=== PATIENT | female | born 1940 | race Caucasian/White ===

== ENCOUNTER 2018-04-05 11:00 | Outpatient (RCR) | payer MEDICARE, OTHER, SELFPAY ==
--- NOTE | 2018-03-17 11:04 | PTTR_ITS ---
DATE: 03/17/18 SUBJECTIVE: Pt reports that she has been experiencing difficulty with her breathing because of the weather. She states that her left knee still cont to give out at times. OBJECTIVE: Therapeutic procedures ([id number]). * X Provided skilled instruction in proper exercise performance: Pt completed static and dynamic balance activities with CGA. Pt did have slight LOB with heel toe walking. Pt completed scapular stabilization ther ex and LE strengthening. Pt completed functional sit to stands without the use of her hands. Pt completed the Nu Step for cardio. Pt's vitals were taken please see flow sheet for specifics. Direct treatment time: 30 Total treatment time: 40
--- NOTE | 2018-03-22 11:28 | PTTR_ITS ---
DATE: 03/22/18 SUBJECTIVE: Pt reports that her breathing has been difficult with this weather. She reports that when she uses the blue pads it causes knee discomfort. OBJECTIVE: Therapeutic procedures ([id number]). * X Provided skilled instruction in proper exercise performance: Pt completed static and dynamic balance activities with CGAx1, LE strengthening, functional sit to stands, scapular stabilization, and the Nu Step. Pt's vitals were taken please see flow sheet for specifics. Direct treatment time: 30 Total treatment time: 45
--- NOTE | 2018-03-29 11:10 | PTTR_ITS ---
DATE: 03/29/18 SUBJECTIVE: Heavenly states that she is feeling pretty good today, although her L knee is bothering her some today. OBJECTIVE: Therapeutic procedures ([id number]). * [X] See flow sheet: Patient completed a general strengthening and balance retraining program, as per flow sheet. Patient tolerated the addition of diagonal ball reach, well without LOB. Vitals were taken and recorded on the flow sheet. * [X] Provided skilled instruction in proper exercise performance * [X] Provided skilled manual cues to facilitate proper muscle recruitment and/or movement pattern * [X] Other: Patient ended with NuStep biking via [facility]. Direct treatment time: 30 minutes Total treatment time: 40 minutes
--- NOTE | 2018-03-31 12:15 | PTTR_ITS ---
DATE: 03/31/18 SUBJECTIVE: Heavenly states that her exercises have been going very well. She's feeling overall more stable, although continues to struggle with right knee pain. OBJECTIVE: * x Neuro Re-education - (15248 x2): Heavenly was instructed in a progressed and modified balance retraining program. Introduced javier disc activities for core stability, where patient requires CG throughout. She also requires CG with standing reach activities. Full program can be found on flow sheet with modifications as noted. Direct treatment time: 30 minutes Total treatment time: 45 minutes ,with remaining time spent in cardiovascular activity
--- NOTE | 2018-04-05 11:50 | PTTR_ITS ---
DATE: 04/05/18 SUBJECTIVE: Heavenly states that she's feeling well today. She did notice some soreness in both shoulders after her last session, which lasted a couple of days. She also notes that her allergies are bothering her and her breathing has been challenged for the past couple of days. OBJECTIVE: * x Neuro Re-education - (12319 x2): Patient was instructed in a progressed and modified NRE program. She required rest period x 2 due to CUELLAR, both during closed chain strengthening. She was able to progress standing hip AB to use of Airex pad, completing bilaterally, which she had been previously unable to tolerate due to right knee pain. Also progressed seated balance activities to included trunk rotation while seated on javier disc, where she requires cues for technique and continuous CG. * Added supervised UBE biking for cardiovascular retraining. * See flowsheet for remainder of program. Direct treatment time: 30 minutes Total treatment time: 45 minutes, with remainder of time spent in supervised cardiovascular activity
--- NOTE | 2018-04-12 09:33 | NT_ITS ---
04/12/18 Cancelled appointment for today. Ruthie Marino, APARTMENT LEASING AGENT
--- NOTE | 2018-04-14 08:31 | NT_ITS ---
Heavenly cancelled today's appointment. She and her are going on vacay for a few days, and she will touch base when they return home. Nayely Victoria Litharge Supervisor
== END 2018-04-15 23:59 | disposition home or self-care (01) ==
LOC: PT 11:00
PROVIDERS: PCP Family Medicine; Referring Provider Physician Assistant; Visit Provider Physician Assistant
DX: M76.01 Gluteal tendinitis, right hip (principal); Z91.81 History of falling; R26.89 Other abnormalities of gait and mobility
CPT/HCPCS: 97110; 97112

== ENCOUNTER 2018-10-06 20:18 | Outpatient (REF) | payer MEDICARE, OTHER, SELFPAY ==
[2018-10-06 20:56] LABS: Bilirubin Negative (Negative); Blood Moderate (Negative); Clarity Clear; Glucose Negative (Negative); Ketones Negative (Negative); Leukocyte Esterase Small (Negative); Nitrite Negative (Negative); Specific Gravity >= 1.030 (1.005-1.025); Urobilinogen 0.2 EU/dL (Up TO 0.2); pH 5.5 (5-8)
[2018-10-06 21:10] LABS: Epithelial Cells Many HPF (Negative); WBC >50 HPF (0-5)
[2018-10-06 21:11] LABS: Bacteria Negative HPF (Negative); C & S Indicated? No/Sq. Contamination; Casts Negative LPF (Negative); Crystals Rare Calcium Oxalate HPF (Negative); Mucus Negative (Negative)
== END 2018-10-06 20:38 ==
LOC: LBN 20:18
PROVIDERS: PCP Family Medicine; Visit Provider Nurse Practitioner Family
DX: R39.89 Other symptoms and signs involving the genitourinary system (principal)
CPT/HCPCS: 81003; 81015

== ENCOUNTER 2018-12-21 10:34 | Outpatient (CLI) | payer MEDICARE, OTHER, SELFPAY ==
[2018-12-21 14:40] LABS: TSH (W/Ref FT4) 2.43 uIU/mL (0.358-3.74)
== END 2018-12-21 10:54 ==
PROVIDERS: PCP Family Medicine; Visit Provider Family Medicine
DX: R79.89 Other specified abnormal findings of blood chemistry (principal); I10 Essential (primary) hypertension
CPT/HCPCS: 36415; 84443

== ENCOUNTER 2019-03-03 12:12 | Emergency (ER) | payer MEDICARE, OTHER, SELFPAY ==
[2019-03-03 12:19] VITALS: BP 128/44; PULSE 90; RESP 18; TEMP 36.6; O2SAT 93
--- NOTE | 2019-03-03 13:05 | DI.RAD_ITS ---
SYMPTOM/DIAGNOSIS: FELL, PAIN RIGHT SHOULDER: Three views. There is a comminuted fracture involving the proximal humerus. The fracture involves the surgical neck with extension into the greater tuberosity. There is mild displacement of the greater tuberosity fracture component. There are moderate degenerative changes of the acromioclavicular joint. The bones appear osteopenic. The soft tissues are unremarkable. IMPRESSION: Mildly displaced comminuted fracture involving the proximal right humerus. If further imaging is warranted, a CT scan may be considered.
[2019-03-03] MEDS: Ibuprofen 600 MG TAB (13:06)
--- NOTE | 2019-03-03 13:40 | ED.GENADUL_ITS ---
Discharge Plan Disposition Patient Disposition: HOME Condition: Stable Discharge Details Chief Complaint: Orthopedic Clinical Impression: Right humeral fracture Primary Care Provider: Linus Saha ED Provider: Ofe Bianchi Home Meds and New Rx's Prescriptions: New oxycodone 5 mg tablet 5 mg PO Q6H PRN (Reason: pain) Qty: 10 RF: 0 Continued aspirin [Adult Low Dose Aspirin] 81 mg tablet,delayed release (DR/EC) 81 mg PO DAILY RF: 0 metoprolol tartrate 25 mg tablet 25 mg PO BID Qty: 180 RF: 3 (DME) Aerochamber MV spacer See Dose Instructions .ROUTE .MEDSUPPLY Qty: 1 RF: 0 albuterol sulfate [Ventolin HFA] 90 mcg/actuation HFA aerosol inhaler 2 puff IH Q4H PRN (Reason: shortness of breath or wheezing) Qty: 8.5 RF: 11 acetaminophen 500 MG tablet 1,000 mg PO daily prn RF: 0 ranitidine HCl [Zantac Maximum Strength] 150 mg tablet 150 mg PO DAILY PRNQty: 60 RF: 5 Discharge Instructions Instructions: Proximal Humerus Fracture (ED) Additional Instructions: Rest and ice right shoulder and upper arm as much as possible. Keep your right arm in the sling until follow-up with orthopedics. Alternate Tylenol and Motrin as needed and directed for pain. Take the oxycodone if you have no relief with Tylenol or Motrin. Call Dr. Eric's office today to schedule a follow-up appointment for reeval uation. Return to the emergency department if you develop any worsening or new concerning symptoms. Referrals: Clark Eric MD [ [facility] STAFF PHYSICIAN] - Discharge Data Discharge Date/Time-TO BE ENTERED AT DEPARTURE: 03/03/19 14:24 Discharge Physician: Ofe Bianchi Medical Decision Making 78-year-old female presents with right shoulder pain status post mechanical fall directly onto her right shoulder today. No other injuries. Denies any complaint of head injury. Pain in right shoulder and upper arm with range of motion. No obvious deformity or open wounds. Neurovascularly intact. Will give a dose of ibuprofen and send for right shoulder x-ray. Right shoulder x-ray notes a proximal humerus fracture. Patient is comfortable in sling. Case discussed with Dr. Eric and agrees with plan for sling if patient comfortable and will follow up with patient next week. Patient instructed to alternate Tylenol and Motrin. She was given a prescription for oxycodone if needed for breakthrough pain. Allergy list notes an allergy to codeine but states this causes GI upset and denies any history of anaphylaxis. She is instructed to call Dr. Eric's office today to schedule a follow-up appointment for reevaluation next week and to return at anytime if worse. Medical Records Medical records reviewed: Yes I reviewed the patient's medical records. Imaging Data Radiologic Study: Radiologist's impression: RIGHT SHOULDER: Three views. There is a comminuted fracture involving the proximal humerus. The fracture involves the surgical neck with extension into the greater tuberosity. There is mild displacement of the greater tuberosity fracture component. There are moderate degenerative changes of the acromioclavicular joint. The bones appear osteopenic. The soft tissues are unremarkable. IMPRESSION: Mildly displaced comminuted fracture involving the proximal right humerus. If further imaging is warranted, a CT scan may be considered. HPI General Mode of arrival: ambulatory . Date/Time Provider Initiated Documentation: 03/03/19 12:18 . Limitations to Documentation: no limitations . Information obtained by: patient . HPI Narrative: Patient is a 78-year-old female presents with right shoulder pain after mechanical fall today. Patient states she was walking when she slipped on grass and lost her footing and fell onto her right shoulder onto the ground. She denies any head injury, vomiting, neck pain, other extremity injury, chest pain or shortness of breath. She has not taken anything for pain. She is complaining of pain mainly in her right shoulder and upper arm. Related Data Home Medications Medication Instructions Recorded Confirmed acetaminophen 1,000 mg PO daily prn tab-cap 05/01/16 03/03/19 aspirin 81 mg tablet,delayed 81 mg PO DAILY 06/22/18 03/03/19 release metoprolol tartrate 25 mg tablet 25 mg PO BID #180 tab-cap 12/21/18 03/03/19 albuterol sulfate 90 mcg/actuation 2 puff IH Q4H PRN #8.5 gm 01/24/19 03/03/19 aerosol inhaler inhalational spacing device #1 each 01/24/19 03/03/19 ranitidine HCl 150 mg tablet 150 mg PO DAILY PRN #60 tab-cap 01/24/19 03/03/19 oxycodone 5 mg PO Q6H PRN #10 tab 03/03/19 Previous Rx's Medication Instructions Recorded metoprolol tartrate 25 mg tablet 25 mg PO BID #180 tab-cap 12/21/18 albuterol sulfate 90 mcg/actuation 2 puff IH Q4H PRN #8.5 gm 01/24/19 aerosol inhaler inhalational spacing device #1 each 01/24/19 oxycodone 5 mg PO Q6H PRN #10 tab 03/03/19 Allergies Allergy/AdvReac Type Severity Reaction Status Date / Time codeine AdvReac Severe GI UPSET Unverified 03/03/19 12:26 omeprazole AdvReac Unverified 03/03/19 12:26 Edward AdvReac Severe Nausea Uncoded 03/03/19 12:26 General Stated Complaint: Orthopedic INOCENCIA: 4 Review of Systems Review of Systems All systems reviewed & are unremarkable except as noted in HPI and below Constitutional Reports as per HPI, Denies chills and Denies fever(s) Eyes Denies blurry vision ENT Denies dizziness, Denies sore throat and Denies throat swelling Cardiovascular Denies chest pain and Denies dyspnea Respiratory Denies cough and Denies dyspnea Gastrointestinal Denies abdominal pain, Denies diarrhea and Denies vomiting Genitourinary Denies hematuria and Denies dysuria Musculoskeletal Denies back pain, Denies numbness and Reports other (R shoulder pain ) Integumentary/Breasts Denies lesions and Denies rash Neurologic Denies dizziness, Denies focal weakness and Denies numbness Allergic/Immunologic Denies throat swelling [facility] Medical History COPD (chronic obstructive pulmonary disease) (Chronic) Diverticulitis (Inactive) Essential hypertension (Inactive 04/04/12) Malignant neoplasm of breast (female), unspecified site (Inactive) TIA (transient ischemic attack) (Inactive) Surgical History Cholecystectomy (09/03/16) Social History Smoking/Tobacco Use Status: Former Tobacco Use Alcohol Intake: never Drug use: Never Substance use type: does not use Do you feel safe at home: Yes Do you feel safe in your relationship?: Yes Exam Const General: cooperative, healthy appearing and no acute distress HENMT Head: normal to inspection Mouth: oral mucosae normal Eyes General: appearance normal, both eyes and all related structures Neck Neck: normal visual inspection Resp Effort & Inspection: normal respiratory effort and able to speak in complete sentences Cardio Rate: regular rate Back/Spine/Pelvis Cervical Spine: No cervical muscular tenderness, No cervical spinal tenderness and No step off deformity Skin General skin exam: no rashes or lesions noted Neuro General: alert, awake and oriented x3 Motor: muscle tone normal throughout Other: Good right hand manufacturing mechanic. Motor/sensory grossly intact right upper extremity. Extrem Other: Pain in right shoulder and upper arm with range of motion. Tenderness to palpation of right posterior shoulder. No obvious deformities noted. No tenderness palpation of right elbow, forearm, wrist or hand. Cap refill less than 2 seconds. No edema, ecchymosis or erythema noted. No open wounds noted Psych Appearance: grossly normal Affect: normal affect Course Vital Signs Temperature 97.9 F 03/03/19 12:19 Pulse 90 03/03/19 12:19 Respiratory Rate 18 03/03/19 12:19 Blood Pressure 128/44 L 03/03/19 12:19 Pulse Oximetry 93 L 03/03/19 12:19 Temperature 97.9 F 03/03/19 12:19 Temperature Source Skin 03/03/19 12:19 Pulse 90 03/03/19 12:19 Respiratory Rate 18 03/03/19 12:19 Respiratory Effort Non-Labored 03/03/19 12:25 Blood Pressure 128/44 L 03/03/19 12:19 Blood Pressure Position Sitting 03/03/19 12:19 Pulse Oximetry 93 L 03/03/19 12:19 Oxygen Delivery Method Room Air 03/03/19 12:19 Oxygen Flow Rate 0 03/03/19 12:19 Pain Level 6 03/03/19 12:19
== END 2019-03-03 14:24 | disposition home or self-care (01) ==
PROVIDERS: Emergency Provider Physician Assistant; PCP Family Medicine
DX: S42.351A Displaced comminuted fracture of shaft of humerus, right arm, initial encounter for closed fracture (principal); W01.0XXA Fall on same level from slipping, tripping and stumbling without subsequent striking against object, initial encounter; J44.9 Chronic obstructive pulmonary disease, unspecified; Z87.891 Personal history of nicotine dependence
CPT/HCPCS: 99283; 73030; L3650

== ENCOUNTER 2019-03-08 14:45 | Outpatient (CLI) | payer MEDICARE, OTHER, SELFPAY ==
--- NOTE | 2019-03-08 14:21 | DI.RAD_ITS ---
SYMPTOM/DIAGNOSIS: RT PROX HUMERUS FX RIGHT SHOULDER: Three views. Comparison 03/03/19 There has been no change in alignment of the fracture involving the proximal right humerus. There are degenerative changes seen at the acromioclavicular joint. The soft tissues are unremarkable. IMPRESSION: Stable proximal right humeral fracture.
== END 2019-03-08 15:05 ==
PROVIDERS: PCP Family Medicine; Referring Provider Family Medicine; Visit Provider Student in an Organized Health Care Education/Training Program
DX: S42.291A Other displaced fracture of upper end of right humerus, initial encounter for closed fracture (principal); W01.0XXA Fall on same level from slipping, tripping and stumbling without subsequent striking against object, initial encounter
CPT/HCPCS: 99203; 99213; 73030

== ENCOUNTER 2019-04-03 13:54 | Outpatient (CLI) | payer MEDICARE, OTHER, SELFPAY ==
--- NOTE | 2019-04-03 10:57 | DI.RAD_ITS ---
SYMPTOM/DIAGNOSIS: F/U FRACTURE RIGHT SHOULDER: 04/03 Three views were obtained and show previously described proximal humeral fracture with no gross interval change in alignment of the fracture fragments allowing for differences in projection in comparison with examination of March 08. There is mild callus formation at the fracture site.
== END 2019-04-03 14:14 ==
PROVIDERS: PCP Family Medicine; Referring Provider Family Medicine; Visit Provider Student in an Organized Health Care Education/Training Program
DX: X58.XXXA Exposure to other specified factors, initial encounter (principal); S42.291A Other displaced fracture of upper end of right humerus, initial encounter for closed fracture
CPT/HCPCS: 99213; 73030

== ENCOUNTER 2019-05-01 11:34 | Outpatient (CLI) | payer MEDICARE, OTHER, SELFPAY ==
--- NOTE | 2019-05-01 11:12 | DI.RAD_ITS ---
SYMPTOMS/DIAGNOSIS: F/U FRACTURE RIGHT SHOULDER: The study is compared with the previous exam of 04/03/19. There has been further filling in of the fracture line in the proximal humerus. There has been no interval change in the alignment of the fracture fragments. There is nothing to suggest that healing is not progressing satisfactorily at the present time.
== END 2019-05-01 11:54 ==
PROVIDERS: PCP Family Medicine; Visit Provider Student in an Organized Health Care Education/Training Program
DX: S42.291A Other displaced fracture of upper end of right humerus, initial encounter for closed fracture (principal); X58.XXXA Exposure to other specified factors, initial encounter; I10 Essential (primary) hypertension; J44.9 Chronic obstructive pulmonary disease, unspecified; Z87.891 Personal history of nicotine dependence
CPT/HCPCS: 99213; 73030

== ENCOUNTER 2019-06-12 13:12 | Outpatient (CLI) | payer MEDICARE, OTHER, SELFPAY ==
--- NOTE | 2019-06-12 13:03 | DI.RAD_ITS ---
EXAM: XR SHOULDER RT COMPLETE 2+V INDICATION: f/u of right humerus fracture. COMPARISON: XR shoulder RT complete 2+V from 05/01/2019 TECHNIQUE: 2D digital imaging was performed. FINDINGS: There has been no change in alignment of the healing proximal right humeral fracture. No new fractur e or dislocation is identified. There are degenerative changes seen at both the acromioclavicular madonna int and the glenohumeral joint. There is a spur off the inferior aspect of the acromion. The soft t issues are unremarkable. IMPRESSION: Stable proximal right humeral fracture.
== END 2019-06-12 13:32 ==
PROVIDERS: PCP Family Medicine; Referring Provider Family Medicine; Visit Provider Student in an Organized Health Care Education/Training Program
DX: S42.291D Other displaced fracture of upper end of right humerus, subsequent encounter for fracture with routine healing (principal); M75.81 Other shoulder lesions, right shoulder; M19.011 Primary osteoarthritis, right shoulder
CPT/HCPCS: 99213; 73030

== ENCOUNTER 2019-07-17 14:32 | Outpatient (CLI) | payer MEDICARE, OTHER, SELFPAY ==
--- NOTE | 2019-07-17 14:49 | DI.RAD_ITS ---
EXAM: XR SHOULDER RT COMPLETE 2+V INDICATION: F/U FRACTURE. COMPARISON: XR shoulder RT complete 2+V from 05/01/2019 XR SHOULDER RT COMPLETE 2+V from 06/12/2019 TECHNIQUE: 2D digital imaging was performed. FINDINGS: There has been continued healing of the proximal right humeral fracture. No change in alignment of t he fracture is noted. No new fractures or dislocations are present. Degenerative changes are seen i n the glenohumeral joint and the acromioclavicular joint. The soft tissues are unremarkable.
== END 2019-07-17 14:52 ==
PROVIDERS: PCP Family Medicine; Referring Provider Family Medicine; Visit Provider Student in an Organized Health Care Education/Training Program
DX: S42.351D Displaced comminuted fracture of shaft of humerus, right arm, subsequent encounter for fracture with routine healing (principal); M19.011 Primary osteoarthritis, right shoulder; X58.XXXD Exposure to other specified factors, subsequent encounter; J44.9 Chronic obstructive pulmonary disease, unspecified; Z87.891 Personal history of nicotine dependence; I10 Essential (primary) hypertension
CPT/HCPCS: 99213; 73030

== ENCOUNTER 2019-12-19 10:45 | Outpatient (CLI) | payer MEDICARE, OTHER, SELFPAY ==
[2019-12-19] MEDS: Omnipaque 350 MG/ML 50 ML BTL IJ (14:54)
[2019-12-19] MEDS: Breeza Beverage 473 ML BTL PO ×2 (14:55→14:56)
[2019-12-19 14:58] LABS: Abs Immature Grans 0.05 k/cumm (0.0-0.09); Absolute Basophil Count 0.02 k/cumm (0.0-0.2); Absolute Eosinophil Count 0.18 k/cumm (0.0-0.7); Absolute Lymphocyte Count 1.79 k/cumm (1.2-3.4); Absolute Monocyte Count 1.15 k/cumm (0.11-0.7); Absolute Neutrophil Count 13.42 k/cumm (1.2-6.7); Basophils % 0.1; Eosinophils % 1.1; HCT 42.2 % (36.0-46.0); HGB 12.7 g/dL (12.0-15.5); Immature Grans % 0.3 %; Lymphocytes % 10.8; Mean Corp. HGB Concentration 30.1 g/dL (32.0-36.0); Mean Corpuscular Volume 86.5 fL (80-95); Mean Platelet Volume 9.4 fL (8.0-11.0); Monocytes % 6.9; Neutrophils % 80.8; Platelet Count 600 x1000/uL (130-400); RBC 4.88 m/cumm (4.00-5.20); RBC Distribution Width 15.9 % (11.7-14.6); White Blood Cell Count 16.61 k/cumm (4.4-10.8)
[2019-12-19 15:06] LABS: ALT 15 U/L (14-59); AST 13 U/L (15-37); Albumin 2.6 g/dL (3.4-5.0); Alkaline Phosphatase 73 U/L (46-116); Anion Gap 6.4 mmol/L (3-11); BUN 8 mg/dL (7-18); Bilirubin, Total 0.6 mg/dL (0.2-1.0); CO2 30.6 mmol/L (21.0-32.0); CREATININE 0.76 mg/dL (0.55-1.02); Calcium 9.1 mg/dL (8.5-10.1); Chloride 99 mmol/L (98-107); Glucose 122 mg/dL (74-106); Potassium 3.9 mmol/L (3.5-5.1); Sodium 136 mmol/L (136-145); Total Protein 7.4 g/dL (6.4-8.2)
--- NOTE | 2019-12-19 15:45 | DI.CT_ITS ---
EXAM: CT ABDOMEN PELVIS WO CLINICAL HISTORY: lower abd pain, nausea, abd wall bulge, R11.0, R19.00. TECHNIQUE: Imaging Protocol: Axial computed tomography images with coronal and sagittal reformatted images were created and reviewed. Oral: Yes COMPARISON: ABD PELVIS WITH CONTRAST from 09/03/2016 FINDINGS: The exam is limited by patient's refusal of IV contrast as well as motion. A limited amount oral contrast is seen within loops of small bowel. ABDOMEN: Lung Bases: Mild respiratory motion. No effusion or infiltrate. Normal heart size. Mild coronary a rtery calcifications. Liver: Mild fatty infiltration. No measurable mass. Gallbladder and biliary tract: Status post cholecystectomy. No biliary dilation. Pancreas: Normal density, no abnormal calcifications or inflammatory process. Spleen: Normal. Kidneys: Normal size, contour and axis. No radiodense stones or obstructive uropathy. No masses seen. Adrenal glands: A circumscribed mass is seen on the left adrenal gland containing fat. Findings coul d represent an adenoma versus angiomyolipoma.. Lymph nodes: Within normal limits. Abdominal Aorta: Abdominal portion non-dilated. Sszs-fc-[id number] calcifications. PELVIS: Bladder: Symmetric distention, no gross wall thickening. Bowel: Small hiatal hernia. Diverticulosis greatest of the sigmoid. No diverticulitis. Normal appe ndix no obstruction or bowel wall thickening. Soft tissues: There is a low-density collection seen within or adjacent to the right lateral rectus muscle. It measures 16 by 13.5 x 8.4 cm. It has a so mewhat lobulated contour or. It measures water density. Findings could represent a seroma or hemato ma. Peritoneal cavity: No ascites, collection or mesenteric inflammatory response. Reproductive organs: Within normal limits. Bones: Mild degenerative disc changes. IMPRESSION: Lobulated low-density collection adjacent to the right lateral rectus muscle could represent a post traumatic hematoma or seroma. Evaluation for solid mass is limited without IV contrast. RADIATION DOSE DELIVERED: Total DLP DATA REPOSITORY: All CT scans at this facility are submitted to the National Radiology Data Registry (NRDR) Dose Index Registry (DIR) with the [employer] (ACR). RADIATION OPTIMIZATION: All CT scans at this facility use at least one of these dose optimization te chniques: automated exposure control; mA and/or kV adjustment per patient size (includes targeted exa ms where dose is matched to clinical indication); or iterative reconstruction.
== END 2019-12-19 11:05 ==
PROVIDERS: PCP Family Medicine; Visit Provider Family Medicine
DX: R10.32 Left lower quadrant pain (principal); R11.0 Nausea; R19.00 Intra-abdominal and pelvic swelling, mass and lump, unspecified site; D64.9 Anemia, unspecified; K76.0 Fatty (change of) liver, not elsewhere classified; D44.12 Neoplasm of uncertain behavior of left adrenal gland; K44.9 Diaphragmatic hernia without obstruction or gangrene
CPT/HCPCS: 36415; 80053; 74176; 85025; Q9967

== ENCOUNTER → 2019-12-20 09:55 | Outpatient (BNVA) | payer MEDICARE, OTHER, SELFPAY | PROVIDERS: PCP Family Medicine; Referring Provider Family Medicine; Visit Provider Surgery | DX: S30.1XXA Contusion of abdominal wall, initial encounter; X58.XXXA Exposure to other specified factors, initial encounter; R11.0 Nausea; R19.00 Intra-abdominal and pelvic swelling, mass and lump, unspecified site; D72.828 Other elevated white blood cell count; L08.9 Local infection of the skin and subcutaneous tissue, unspecified; I10 Essential (primary) hypertension; J44.9 Chronic obstructive pulmonary disease, unspecified ==

== ENCOUNTER 2019-12-20 11:36 | Outpatient (REF) | payer MEDICARE, OTHER, SELFPAY ==
[2019-12-20 11:45] LABS: Abs Immature Grans 0.07 k/cumm (0.0-0.09); Absolute Basophil Count 0.04 k/cumm (0.0-0.2); Absolute Eosinophil Count 0.16 k/cumm (0.0-0.7); Absolute Lymphocyte Count 1.68 k/cumm (1.2-3.4); Absolute Neutrophil Count 14.64 k/cumm (1.2-6.7); Basophils % 0.2; Eosinophils % 0.9; HCT 42.9 % (36.0-46.0); HGB 13.1 g/dL (12.0-15.5); Immature Grans % 0.4 %; Lymphocytes % 9.3; Mean Corp. HGB Concentration 30.5 g/dL (32.0-36.0); Mean Corpuscular Volume 85.3 fL (80-95); Mean Platelet Volume 9.8 fL (8.0-11.0); Monocytes % 8.3; Neutrophils % 80.9; Platelet Count 592 x1000/uL (130-400); RBC 5.03 m/cumm (4.00-5.20); RBC Distribution Width 16.1 % (11.7-14.6)
[2019-12-20 12:02] LABS: ALT 17 U/L (14-59); AST 14 U/L (15-37); Albumin 2.7 g/dL (3.4-5.0); Alkaline Phosphatase 79 U/L (46-116); Anion Gap 7.5 mmol/L (3-11); BUN 9 mg/dL (7-18); Bilirubin, Total 0.6 mg/dL (0.2-1.0); C-Reactive Protein 22.52 mg/dL (0.0-0.3); CO2 32.5 mmol/L (21.0-32.0); CREATININE 0.74 mg/dL (0.55-1.02); Calcium 8.9 mg/dL (8.5-10.1); Chloride 98 mmol/L (98-107); Glucose 105 mg/dL (74-106); Potassium 4.6 mmol/L (3.5-5.1); Sodium 138 mmol/L (136-145); Total Protein 6.7 g/dL (6.4-8.2)
== END 2019-12-20 11:56 ==
LOC: LBN 11:36
PROVIDERS: PCP Family Medicine; Visit Provider Surgery
DX: D72.828 Other elevated white blood cell count; R11.0 Nausea; R19.09 Other intra-abdominal and pelvic swelling, mass and lump; R10.9 Unspecified abdominal pain
CPT/HCPCS: 80053; 87040; 85025; 85610; 86140

== ENCOUNTER 2019-12-20 12:42 | Inpatient (IN) | payer MEDICARE, OTHER, SELFPAY ==
[2019-12-20] VITALS (9 sets, daily range): BP systolic 104–159; BP diastolic 39–72; PULSE 88–100; RESP 17–28; TEMP 36.2–36.8; O2SAT 91–100
--- NOTE | 2019-12-20 12:52 | W.PM.HP.N ---
Date of service: 12/20/19 Time of Service: 12:53 Assessment and Plan Assessment and plan (1) Nausea: Status: Acute (2) Abdominal wall hematoma: Status: Acute (3) Other elevated white blood cell count: Status: Acute (4) Abdominal wall bulge: Status: Acute (5) Uncomplicated asthma: Status: Acute (6) Elevated TSH: Status: Chronic (7) Transient cerebral ischemia: Status: Acute (8) Palpitations: Status: Acute (9) Increased body mass index: Status: Chronic (10) History of tobacco use: Status: Acute (11) Chronic obstructive pulmonary disease: Status: Acute (12) Hiatal hernia: Status: Acute (13) Traumatic hematoma of abdominal wall with infection: Status: Acute Assessment and plan: will go for I&D today start on zosyn cultures-pd ct and labs reviewed risks:bleeding/infection/scarring/need for mult surgeries/complications of anethesia/others History of Present Illness Consults Consult date: 12/20/19 Narrative: pt was seen in office today regarding ant abdomal wall mass- which appears to be lg fluid collection. it appears to be a heatoma. Pt was moving a safe about a month ago and started having pain. She notes it has b/c more painful. She has nause, dizziness, can't eat. increasing pain. no redness/drianage. denies fever/chills. she is on asa- she is not sure why she is on it. does not take any other blood thinners. She does not take NSAID's. no hx of bleeding d/o. hgb was nl WBC yest was 16. repeat wbc in office today is 18. she will be taken to or for I&D. Review of Systems All systems reviewed & are unremarkable except as noted in HPI and below PFSH Medical History (Updated 12/20/19 @ 21:53 by Radha Cartwright DO) Abdominal wall hematoma (Acute) Allergy (Acute) COPD (chronic obstructive pulmonary disease) (Chronic) Diverticulitis (Acute) Essential hypertension (Acute 04/04/12) Malignant neoplasm of breast (female), unspecified site (Acute) LEFT BREAST Nausea (Acute) Nausea (Acute) Other elevated white blood cell count (Acute) Phlegm in throat (Acute) TIA (transient ischemic attack) (Inactive) Traumatic hematoma of abdominal wall with infection (Acute) Surgical History Cholecystectomy (09/03/16) Social History Smoking/Tobacco Use Status: Former Tobacco Use Quit Date: 12/14/88 Alcohol Intake: never Drug use: Never Substance use type: does not use Current gender identity: female Do you feel safe at home: Yes Do you feel safe in your relationship?: Yes Meds Home Medications and Allergies Home Medications Medication Instructions Recorded Confirmed Type acetaminophen 1,000 mg PO daily prn tab-cap 05/01/16 12/20/19 History aspirin 81 mg tablet,delayed 81 mg PO DAILY 06/22/18 12/20/19 History release metoprolol tartrate 25 mg tablet 25 mg PO BID #180 tab-cap 12/21/18 12/20/19 Rx albuterol sulfate 90 mcg/actuation 2 puff IH Q4H PRN #8.5 gm 01/24/19 12/20/19 Rx aerosol inhaler inhalational spacing device #1 each 01/24/19 12/19/19 Rx dimenhydrinate 25 mg chewable 50 mg PO Q8H PRN 12/19/19 12/20/19 History tablet famotidine 20 mg tablet 20 mg PO DAILY PRN 12/19/19 12/20/19 History prochlorperazine maleate 10 mg 10 mg PO Q8H PRN #20 tab 12/19/19 12/20/19 Rx tablet Allergies Allergy/AdvReac Type Severity Reaction Status Date / Time codeine AdvReac Severe GI UPSET Unverified 12/20/19 10:03 omeprazole AdvReac Unverified 12/20/19 10:03 Edward AdvReac Severe Nausea Uncoded 12/20/19 10:03 Exam HENMT Head: normal to inspection Teeth and gingiva: edentulous Other: tongue- nl no jaundice Neck Other: sclera clear no JVD Chest Chest: normal inspection of the chest Resp Effort & Inspection: normal respiratory effort and able to speak in complete sentences Auscultation: clear to auscultation bilaterally GI Inspection: other Other: 8x8 soft tissue fluid collection right side lateral to the umbilicus. no echo=ymosis/redness/drainage. ballotable. noted on US- appears mostly liquid. very tender Skin General skin exam: no rashes or lesions noted Extrem Other: change sin joints consistent w/ OA. mild LE edema COVID-19 Screening Traveled to [place] from one of the affected countries or regions?: NO Recent travel in the [place] within the last 14 days?: No Recent out of the country travel within the last 14 days?: No Had IN PERSON contact w/suspected or confirmed C-19 person: No Have you had the following symptoms in the past few days?: No Symptoms noted since travel?: No Symptoms
--- NOTE | 2019-12-20 14:30 | DI.RAD_ITS ---
EXAM: XR CHEST 2V PA LATERAL CLINICAL HISTORY: hx of breast cancer TECHNIQUE: 2D digital imaging was performed. COMPARISON: ABD FLAT UPRIGHT PA CHEST from 09/03/2016 LEFT SHOULDER COMPLETE from 11/18/2017 FINDINGS: The heart size is normal. The aorta is mildly tortuous. The lung bases are partially obscured by ab dominal soft tissues. The lungs appear clear. Degenerative changes are seen in the thoracic spine. There is also degenerative changes of both shoulders, right greater than left. IMPRESSION: No acute pulmonary findings. DATA REPOSITORY: RADIATION DOSE DELIVERED:
[2019-12-20 14:56] LABS: Iron 27 ug/dL (50-170); Total Iron Binding Capacity 172 ug/dL (250-450); Transferrin Sat 16 % (15-50)
[2019-12-20] MEDS: Lactated Ringers 1,000 ML 30 ML IV (15:05)
[2019-12-20] MEDS: PIPERACILLIN/TAZO 3.375 GM in Normal Saline 50 ML IVPB ×2 (15:05→19:14)
[2019-12-20 15:06] LABS: INR 1.1 (0.9-1.1); Prothrombin Time 10.7 sec (9.3-11.0)
[2019-12-20 15:10] LABS: Ferritin 410 ng/mL (8-252)
[2019-12-20] MEDS: Bupivacaine 0.25% Pres-Free 30 ML VIAL (16:31)
--- NOTE | 2019-12-20 16:35 | W.PM.OP ---
Date of service: 12/20/19 Time of Service: 16:35 Operative Note Operative Note DATE OF PROCEDURE: 12/20/19 POST-OP DIAGNOSIS: same PROCEDURE: I & D of right lateral anterior abdominal wall. [id number]- irregular shaped cavity. SURGEON: Radha Cartwright ANESTHESIA: MEHRDADA ESTIMATED BLOOD LOSS: 50 PATHOLOGY: other COMPLICATIONS: None Patient was transported to: PACU Findings: 800cc of purulent discharge evacuated- minimal old hematoma and necrotic debris. Procedure Description: Patient is here today for evacuation of infected hematoma is seen by CAT scan and bedside ultrasound. She has a white count of 18,000. She did receive blood cultures and preop antibiotics. Informed consent is obtained explaining risks and benefits of procedure including but not limited to: Bleeding, infection, pneumonia, blood clots, complications of anesthesia, scarring, need for repeat procedures, healing complication is and other unforetold complications. Patient is brought to the operating room suite and placed in supine position. Anesthesia was administrated per the department of an anesthesia. Patient is prepped and draped in the usual sterile fashion using a Betadine scrub solution. Timeout is performed. 20 cc of quarter percent Marcaine is used to anesthetize the area. A #15 blade is used to make a 1 inch incision over the apex of the abscess- which is the right lateral anterior abdominal wall. This probably started in the right rectus muscle. 800 cc of purulent drainage and infected hematoma and necrotic is removed. The wound is then irrigated with 3 L of sterile saline. It measures 22 cm x 24 cm x 7 cm. 2 JPs are placed in the wound 1 superiorly and laterally and one interiorly and medially. These are sewn in with 2-0 nylon. Sterile compression dressing is applied. Patient tolerated the procedure well is transferred to recovery room in stable condition. Patient will be admitted for IV antibiotics.
[2019-12-20] MEDS: Normal Saline 1,000 ML 75 ML IV (17:23)
[2019-12-20] MEDS: Sennosides/Docusate Sodium TAB 1 TAB PO (19:14)
[2019-12-20] MEDS: Metoprolol 25 MG TAB PO (19:14)
[2019-12-20] MEDS: Acetaminophen 325 MG TAB 650 MG PO (21:50)
[2019-12-20] MEDS: traMADol 50 MG TAB PO (21:51)
--- NOTE | 2019-12-20 21:52 | W.PM.PROGNOT ---
Date of Service Date of service: 12/20/19 Time of Service: 22:10 Assessment and Plan Assessment and plan (1) Abdominal wall hematoma: Status: Acute (2) Traumatic hematoma of abdominal wall with infection: Status: Acute Assessment and plan: The patient is doing well post-op. There pain is well controlled. They are having no nausea or vomiting. The pt is not having any chest pain or SOB, productive cough; no calf pain or swelling. The pt pain is adequately controlled. The case was discussed with nursing and pateints progress reviewed. All of the pt's home medications were addressed and adjusted accordingly for their oral intact status. HEENT: no jaundice. no eye pain/drainage/redness/swelling. mild sore throat cardio- NSR no chest pain, BP stable. pulm: no sob or productive cough. no hemoptysis incision- clean/dry. dressing intact no excessive bleeding or drainage I discussed with the patient and/or there family about the findings in surgery and the pt's progress. We reviewed expectations for progress in the hospital; what the pt could expect for recovery time and length of stay. We discussed the importance of walking and pulmonary toilet to avoid blood clots and pneumonia. Continue current plans for pulmonary toilet, GI and DVT prophylaxis. We shall continue the current plan for pain management as it is at an appropriate level and working well for the pt. Appropriate measures will be taken for constipation prevention as well, and this was also reviewed with the pt. wound care plan was reviewed with nursing as well. see orders cultures-pd abx- zosyn hold asa/lovenox consult care management for home health Objective Objective Clinical Data: Abnormal lab results 12/20/19 12/20/19 Range/Units 13:55 13:55 Iron 27 L (50-170) ug/dL TIBC 172 L (250-450) ug/dL Ferritin 410 H (8-252) ng/mL Vital Signs Temperature 36.2 C L 12/20/19 19:20 Temperature Source Tympanic 12/20/19 19:20 Pulse 100 H 12/20/19 19:20 Pulse Rhythm Regular 12/20/19 19:29 Respiratory Rate 18 12/20/19 19:20 Respiratory Effort Non-Labored 12/20/19 19:29 Respiratory Depth Normal 12/20/19 19:29 Respiratory Pattern Normal 12/20/19 13:07 Blood Pressure 130/60 05/06/20 19:20 Pulse Oximetry 93 L 12/20/19 19:44 Respiratory End-tidal CO2 36 12/20/19 16:43 Oxygen Delivery Method Room Air 12/20/19 19:44 Oxygen Flow Rate 0 12/20/19 19:44 Pain Level 4 12/20/19 21:51 Intake & Output 12/19/19 12/20/19 12/20/19 23:59 11:59 23:59 Intake Total 550 / 550 Balance 550 / 550 Weight 90.8 kg Intake: IV 550 / 550 Laboratory Results PT 10.7 sec (9.3-11.0) 12/20/19 13:55 INR 1.1 (0.9-1.1) 12/20/19 13:55 Iron 27 ug/dL (50-170) L 12/20/19 13:55 TIBC 172 ug/dL (250-450) L 12/20/19 13:55 Transferrin % Sat 16 % (15-50) 12/20/19 13:55 Ferritin 410 ng/mL (8-252) H 12/20/19 13:55 COVID-19 PCR Cancelled 12/20/19 17:13 Nasopharyn COVID-19 PCR Cancelled 12/20/19 17:13 Ref Test Perform Site Cancelled 12/20/19 17:13
[2019-12-21] VITALS (8 sets, daily range): BP systolic 108–125; BP diastolic 44–75; PULSE 62–86; RESP 17–20; TEMP 36.2–36.5; O2SAT 87–99
[2019-12-21] LABS: COVID-19 RT-PCR UVMMC Result Negative (Negative)
[2019-12-21] MEDS: Normal Saline 1,000 ML 30 ML IV (00:56)
[2019-12-21] MEDS: PIPERACILLIN/TAZO 3.375 GM in Normal Saline 50 ML IVPB ×4 (02:22→20:57)
[2019-12-21 07:08] LABS: Abs Immature Grans 0.05 k/cumm (0.0-0.09); Absolute Lymphocyte Count 1.18 k/cumm (1.2-3.4); Absolute Monocyte Count 0.61 k/cumm (0.11-0.7); HCT 37.6 % (36.0-46.0); HGB 11.5 g/dL (12.0-15.5); Immature Grans % 0.3 %; Mean Corp. HGB Concentration 30.6 g/dL (32.0-36.0); Mean Corpuscular Hemoglobin 26.3 pg (27.0-33.0); Mean Platelet Volume 9.4 fL (8.0-11.0); Monocytes % 4.1; Neutrophils % 87.6; Platelet Count 578 x1000/uL (130-400); RBC 4.37 m/cumm (4.00-5.20); RBC Distribution Width 15.8 % (11.7-14.6); White Blood Cell Count 14.76 k/cumm (4.4-10.8)
[2019-12-21 07:09] LABS: Absolute Neutrophil Count 12.93 k/cumm (1.2-6.7)
[2019-12-21 07:16] LABS: C-Reactive Protein 15.92 mg/dL (0.0-0.3)
[2019-12-21 07:39] LABS: Hemoglobin A1C 6.9 % (3.8-5.6)
[2019-12-21] MEDS: Metoprolol 25 MG TAB PO ×2 (07:59→20:31)
--- NOTE | 2019-12-21 08:45 | PT.INIE ---
Date of service: 12/21/19 Time of Service: 08:44 PT Notes Visit Reasons: INFECTED ABDOMINAL WALL HEMATOMA Physical Therapy Inpatient Initial Evaluation Date: 12/21/2019 Referring Doctor: Radha Cartwright MD PT Orders: PT CONSULT: Eval/treat Precautions: Fall. Standard. Activity as tolerated. Patient Profile/Admitting Diagnosis: Patient is an 79-year-old female who who is status post incision and drainage of an infected abdominal wall hematoma on 12/20/2019. PMHX: Medical History (Updated 12/20/19 @ 21:53 by Radha Cartwright DO) Abdominal wall hematoma (Acute) Allergy (Acute) COPD (chronic obstructive pulmonary disease) (Chronic) Diverticulitis (Acute) Essential hypertension (Acute 04/04/12) Malignant neoplasm of breast (female), unspecified site (Acute) LEFT BREAST Nausea (Acute) Other elevated white blood cell count (Acute) Phlegm in throat (Acute) TIA (transient ischemic attack) (Inactive) Traumatic hematoma of abdominal wall with infection (Acute) Surgical History Cholecystectomy (09/03/16) Social History/Home Situation: Heavenly lives with in a private home with 13 steps to enter with rails on both sides. At baseline she is modified independent with all ambulation activities using the front wheeled walker. She states that although she is able to manage her bathing, is there supervising to make sure that she is safe and she has everything she needs. She also indicated that does the cooking and meal preparation at home. Their daughter does grocery shopping for them. provides transportation for patient as needed as patient states she will not drive even though she still can. She elaborates that she does not sleep in bed but uses her manual reclining chair as it is more comfortable. Equipment Owned/DME: Wheelchair, shower seat, walk-in shower, manual recliner Subjective: Patient complained about being dizzy towards the end of ambulation activity and while resting on the wheelchair. She states that the dizziness comes and goes. She reports a burning sensation over and around surgical incision when she transitions from supine to sit and sit to supine. She refused manual muscle testing for the right hip in sitting as she does not want to aggravate the abdominal incision. Patient states that she has fallen over more than two times in the past 12 months, she is unable to recall exact number. Objective: General Observation: Telemetry monitoring in place. Bilateral TEDS on. Wound dressing seen over surgical incision. Mental Status: Alert and oriented x4 Pain: Reports some soreness and discomfort over surgical incision with bed mobility and ambulation activity Vital Signs: Patient was checked for orthostatic hypotension with nurse Myrna present in room ROM: Right Upper Extremity: Shoulder Flexion only allows up to 90 degrees. Shoulder abduction only allows up to 90 degrees. Elbow flexion WFL. Wrist flexion WFL. Opening and closing of hand WFL. Left Upper Extremity: Shoulder Flexion WFL. Shoulder abduction WFL. Elbow flexion WFL. Wrist flexion WFL. Opening and closing of hand WFL. Right Lower Extremity: Hip flexion NT. Hip abduction WFL. Knee flexion WFL. Ankle dorsiflexion WFL. Ankle plantarflexion WFL. Left Lower Extremity: Hip flexion WFL. Hip abduction WFL. Knee flexion WFL. Ankle dorsiflexion WFL. Ankle plantarflexion WFL. Strength: Right Upper Extremity: Shoulder flexors 3-/5. Shoulder abductors 3-/5. Elbow flexors 4-/5. Elbow extensors 4-/5. [employer] strong. Left Upper Extremity: Shoulder flexors 4-/5. Shoulder abductors 4-/5. Elbow flexors 4-/5. Elbow extensors 4-/5. F[employer] strong. Right Lower Extremity: Hip flexors NT. Hip abductors 4-/5. Knee flexors 4-/5. Knee extensors 4-/5. Ankle dorsiflexors 4-/5. Ankle plantarflexors 4/5. Left Lower Extremity:Hip flexors 4-/5. Hip abductors 4-/5. Knee flexors 4-/5. Knee extensors 4-/5. Ankle dorsiflexors 4-/5. Ankle plantarflexors 4/5. Sensation: Intact as to pain and pressure on bilateral lower extremities. Bed Mobility/Transfers: Rolling minimal assist Supine to sit minimal assist with HOB at 30 degrees, patient complains of burning sensation over surgical incision Sit to supine minimal assist with HOB at 30 degrees, patient complains of burning sensation over surgical incision Sit to stand contact-guard assist using BUE for support with front wheeled walker Stand to sit contact-guard assist using BUE for support with front wheeled walker Bed to chair contact-guard assist using BUE for support with front wheeled walker Chair to bed contact-guard assist using BUE for support with front wheeled walker Gait: Patient was able to tolerate short distance ambulation of 20 feet +10 feet using front wheeled walker with full weight bearing requiring only contact-guard assist by PT. Reciprocal step through gait pattern. Decreased step height and length. Decreased asuncion. Complaint of dizziness towards the end of the walk. Balance: Static Sitting: Normal Dynamic Sitting: Normal Static Standing: Fair Dynamic Standing: Fair Special Tests: Mobility Limitations Standardized Measure [facility] AM-PAC 6 clicks Basic Mobility Inpatient Short Form: Raw Score: 18 CMS Score: 47% deficit Informed Consent/Education: Patient instructed in purpose of PT consult and plan of care. Assessment: Need for assistive device during mobility ADL performance. Balance impairment. Decreased activity tolerance. Difficulty with walking. High fall risk. Patient is an 79-year-old female who who is status post incision and drainage of an infected abdominal wall hematoma on 12/20/2019. Patient presents with clinical signs and symptoms consistent with current/admitting diagnoses that have resulted to mobility limitations, gait instability, generalized weakness, and impairment of motor control as demonstrated by the following impairment level findings: 1. Decreased strength to B LE major muscle groups 2. Impaired standing balance 3. Impaired activity tolerance 4. Limitation of joint range of motion in right shoulder (chronic) Impairments are contributing to the following functional limitations: 1. Dependent bed mobility skills 2. Increased dependence with transfers 3. Inability to safely ambulate without assistive device and physical assistance 4. Increase completion time for mobility ADL performance 5. Increased fall risk 6. Inability to negotiate steps alone safely Patient is assessed as a 09914 moderate complexity based on the following: History: Patient is an 79-year-old female with impairment level findings, functional limitations, and past medical history as listed above Examination: Demonstrable impairment in strength, balance, and range of motion with underlying impairments and functional limitations as documented above Presentation:Evolving Decision Makin moderate Goals: Goals X1 week 1. Supine-Sit independent 2. Sit-Supine independent 3. Sit-Stand independent 4. Stand-Sit independent 5. Bed-Chair independent 6. Chair-Bed independent 7. Independent gait on level surface with use of front wheeled walker for at least 300 feet without report of pain nor dyspnea 8. Independent stair negotiation while holding onto bilateral rails for at least 10 steps without report of pain nor dyspnea 9. Independent with home exercise program 10. Good static and dynamic standing balance/tolerance Plan of Care/Treatment Plan: 1-2x/day, 7 days/week x 1 week. Initiate Physical Therapy intervention for strengthening, bed mobility, transfers, gait, stairs, balance training, use of assistive device. PT Intervention: Session for today consisted of initial physical therapy evaluation evaluation as well as education training with safe mobility ADL performance using front wheeled walker. DISCHARGE RECOMMENDATIONS: Patient will benefit from home health PT services in order to progress mobility level using least restrictive assistive ambulatory device, assess home safety, identify additional equipment needs, and establish a functional maintenance program that will increase ability of patient to remain at home. TREATMENT CODE/TIME: 79737 x 25 minutes, 9753 0 x 23 minutes beginning at 8:44 AM. Thank you very much for this referral. Arielle Fay PT, DPT, CLT [facility] [place], [place]
--- NOTE | 2019-12-21 09:13 | PDOC.CMIN ---
- If Service Date Differs Date of service: 12/21/19 Time of Service: 09:13 Care Management Initial Assess REASON FOR HOSPITALIZATION:: Abdominal wall hematoma PAST MEDICAL HISTORY/PAST SURGICAL HISTORY:: Medical History (Updated 12/20/19 @ 21:53 by Radha Cartwright DO). Abdominal wall hematoma (Acute). Allergy (Acute). COPD (chronic obstructive pulmonary disease) (Chronic). Diverticulitis (Acute). Essential hypertension (Acute 04/04/12). Malignant neoplasm of breast (female), unspecified site (Acute). LEFT BREAST. Nausea (Acute). Nausea (Acute). Other elevated white blood cell count (Acute). Phlegm in throat (Acute). TIA (transient ischemic attack) (Inactive). Traumatic hematoma of abdominal wall with infection (Acute). Surgical History . Cholecystectomy (09/03/16) PREVIOUS FUNCTIONAL STATUS/SOCIAL/FAMILY SUPPORTS:: Heavenly lives in [place] with her of 62 years, Arthur. They have 2 daughters who live in the area as well as several grandchildren and great grandchildren. Heavenly has been retired for many years but worked at [employer] in [place]. She uses a cane, walker and wheelchair to assist with ambulation. Heavenly continues to drive but states she has not done so in quite some time. ADVANCE DIRECTIVES:: None on file Has patient been provided with information about the portal?: Yes Did the patient sign up for the portal?: Yes CODE STATUS:: Full Code INSURANCE COVERAGE / FINANCIAL ISSUES:: Medicare. [employer] CURRENT HOME/COMMUNITY SERVICES/EQUIPMENT:: Heavenly has a cane, a wheelchair and a walker. She does not receive any community services at this time but has had Meals on Wheels in the past. PRIMARY CARE PHYSICIAN:: Linus Saha POTENTIAL DISCHARGE NEEDS:: Follow up with surgeon and discharge plan of care PATIENT/FAMILY EDUCATION NEEDS:: Discharge plan, limitations, follow up plan, Ask Me Three TRANSPORTATION:: via private vehicle with family PLAN:: Heavenly will likely be discharged home with no new services. She will follow up with her surgeon, PCP and discharge plan of care. She will transport via private vehicle with family.CM will continue to support patient, family and discharge planning needs.
--- NOTE | 2019-12-21 12:26 | W.PM.PROGNOT ---
Date of Service Date of service: 12/21/19 Time of Service: 09:45 Assessment and Plan Assessment and plan (1) Traumatic hematoma of abdominal wall with infection: Status: Acute Assessment and plan: She has been afebrile and WBC is improving Continue IV antibiotics. She feels the dizziness is worse when she is gassy. It is difficult to explain the connection. I advised her this will hopefully improve as her condition improves. She did have a BM yesterday. Subjective Subjective Interval history since last seen: Patient resorts adequate pain control. She is tolerating PO. Her symptoms of nausea and poor appetite prior to surgery have improved. She still feels dizzy while in bed, a symptom that was present preop. Exam Narrative Exam Narrative: Alert Pupils equal, no focal deficits Abdomen soft. Drain site looks good, no cellulitis. Drain output serosanguinous. Objective Objective Clinical Data: Abnormal lab results 12/20/19 12/20/19 12/21/19 Range/Units 13:55 13:55 06:35 WBC (4.4-10.8) k/cumm Hgb (12.0-15.5) g/dL MCH (27.0-33.0) pg MCHC (32.0-36.0) g/dL RDW (11.7-14.6) % Plt Count (130-400) x1000/uL Absolute Neutrophils (1.2-6.7) k/cumm Absolute Lymphocytes (1.2-3.4) k/cumm Hemoglobin A1c (3.8-5.6) % Iron 27 L (50-170) ug/dL TIBC 172 L (250-450) ug/dL Ferritin 410 H (8-252) ng/mL C-Reactive Protein 15.92 H (0.0-0.3) mg/dL 12/21/19 12/21/19 Range/Units 06:35 06:35 WBC 14.76 H (4.4-10.8) k/cumm Hgb 11.5 L (12.0-15.5) g/dL MCH 26.3 L (27.0-33.0) pg MCHC 30.6 L (32.0-36.0) g/dL RDW 15.8 H (11.7-14.6) % Plt Count 578 H (130-400) x1000/uL Absolute Neutrophils 12.93 H (1.2-6.7) k/cumm Absolute Lymphocytes 1.18 L (1.2-3.4) k/cumm Hemoglobin A1c 6.9 H (3.8-5.6) % Iron (50-170) ug/dL TIBC (250-450) ug/dL Ferritin (8-252) ng/mL C-Reactive Protein (0.0-0.3) mg/dL Vital Signs Temperature 97.5 F L 12/21/19 07:15 Temperature Source Temporal Artery Scan 12/21/19 07:15 Pulse 62 12/21/19 08:50 Pulse Rhythm Regular 12/21/19 08:00 Respiratory Rate 17 12/21/19 07:15 Respiratory Effort 12/21/19 08:00 Respiratory Depth Normal 12/21/19 08:00 Respiratory Pattern Normal 12/21/19 08:00 Blood Pressure 125/75 12/21/19 08:50 Pulse Oximetry 92 L 12/21/19 08:40 Respiratory End-tidal CO2 36 12/20/19 16:43 Oxygen Delivery Method Nasal Cannula 12/21/19 08:40 Oxygen Flow Rate 1 12/21/19 08:40 Pain Level 0 12/21/19 07:15 Comment 12/21/19 08:50 Intake & Output 12/20/19 12/21/19 12/21/19 23:59 11:59 23:59 Intake Total 840 / 840 1230.75 / 1230.75 Output Total 560 / 560 405 / 405 Balance 280 / 280 825.75 / 825.75 Weight 200 lb 2.876 oz Intake: IV 600 / 600 670.75 / 670.75 Oral 240 / 240 560 / 560 Injectate 0 / 0 Right Abdomen 0 / 0 Output: Drainage 60 / 60 55 / 55 Right Abdomen 60 / 60 55 / 55 Urine 500 / 500 350 / 350 Other: Urine Color Pale Yellow Urine Appearance Clear Urine Odor Normal Comment VOID X 1 DURING NOC PER PT Voiding Methods Bedside Commode Bedside Commode Laboratory Results WBC 14.76 k/cumm (4.4-10.8) H 12/21/19 06:35 RBC 4.37 m/cumm (4.00-5.20) 12/21/19 06:35 Hgb 11.5 g/dL (12.0-15.5) L 12/21/19 06:35 Hct 37.6 % (36.0-46.0) 12/21/19 06:35 MCV 86.0 fL (80-95) 12/21/19 06:35 MCH 26.3 pg (27.0-33.0) L 12/21/19 06:35 MCHC 30.6 g/dL (32.0-36.0) L 12/21/19 06:35 RDW 15.8 % (11.7-14.6) H 12/21/19 06:35 Plt Count 578 x1000/uL (130-400) H 12/21/19 06:35 MPV 9.4 fL (8.0-11.0) 12/21/19 06:35 Immature Gran % 0.3 % 12/21/19 06:35 Neutrophils % 87.6 12/21/19 06:35 Lymphocytes % 8.0 12/21/19 06:35 Monocytes % 4.1 12/21/19 06:35 Eosinophils % 0.0 12/21/19 06:35 Basophils % 0.0 12/21/19 06:35 Absolute Neutrophils 12.93 k/cumm (1.2-6.7) H 12/21/19 06:35 Absolute Lymphocytes 1.18 k/cumm (1.2-3.4) L 12/21/19 06:35 Absolute Monocytes 0.61 k/cumm (0.11-0.7) 12/21/19 06:35 Absolute Eosinophils 0.00 k/cumm (0.0-0.7) 12/21/19 06:35 Absolute Basophils 0.00 k/cumm (0.0-0.2) 12/21/19 06:35 PT 10.7 sec (9.3-11.0) 12/20/19 13:55 INR 1.1 (0.9-1.1) 12/20/19 13:55 Hemoglobin A1c 6.9 % (3.8-5.6) H 12/21/19 06:35 Iron 27 ug/dL (50-170) L 12/20/19 13:55 TIBC 172 ug/dL (250-450) L 12/20/19 13:55 Transferrin % Sat 16 % (15-50) 12/20/19 13:55 Ferritin 410 ng/mL (8-252) H 12/20/19 13:55 C-Reactive Protein 15.92 mg/dL (0.0-0.3) H 12/21/19 06:35 COVID-19 PCR Cancelled 12/20/19 17:13 Nasopharyn COVID-19 PCR Cancelled 12/20/19 17:13 Ref Test Perform Site Cancelled 12/20/19 17:13
--- NOTE | 2019-12-21 14:23 | CHAPLAIN ---
Heavenly was resting in bed when I visited. She said she's been feeling dizzy and that worries her. She said she was home for two weeks not feeling well before coming in. She hopes to rest today. Heavenly regularly attended [facility] but hasn't been in 20 years or so since her son and she did not feel supported by the rastafari at that time. We talked about her son and his medical issues, his struggles and success. Heavenly said he from drugs but had been clean for five years prior to getting involved with drugs again.
--- NOTE | 2019-12-21 14:50 | PTTR_ITS ---
Date of service: 12/21/19 Time of Service: 14:50 PT Notes Visit Reasons: INFECTED ABDOMINAL WALL HEMATOMA Inpatient Physical Therapy Treatment Note [facility] Date: 12/21/2019 PRECAUTIONS: Fall. Standard. Activity as tolerated. SUBJECTIVE: Heavenly reports worsening dizziness that comes and goes which prevents her from safely moving in and out of bed. She reports that she had had dizzy spells prior to the surgery and had been taking a pill that Dr. Saha prescribed to her that worked. Heavenly states that somebody from surgery came in earlier today who she made aware about said medication. She refuses to do any exercises nor walk and would like to wait until after the dizziness is resolved. When asked by this PT if she had a diagnosis of vertigo before, she said she did not. Bed Mobility/Transfers: Sit to supine minimal assist with HOB at 30 degrees, patient complains of burning sensation over surgical incision Sit to stand contact-guard assist using BUE for support with front wheeled wa lker Stand to sit contact-guard assist using BUE for support with front wheeled walker Bed to chair contact-guard assist using BUE for support with front wheeled walker Chair to bed contact-guard assist using BUE for support with front wheeled walker Gait: Patient was able to tolerate short distance ambulation to transfer from bedside commode to edge of bed about 8 steps using front wheeled walker with full weight bearing requiring only contact-guard assist by PT. Reported dizziness during the whole activity and while lying down in bed. THERA EX: Refused any further activities today but is hoping to be able to participate more tomorrow with resolution of her dizziness. Assessment: Patient complains of increasing dizziness with or without movement. Will continue to monitor and identify cause. May need to perform testing tomorrow for vertigo in consultation with surgeon. Nurse Norris was made aware of patient complaint. Plan of Care/Treatment Plan: 1-2x/day, 7 days/week x 1 week. Continue with Physical Therapy intervention for strengthening, bed mobility, transfers, gait, stairs, balance training, and of use of assistive device. DISCHARGE RECOMMENDATIONS: Patient will benefit from home health PT services in order to progress mobility level using least restrictive assistive ambulatory device, assess home safety, identify additional equipment needs, and establish a functional maintenance program that will increase ability of patient to remain at home. TREATMENT CODE/TIME: 40051 x 15 minutes beginning at 14:50 PM.
[2019-12-21] MEDS: Meclizine 12.5 MG TAB PO (16:58)
[2019-12-21] MEDS: Normal Saline Flush 10 ML SYR IVP (18:20)
[2019-12-22] MEDS: Normal Saline Flush 10 ML SYR IVP ×2 (02:17→15:42)
[2019-12-22] MEDS: Meclizine 12.5 MG TAB PO ×3 (02:50→20:33)
[2019-12-22 03:21] VITALS: O2SAT 94
[2019-12-22 03:28] VITALS: BP 140/80; PULSE 62; RESP 19; TEMP 36.8; O2SAT 94
[2019-12-22 07:19] LABS: Abs Immature Grans 0.09 k/cumm (0.0-0.09); Absolute Basophil Count 0.03 k/cumm (0.0-0.2); Absolute Eosinophil Count 0.36 k/cumm (0.0-0.7); Absolute Lymphocyte Count 2.42 k/cumm (1.2-3.4); Absolute Monocyte Count 1.74 k/cumm (0.11-0.7); Basophils % 0.2; Eosinophils % 2.3; HCT 38.4 % (36.0-46.0); HGB 11.4 g/dL (12.0-15.5); Immature Grans % 0.6 %; Lymphocytes % 15.3; Mean Corp. HGB Concentration 29.7 g/dL (32.0-36.0); Mean Corpuscular Hemoglobin 25.9 pg (27.0-33.0); Mean Corpuscular Volume 87.1 fL (80-95); Mean Platelet Volume 10.2 fL (8.0-11.0); Neutrophils % 70.6; Platelet Count 439 x1000/uL (130-400); RBC 4.41 m/cumm (4.00-5.20); RBC Distribution Width 15.9 % (11.7-14.6); White Blood Cell Count 15.82 k/cumm (4.4-10.8)
[2019-12-22 07:25] VITALS: BP 113/70; PULSE 68; RESP 19; TEMP 35.1; O2SAT 95
[2019-12-22 07:25] LABS: Absolute Neutrophil Count 11.17 k/cumm (1.2-6.7)
[2019-12-22 07:35] LABS: Diff Comment Diff Reviewed; Polychromasia Present
[2019-12-22] MEDS: Metoprolol 25 MG TAB PO ×2 (09:19→20:33)
[2019-12-22] MEDS: Amoxicillin 875/Clav. 125 TAB PO (09:19)
--- NOTE | 2019-12-22 11:24 | W.PM.PROGNOT ---
Date of Service Date of service: 12/22/19 Time of Service: 11:25 Assessment and Plan Assessment and plan (1) Traumatic hematoma of abdominal wall with infection: Status: Acute Assessment and plan: cont IV abx- until WBC and CRP or closer to nl/trending down. WBC is back up today cont CHET's will need these in for at least a week she will home RN. per PT 's notes she will need home PT. currently she can't walk b/c she is so dizzy. also c/o her feet on numb. (2) Essential hypertension: Status: Acute (3) Diverticulitis: Status: Acute (4) Dizziness of unknown etiology: Status: Acute Assessment and plan: pt says she can't eat or walk b/c she is so dizzy -EKG was relatively nl -will put her on tele cont antivert- pt says this does help -will have hosp see for any further rec. consider head CT (5) Elevated hemoglobin A1c: Status: Acute Assessment and plan: will have hosp eval if she require starting on an agent or if just diet and exercise at this point -slao c/o numb feet. DM vs PADvs anxiety Subjective Subjective Interval history since last seen: Pt is doing well. no headaches. No CP or SOB. no productive cough. no dysuria. no leg pain or swelling. She c/o of numb feet. She says she is so dizzy she can't walk and it is making her nausated. She is very week and did not do well w/ PT yesterday. Today she is refusing PT. Her A1c did come back at 6.9. Given the size and severity of her infection- she should probably start on some glycemic control medications- I will consult hosps for this as well as her vertigo. She is still running a 16 WBC and CRP is 15- although this is improved. She had a BM today. It was not diarrhea and no thrush. her incision site is c/d/i. minimal pain. The drains are mostly serous. She will need home care for PT- definitely, and prob for her drain care. She lost IV access during the night and was transitioned over to PO's. Her WBC is still 15. Her cultures were technically sterile- but given the size and the amount of material- I am not comfortable putting her on orals at this time. Will have RN's place a midline for access. Pt was a 2 person transfer to go from bed to chair. She says she is too dizzy to walk. Exam Const General: healthy appearing, comfortable, no acute distress, well developed and anxious Nutritional Appearance: obese Orientation: alert, awake and oriented x3 Eyes General: appearance normal, both eyes and all related structures Conjunctivae: conjunctivae normal Sclera: sclerae normal Resp Effort & Inspection: normal respiratory effort and able to speak in complete sentences Auscultation: clear to auscultation bilaterally Cardio Jugular venous pressure: no JVD Rate: regular rate GI Inspection: incision and obesity Auscultation: normal bowel sounds Other: incisions c/d/i serous from CHET Skin Other: no breakdown Extrem Other: chronic OA no acute change. no pain or swelling in LE Objective Objective Clinical Data: Abnormal lab results 12/22/19 Range/Units 06:45 WBC 15.82 H (4.4-10.8) k/cumm Hgb 11.4 L (12.0-15.5) g/dL MCH 25.9 L (27.0-33.0) pg MCHC 29.7 L (32.0-36.0) g/dL RDW 15.9 H (11.7-14.6) % Plt Count 439 H (130-400) x1000/uL Absolute Neutrophils 11.17 H (1.2-6.7) k/cumm Absolute Monocytes 1.74 H (0.11-0.7) k/cumm Vital Signs Temperature 35.1 C L 12/22/19 07:25 Temperature Source Tympanic 12/22/19 07:25 Pulse 68 12/22/19 07:25 Pulse Rhythm Regular 12/22/19 09:30 Respiratory Rate 19 12/22/19 07:25 Respiratory Effort Non-Labored 12/22/19 09:30 Respiratory Depth Normal 12/22/19 09:30 Respiratory Pattern Normal 12/22/19 09:30 Blood Pressure 113/70 12/22/19 07:25 Pulse Oximetry 95 12/22/19 07:25 Respiratory End-tidal CO2 36 12/20/19 16:43 Oxygen Delivery Method Nasal Cannula 12/22/19 07:25 Oxygen Flow Rate 1 12/22/19 07:25 Pain Level 0 12/22/19 07:25 Comment 12/21/19 20:05 Intake & Output 12/21/19 12/21/19 12/22/19 11:59 23:59 11:59 Intake Total 1280.75 / 2286.25 1005.5 / 2286.25 Output Total 405 / 435 30 / 435 570 / 570 Balance 875.75 / 1851.25 975.5 / 1851.25 -570 / -570 Intake: IV 720.75 / 1246.25 525.5 / 1246.25 Oral 560 / 1040 480 / 1040 Injectate 0 / 0 Right Abdomen 0 / 0 Output: Drainage 55 / 85 30 / 85 Right Abdomen 55 / 85 30 / Urine 350 / 350 550 / 550 Other: Urine Color Yellow Urine Appearance Clear Urine Odor Normal Comment VOID X 1 DURING NOC PER PT Stool Size Moderate Stool Characteristics Soft Liquid Brown Voiding Methods Bedside Commode Bedside Commode Laboratory Results WBC 15.82 k/cumm (4.4-10.8) H 12/22/19 06:45 RBC 4.41 m/cumm (4.00-5.20) 12/22/19 06:45 Hgb 11.4 g/dL (12.0-15.5) L 12/22/19 06:45 Hct 38.4 % (36.0-46.0) 12/22/19 06:45 MCV 87.1 fL (80-95) 12/22/19 06:45 MCH 25.9 pg (27.0-33.0) L 12/22/19 06:45 MCHC 29.7 g/dL (32.0-36.0) L 12/22/19 06:45 RDW 15.9 % (11.7-14.6) H 12/22/19 06:45 Plt Count 439 x1000/uL (130-400) H 12/22/19 06:45 MPV 10.2 fL (8.0-11.0) 12/22/19 06:45 Immature Gran % 0.6 % 12/22/19 06:45 Neutrophils % 70.6 12/22/19 06:45 Lymphocytes % 15.3 12/22/19 06:45 Monocytes % 11.0 12/22/19 06:45 Eosinophils % 2.3 12/22/19 06:45 Basophils % 0.2 12/22/19 06:45 Absolute Neutrophils 11.17 k/cumm (1.2-6.7) H 12/22/19 06:45 Absolute Lymphocytes 2.42 k/cumm (1.2-3.4) 12/22/19 06:45 Absolute Monocytes 1.74 k/cumm (0.11-0.7) H 12/22/19 06:45 Absolute Eosinophils 0.36 k/cumm (0.0-0.7) 12/22/19 06:45 Absolute Basophils 0.03 k/cumm (0.0-0.2) 12/22/19 06:45 Differential Comment Diff reviewed 12/22/19 06:45 RBC Morphology See below 12/22/19 06:45 Polychromasia Present 12/22/19 06:45 PT 10.7 sec (9.3-11.0) 12/20/19 13:55 INR 1.1 (0.9-1.1) 12/20/19 13:55 Hemoglobin A1c 6.9 % (3.8-5.6) H 12/21/19 06:35 Iron 27 ug/dL (50-170) L 12/20/19 13:55 TIBC 172 ug/dL (250-450) L 12/20/19 13:55 Transferrin % Sat 16 % (15-50) 12/20/19 13:55 Ferritin 410 ng/mL (8-252) H 12/20/19 13:55 C-Reactive Protein 15.92 mg/dL (0.0-0.3) H 12/21/19 06:35 COVID-19 PCR Cancelled 12/20/19 17:13 Nasopharyn COVID-19 PCR Cancelled 12/20/19 17:13 Ref Test Perform Site Cancelled 12/20/19 17:13
[2019-12-22] MEDS: Acetaminophen 325 MG TAB 650 MG PO (12:40)
--- NOTE | 2019-12-22 13:00 | W.NUTRFU ---
Date of service: 12/22/19 Time of Service: 13:00 Nutritional Follow up NOTE: 79 year old female admitted for traumatic hematoma of abdomenal wall. S/p surgery 12/20/19. Following soft bland diet with adequate intake. BMI indicates morbid obesity. Recent A1C indicates mildly elevated blood sugars, no dx of DM. Not at risk for nutritional decline at this time. Time Spent in Nutritional Counseling and Treatment: 0
--- NOTE | 2019-12-22 14:08 | PT.INNT ---
Date of service: 12/22/19 Time of Service: 14:08 PT Notes Visit Reasons: INFECTED ABDOMINAL WALL HEMATOMA Patient refused to doing anything today twice due to exacerbation of dizziness with any movement and positional changes. Testing for [place]-Hallpike to determine cause of persistent dizziness was offered to patient twice, explaining the procedure and how a corrective maneuver may help with her symptoms. Patient did not want any part of her head hanging down and demanded for her Meclizine instead. She stressed that she does not want to suffer any further and wanted quick relief. It was explained to the patient and to the nurse as well as to the nurse broadcast supervisor that pre administration of dizziness medication may negatively impact accuracy of both vertigo testing and procedure. Patient was insistent about her declination of said testing despite sufficient explanation that a modified test can be done to achieve same result. Will plan on seeing patient for her BID treatments tomorrow as scheduled.
--- NOTE | 2019-12-22 14:42 | PHA.REVIEW ---
Pharmacy Admission Review - Admission Clinical Review (Last Updated 12/22/19 @ 13:24 by Radha Cartwright DO) Elevated hemoglobin A1c (Acute) Dizziness of unknown etiology (Acute) Traumatic hematoma of abdominal wall with infection (Acute) Essential hypertension (Acute 04/04/12) Diverticulitis (Acute) Nausea (Acute) Abdominal wall hematoma (Acute) Other elevated white blood cell count (Acute) Abdominal wall bulge (Acute) Uncomplicated asthma (Acute 04/04/12) Transient cerebral ischemia (Acute 06/22/16) Palpitations (Acute 12/13/17) History of tobacco use (Acute) Chronic obstructive pulmonary disease (Acute) Hiatal hernia (Acute) codeine Adverse Reaction (Severe, Unverified 12/20/19 10:03) GI UPSET omeprazole Adverse Reaction (Unverified 12/20/19 10:03) Edward Adverse Reaction (Severe, Uncoded 12/20/19 10:03) Nausea Height 4 ft 11 in Weight 90.8 kg - Renal Dosing Medications needing adjustments: Reviewed (crcl ~40ml/min) - Anticoagulation Anticoagulation: Hgb 11.4 g/dL (12.0-15.5) L 12/22/19 06:45 Hct 38.4 % (36.0-46.0) 12/22/19 06:45 Plt Count 439 x1000/uL (130-400) H 12/22/19 06:45 INR 1.1 (0.9-1.1) 12/20/19 13:55 DVT Prohphylaxis: N/A (surgery yesterday) - Opiate Usage Scheduled Bowel Reg ordered if on Opiates?: Yes - Relevant Labs C-Reactive Protein 15.92 mg/dL (0.0-0.3) H 12/21/19 06:35 Electrolytes, C-Reactive P, ESR: Reviewed - DM Control DM Control: Hemoglobin A1c 6.9 % (3.8-5.6) H 12/21/19 06:35 Finger Stick Blood Glucose 106 Insulin Dosing: N/A (fs 106 A1c 6.9 med consult ordered) - BP Control BP Control: Blood Pressure 113/70 Blood Pressure 140/80 If elevated: Reviewed - Qtc Review If Elevated: Reviewed (378) - IV to PO Switch IV Medications: Reviewed (IV abx switched to PO when IV was lost yesterday but provider switched back to IV today) - Home Meds Home Med List reviewed: Reviewed Relevent Home Meds Not ordered & why?: prochlorperazine not ordered, trying meclizine as inpt - Current meds Current Medication Order Review: Reviewed - Comments Comments/Follow Ups: surgical culture no growth 48 hours
--- NOTE | 2019-12-22 15:06 | DI.CT_ITS ---
EXAM: CT HEAD WO CLINICAL HISTORY: dizzy/can't walk. TECHNIQUE: Imaging Protocol: Axial computed tomography images with coronal and sagittal reformatted images were created and reviewed COMPARISON: CT HEAD WITHOUT STROKE PROTOCOL from 06/20/2016 FINDINGS: Ventricles and Extra axial spaces: Normal in size and morphology for the patient's age. Hemorrhage: None. Cerebral parenchyma: Mild atrophy consistent with the patient's age. Mild white matter changes like ly reflecting small vessel disease. Midline shift: None. Brainstem/Cerebellum: Normal. Empty sella, unchanged from the previous exam. Stable mild sellar enlargement. Calvarium: No fracture. Hyperostosis frontalis interna. Visualized Paranasal sinuses/Mastoids: Clear. Soft Tissues: Unremarkable. Orbits unremarkable. IMPRESSION: No acute intracranial process. RADIATION DOSE DELIVERED: Total DLP DATA REPOSITORY: All CT scans at this facility are submitted to the National Radiology Data Registry (NRDR) Dose Index Registry (DIR) with the [employer] (ACR). RADIATION OPTIMIZATION: All CT scans at this facility use at least one of these dose optimization te chniques: automated exposure control; mA and/or kV adjustment per patient size (includes targeted exa ms where dose is matched to clinical indication); or iterative reconstruction.
[2019-12-22] MEDS: cefTRIAXone 2 GM/50 ML BAG IVPB (15:37)
--- NOTE | 2019-12-22 16:54 | PDOC.CMPRO ---
- If Service Date Differs Date of service: 12/22/19 Time of Service: 16:54 Care Management Progress Note S/O: Heavenly was lying in bed when CM met with her. She stated that she is not feeling well today, and that she is very dizzy. CM asked if she has been working with PT during this admission, which she stated that she did not work with them today because she was too dizzy. Per provider, HH RN and PT have been recommended. Heavenly stated that she has done outpt PT, and does not think she requires HH PT. She is agreeable to HH RN for the care of the CHET drains that are still in place. She stated that she does well at home, but she did not feel ready to return home today. CM will continue to follow. A: Radha is an 79 year old female admitted to [facility] on 12/20/19 with Abdominal Wall Hematoma. P: Heavenly will return home when medically cleared by provider. She will have new orders for HH RN, coordinated by CM. She may have out pt PT, if indicated. She will follow up with her surgeon, PCP and discharge plan of care. She will transport via private vehicle with family.CM will continue to support patient, family and discharge planning needs.
[2019-12-22 16:59] VITALS: BP 132/70; PULSE 66; RESP 18; TEMP 36.2; O2SAT 92
--- NOTE | 2019-12-22 17:41 | MCONE_ITS ---
Date of service: 12/22/19 Time of Service: 16:00 Assessment and Plan Assessment and plan (1) Vertigo: Status: Acute Assessment and plan: Patient symptoms are pretty typical for benign paroxysmal positional vertigo. However the patient is refusing to allow me to physical therapy to perform a Hallpike Amari maneuver. Furthermore she declines to participate in any vestibular exercises. Hopefully, Magaly will have better luck tomorrow. She indicated that she only wants to take the meclizine for her dizziness and does not want any exercises. She says that at 79 yr old she can not be doing any exercises. I have nothing further to add to her treatment or workup. She was very happy when I gave her the news that her CT of her head did not show any acute VARNISH BLENDER process such as a tumor or stroke. She was worried about having a brain tumor because a close friend recently from a brain tumor. I am recommending that she use Debrox and have her ear canals lavaged as she has occluded external ear canals from cerumen (2) New onset type 2 diabetes mellitus: Status: Acute Assessment and plan: Patient is adamant that she does not have diabetes and does not want to talk about this anymore. She told me that she called Dr. Saha up and was reassured that she does not have diabetes mellitus. Her A1c certainly falls within the diagnostic category of diabetes mellitus (i.e. >=6.5%) furthermore she had impaired fasting glucose when she was admitted w/ TIA symptoms in June 2016 When her A1c was 6.1%. As the patient is not willing to discuss this any further I have nothing to add to her treatment. I recommend she follow-up with Dr. Strong and discuss this further with him. I think that her diabetes could be well managed with diet and/or oral medications given that is taken 80 years for her to develop diabetes mellitus. (3) Excessive cerumen in both ear canals: Status: Acute Assessment and plan: Use Debrox and have her ear canals lavaged after using Debrox for a week. Follow-up with your PCP or ENT History of Present Illness History of Present Illness Chief Complaint: Medicine consult for dizziness and new onset diabetes Narrative: Mrs. Wills is an 79-year-old female with a past medical history of paroxysmal nonsustained SVT as well as a history of TIA in June 2016. She is a former smoker with [id number] history who quit in December 1988. Her work-up of her hospitalization 2015 included MRI of the brain carotid Dopplers echo CT scan of the brain. All of her work-up was negative. Has been suspected that she has COPD as she has a chronic cough. This diagnosis has been entertained by her PCP Dr. Linus Saha. She has had intermittent spells of dizziness for some time now and this is also been noted on her chart by her PCP. Her current hospitalization was precipitated by a fall that she had while carrying a safe c ouple months ago and she sustained a hematoma to her abdomen. This became infected and she was hospitalized by Dr. Cartwright for treatment of an infected hematoma. Patient underwent operative drainage on December 20, 2019. Her current discharge planning is being delayed because the patient has been experiencing vertiginous type dizziness. During her hospitalization she was found to have new onset diabetes mellitus as evidenced by an elevated A1c of 6.9% of note during her hospitalization in June 2016 she had an A1c of 6.1% indicative of impaired glucose tolerance. The present time she is not nauseated she is tolerating her diet. We do not have any fasting glucose levels during this hospitalization however her nonfasting glucose has not been terribly out of range. Couple days ago her glucose was 105 on the day prior to that it was 122. She has not had a glucose tolerance test but has a set her A1c which was checked yesterday was elevated 6.9%. As for her dizziness it seems to be vertiginous in nature. She can get it whenever she changes position either moving from lying to sitting or sitting to lying or if she rolls over in bed quickly. Is accompanied by nausea but extinguishes quickly over a few minutes. Her primary worry was that she may have a brain tumor like her friend who recently . She was grateful to hear that her CT scan of her head showed no acute intracranial process. When I talked with her about her diabetes she indicated that she was so upset that she was told that she had diabetes that she called her primary care provider Dr. Linus Saha and she says that he reassured her that she does not have diabetes mellitus. She wanted no further discussion about diabetes at this time. With respect to her vertiginous symptoms she denies any tinnitus but admits she has had some decreased hearing. I inspected her ear canals and found them to be full of cerumen. She denies any headaches with the vertigo. I talked her about performing a Hallpike [place] maneuver to confirm that this is BPPV however she declined to participate in such maneuver. I talked her about performing vestibular exercises that could be done with physical therapy and she indicated that she would not do such exercises. At this point I indicated to her that I have nothing further to offer to her care and recommend that she follow-up with Dr. Saha to discuss her elevated A1c. She did indicate to me that the meclizine does seem to help her vertigo. Review of Systems All systems reviewed & are unremarkable except as noted in HPI and below [facility] Medical History (Updated 12/22/19 @ 18:12 by Raul Elizalde) Abdominal wall hematoma (Acute) Allergy (Acute) COPD (chronic obstructive pulmonary disease) (Chronic) Diverticulitis (Resolved) Dizziness of unknown etiology (Acute) Elevated hemoglobin A1c (Acute) Essential hypertension (Acute 04/04/12) Fracture of proximal end of right humerus (Inactive 03/03/19) Hiatal hernia (Acute) History of PSVT (paroxysmal supraventricular tachycardia) (Acute) Malignant neoplasm of breast (female), unspecified site (Acute) LEFT BREAST (Note patient denies any history of breast cancer. She says she has had a spot on her left breast that is been there for 45 years and she declines to have any mammogram or work-up) Nausea (Resolved) Nausea (Acute) Other elevated white blood cell count (Acute) Phlegm in throat (Acute) TIA (transient ischemic attack) (Inactive) Traumatic hematoma of abdominal wall with infection (Acute) Surgical History Cholecystectomy (09/03/16) Social History Smoking/Tobacco Use Status: Former Tobacco Use Quit Date: 12/14/88 Alcohol Intake: never Drug use: Never Substance use type: does not use Current gender identity: female Do you feel safe at home: Yes Do you feel safe in your relationship?: Yes Exam Narrative Exam Narrative: Obese female lying in bed in semi-mcduffie position. She is alert and oriented. HEENT is remarkable for excess cerumen in both ear canals. Neck is supple no JVD normal carotid pulses. Lungs are clear to auscultation. Heart is regular rate and rhythm. Neuro exam she has no facial asymmetry no dysarthric speech she has full extraocular motion intact. Sensation is intact to light touch. I did not have a monofilament to do a proper diabetic foot exam. However she has not a sensate over her feet. Patient declined to participate in a Hallpike Amari maneuver. Given her recent abdominal wall surgery it would be difficult and uncomfortable to perform such a test. Nevertheless I think she could participate in vestibular exercises such as a modified [place] maneuver. Results Last Vital Signs Temp 36.2 C L 12/22/19 16:59 Pulse 66 12/22/19 16:59 Resp 18 12/22/19 16:59 BP 132/70 12/22/19 16:59 Pulse Ox 90 L 12/22/19 16:59 Labs Result diagrams: 12/22/19 06:45 Labs: Laboratory Results - last 24 hr 12/22/19 06:45 WBC 15.82 H RBC 4.41 Hgb 11.4 L Hct 38.4 MCV 87.1 MCH 25.9 L MCHC 29.7 L RDW 15.9 H Plt Count 439 H MPV 10.2 Immature Gran % 0.6 Neutrophils % 70.6 Lymphocytes % 15.3 Monocytes % 11.0 Eosinophils % 2.3 Basophils % 0.2 Absolute Neutrophils 11.17 H Absolute Lymphocytes 2.42 Absolute Monocytes 1.74 H Absolute Eosinophils 0.36 Absolute Basophils 0.03 Differential Comment Diff reviewed RBC Morphology See below Polychromasia Present
[2019-12-22] MEDS: Normal Saline Flush 10 ML SYR 20 ML IVP (20:33)
[2019-12-22] MEDS: Lactobacillus Acidophilus CAP 1 CAP PO (20:33)
[2019-12-22] MEDS: Sennosides/Docusate Sodium TAB 1 TAB PO (20:34)
[2019-12-22] MEDS: Carbamide Peroxide 15 ML BTL AU (20:56)
[2019-12-22 20:58] VITALS: BP 136/62; PULSE 79; RESP 18; TEMP 36.7; O2SAT 92
[2019-12-22 22:50] VITALS: BP 147/64; PULSE 73; RESP 17; TEMP 36.7; O2SAT 93
[2019-12-23] VITALS (10 sets, daily range): BP systolic 125–139; BP diastolic 71–79; PULSE 61–101; RESP 16–20; TEMP 36.3–37.1; O2SAT 89–95
[2019-12-23] MEDS: Acetaminophen 325 MG TAB 650 MG PO ×3 (00:41→20:53)
[2019-12-23 06:54] LABS: Abs Immature Grans 0.04 k/cumm (0.0-0.09); Absolute Basophil Count 0.02 k/cumm (0.0-0.2); Absolute Eosinophil Count 0.37 k/cumm (0.0-0.7); Absolute Lymphocyte Count 1.99 k/cumm (1.2-3.4); Absolute Monocyte Count 0.95 k/cumm (0.11-0.7); Basophils % 0.2; HCT 37.3 % (36.0-46.0); HGB 11.2 g/dL (12.0-15.5); Immature Grans % 0.3 %; Lymphocytes % 16.1; Mean Corpuscular Hemoglobin 26.1 pg (27.0-33.0); Mean Corpuscular Volume 86.9 fL (80-95); Mean Platelet Volume 9.4 fL (8.0-11.0); Monocytes % 7.7; Neutrophils % 72.7; Platelet Count 568 x1000/uL (130-400); RBC 4.29 m/cumm (4.00-5.20); RBC Distribution Width 15.9 % (11.7-14.6); White Blood Cell Count 12.39 k/cumm (4.4-10.8)
[2019-12-23 07:01] LABS: C-Reactive Protein 9.29 mg/dL (0.0-0.3)
[2019-12-23 07:05] LABS: Absolute Neutrophil Count 9.01 k/cumm (1.2-6.7)
[2019-12-23 07:18] LABS: Bilirubin Negative (Negative); Blood Trace-intact (Negative); Glucose Negative (Negative); Ketones Negative (Negative); Leukocyte Esterase Moderate (Negative); Nitrite Negative (Negative); Specific Gravity >= 1.030 (1.005-1.025); Urobilinogen 0.2 EU/dL (Up TO 0.2); pH 5.5 (5-8)
[2019-12-23 07:19] LABS: Clarity Cloudy (Clear)
[2019-12-23 07:32] LABS: Bacteria Moderate HPF (Negative); Casts Negative LPF (Negative); Crystals Negative HPF (Negative); Epithelial Cells Many HPF (Negative); Mucus Negative (Negative); Other Cells Few Renal (Negative); WBC >50 HPF (0-5)
[2019-12-23 07:33] LABS: C & S Indicated? No/Sq. Contamination
[2019-12-23] MEDS: Normal Saline Flush 10 ML SYR 20 ML IVP ×2 (07:41→20:30)
[2019-12-23] MEDS: Carbamide Peroxide 15 ML BTL AU ×2 (07:41→20:30)
[2019-12-23] MEDS: Lactobacillus Acidophilus CAP 1 CAP PO ×2 (07:42→20:31)
[2019-12-23] MEDS: Meclizine 12.5 MG TAB PO ×3 (07:42→20:31)
[2019-12-23] MEDS: Metoprolol 25 MG TAB PO ×2 (07:42→20:30)
[2019-12-23] MEDS: Sennosides/Docusate Sodium TAB 1 TAB PO ×2 (07:42→20:30)
--- NOTE | 2019-12-23 12:27 | CMPROGNOTE_ITS ---
- If Service Date Differs Date of service: 12/23/19 Time of Service: 12:27 Care Management Progress Note S/O: Heavenly was reviewed at interdisciplinary rounds, and CM also discussed the case with Dr. Cartwright. Per MD, she will remain here overnight for IV abx. Once she returns home, she will recommend HH RN, PT. Heavenly is now agreeable to both services. CM will continue to follow. A: Radha is an 79 year old female admitted to [facility] on 12/20/19 with Abdominal Wall Hematoma. P: Heavenly will return home when medically cleared by provider. She will have new orders for HH RN, coordinated by CM. She may have out pt PT, if indicated. She will follow up with her surgeon, PCP and discharge plan of care. She will transport via private vehicle with family.CM will continue to support patient, family and discharge planning needs.
--- NOTE | 2019-12-23 13:04 | PGE_ITS ---
Date of Service Date of service: 12/23/19 Time of Service: 13:04 Assessment and Plan Assessment and plan (1) Excessive cerumen in both ear canals: Status: Acute (2) Hiatal hernia: Status: Acute (3) New onset type 2 diabetes mellitus: Status: Acute Assessment and plan: Patient refuses to acknowledge that she is diabetic. We will keep her on a diabetic diet while she is in the hospital and monitor her blood sugars. It is low-grade in nature at this point. She trusts Dr. Saha and allow him to dress as outpatient. Patient will not acknowledge at this time. (4) Vertigo: Status: Acute (5) Elevated hemoglobin A1c: Status: Acute (6) Traumatic hematoma of abdominal wall with infection: Status: Acute Assessment and plan: serous only. will go home w/ CHET's in place. adn require assistance. She will defn require home PT adn will arrange this as well as home RN. cont IV abx - wbc is still elevated. (7) History of tobacco use: Status: Acute (8) Chronic obstructive pulmonary disease: Status: Acute Assessment and plan: Patient refuses to wear oxygen (9) Weakness of both lower extremities: Status: Acute Assessment and plan: Patient abscess has actually been going on for some time. She is not been eating and has developed iron deficiency anemia as well as protein calorie malnutrition. She was not walking at home because she was in pain and not feeling well. She has become very deconditioned and can barely walk to go to the bathroom. She is also suffering from some vertigo. She has severely impacted cerumen in her ears which may be contributing to this as well. Her head CT was negative. She has become very weak and unsteady on her feet. She had a fall last year that resulted in a shoulder fracture. She is amendable/ to agreeing to physical therapy at home. She has 13 steps she has to climb to get into her house. She is going to need nursing care to help her care for the CHET drains at home. She is adamant that she is going home and refuses to go to rehab. (10) Anemia, iron deficiency, inadequate dietary intake: Status: Acute Assessment and plan: This should improve now that patient is able to eat. Her appetite is better and she is eating well in the hospital. Her bowels are regular. She is pretty iron deficient and will give a dose of IV Venofer. (11) Protein-calorie malnutrition, moderate: Status: Acute Assessment and plan: We will try protein diabetic protein shakes to help modify this. Patient is eating much better now that the abscess has been drained. She has no diarrhea no signs of thrush. (12) UTI (urinary tract infection): Status: Acute Assessment and plan: On admission. This is resolved with current antibiotic regimen that she is on. Subjective Subjective Interval history since last seen: Pt is doing well. no headaches. No CP or SOB. no productive cough. no dysuria. no leg pain or swelling. the atarax is helping w/ her dizziness. She is feeling better adn is up walking w/PT today. She is more receptive to PT today. She is not willing to except the DM Dg or wear O2. She admits that she has been feeling poorly for several weeks and has not been eating or walking. She is very week. SHe has also been dizzy- which is also contributes to her non walking. SHe is quite week and debilitated. Per PT rec- she would really benefit from home PT- and she is amendable to this. She had a fall this winter that resulted in shoulder replacement. She also has not been eating well- which I think accounts for the anemia adn low protein . She has been eating well and having regular BM in the hospital Exam Neck Neck: no JVD Chest Chest: normal inspection of the chest Resp Effort & Inspection: normal respiratory effort and able to speak in complete sentences Auscultation: clear to auscultation bilaterally Cardio Jugular venous pressure: no JVD Rate: regular rate Rhythm: regular rhythm GI Inspection: normal to inspection Palpation: soft Auscultation: normal bowel sounds Other: drain sites are serous. outputs are not well recorded. pockets seems to be decreasing in size. Skin General skin exam: no rashes or lesions noted Extrem General: no clubbing, cyanosis or edema Objective Objective Clinical Data: Abnormal lab results 12/23/19 12/23/19 12/23/19 Range/Units 06:18 06:25 06:25 WBC 12.39 H (4.4-10.8) k/cumm Hgb 11.2 L (12.0-15.5) g/dL MCH 26.1 L (27.0-33.0) pg MCHC 30.0 L (32.0-36.0) g/dL RDW 15.9 H (11.7-14.6) % Plt Count 568 H (130-400) x1000/uL Absolute Neutrophils 9.01 H (1.2-6.7) k/cumm Absolute Monocytes 0.95 H (0.11-0.7) k/cumm C-Reactive Protein 9.29 H (0.0-0.3) mg/dL Ur Specific [place] >= 1.030 H (1.005-1.025) Urine Blood Trace-intact H (Negative) Ur Leukocyte Esterase Moderate H (Negative) Urine RBC 5-10 H (0-2) HPF Urine WBC >50 H (0-5) HPF Vital Signs Temperature 36.4 C L 12/23/19 07:30 Temperature Source Tympanic 12/23/19 07:30 Pulse 78 12/23/19 07:30 Pulse Rhythm Regular 12/23/19 08:58 Respiratory Rate 18 12/23/19 11:45 Respiratory Effort Non-Labored 12/23/19 08:58 Respiratory Depth Normal 12/23/19 08:58 Respiratory Pattern Normal 12/23/19 08:58 Blood Pressure 139/79 12/23/19 07:30 Pulse Oximetry 90 L 12/23/19 11:45 Respiratory End-tidal CO2 36 12/20/19 16:43 Oxygen Delivery Method Room Air 12/23/19 11:45 Oxygen Flow Rate 0 12/23/19 11:45 Pain Level 5 12/23/19 12:57 Comment 12/21/19 20:05 Intake & Output 12/22/19 12/23/19 12/23/19 23:59 11:59 23:59 Intake Total 490 / 490 190 / 430 240 / 430 Output Total 260 / 830 115 / 115 Balance 230 / -340 75 / 315 240 / 315 Intake: IV 40 / 40 Oral 490 / 490 150 / 390 240 / 390 Output: Drainage 60 / 80 15 / 15 Right Abdomen 60 / 80 15 / 15 Urine 200 / 750 100 / 100 Other: Urine Color Yellow Yellow Urine Appearance Clear Clear Urine Odor Foul Normal Comment mixed with stool Stool Size Moderate Moderate Stool Characteristics Soft Soft Brown Brown Voiding Methods Bedside Commode Bedside Commode Laboratory Results WBC 12.39 k/cumm (4.4-10.8) H 12/23/19 06:25 RBC 4.29 m/cumm (4.00-5.20) 12/23/19 06:25 Hgb 11.2 g/dL (12.0-15.5) L 12/23/19 06:25 Hct 37.3 % (36.0-46.0) 12/23/19 06:25 MCV 86.9 fL (80-95) 12/23/19 06:25 MCH 26.1 pg (27.0-33.0) L 12/23/19 06:25 MCHC 30.0 g/dL (32.0-36.0) L 12/23/19 06:25 RDW 15.9 % (11.7-14.6) H 12/23/19 06:25 Plt Count 568 x1000/uL (130-400) H 12/23/19 06:25 MPV 9.4 fL (8.0-11.0) 12/23/19 06:25 Immature Gran % 0.3 % 12/23/19 06:25 Neutrophils % 72.7 12/23/19 06:25 Lymphocytes % 16.1 12/23/19 06:25 Monocytes % 7.7 12/23/19 06:25 Eosinophils % 3.0 12/23/19 06:25 Basophils % 0.2 12/23/19 06:25 Absolute Neutrophils 9.01 k/cumm (1.2-6.7) H 12/23/19 06:25 Absolute Lymphocytes 1.99 k/cumm (1.2-3.4) 12/23/19 06:25 Absolute Monocytes 0.95 k/cumm (0.11-0.7) H 12/23/19 06:25 Absolute Eosinophils 0.37 k/cumm (0.0-0.7) 12/23/19 06:25 Absolute Basophils 0.02 k/cumm (0.0-0.2) 12/23/19 06:25 Differential Comment Diff reviewed 12/22/19 06:45 RBC Morphology See below 12/22/19 06:45 Polychromasia Present 12/22/19 06:45 PT 10.7 sec (9.3-11.0) 12/20/19 13:55 INR 1.1 (0.9-1.1) 12/20/19 13:55 Hemoglobin A1c 6.9 % (3.8-5.6) H 12/21/19 06:35 Iron 27 ug/dL (50-170) L 12/20/19 13:55 TIBC 172 ug/dL (250-450) L 12/20/19 13:55 Transferrin % Sat 16 % (15-50) 12/20/19 13:55 Ferritin 410 ng/mL (8-252) H 12/20/19 13:55 C-Reactive Protein 9.29 mg/dL (0.0-0.3) H 12/23/19 06:25 Urine Color Yellow (Yellow) 12/23/19 06:18 Urine Clarity Cloudy (Clear) 12/23/19 06:18 Urine pH 5.5 (5-8) 12/23/19 06:18 Ur Specific [place] >= 1.030 (1.005-1.025) H 12/23/19 06:18 Urine Protein Negative mg/dL (Negative) 12/23/19 06:18 Urine Ketones Negative mg/dL (Negative) 12/23/19 06:18 Urine Blood Trace-intact (Negative) H 12/23/19 06:18 Urine Nitrite Negative (Negative) 12/23/19 06:18 Urine Bilirubin Negative (Negative) 12/23/19 06:18 Urine Urobilinogen 0.2 EU/dL (Up TO 0.2) 12/23/19 06:18 Ur Leukocyte Esterase Moderate (Negative) H 12/23/19 06:18 Urine RBC 5-10 HPF (0-2) H 12/23/19 06:18 Urine WBC >50 HPF (0-5) H 12/23/19 06:18 Ur Epithelial Cells Many HPF (Negative) 12/23/19 06:18 Urine Crystals Negative HPF (Negative) 12/23/19 06:18 Urine Bacteria Moderate HPF (Negative) 12/23/19 06:18 Urine Casts Negative LPF (Negative) 12/23/19 06:18 Urine Mucus Negative (Negative) 12/23/19 06:18 Urine Other Few renal (Negative) 12/23/19 06:18 Ur Culture Indicated? No/sq. contamination 12/23/19 06:18 Urine Glucose Negative mg/dL (Negative) 12/23/19 06:18 COVID-19 PCR Cancelled 12/20/19 17:13 Yesika COVID-19 PCR Cancelled 12/20/19 17:13 Ref Test Perform Site Cancelled 12/20/19 17:13
[2019-12-23] MEDS: cefTRIAXone 2 GM/50 ML BAG IVPB (13:44)
[2019-12-23] MEDS: IRON SUCROSE COMPLEX 200 MG in Normal Saline 100 ML 400 MG IVPB (14:41)
--- NOTE | 2019-12-23 15:53 | PT.INTREAT ---
Date of service: 12/23/19 Time of Service: 15:25 PT Notes Visit Reasons: INFECTED ABDOMINAL WALL HEMATOMA Inpatient Physical Therapy Treatment Note [facility] Date: 12/23/2019 PRECAUTIONS: Fall. Standard. Activity as tolerated. SUBJECTIVE: Patient reports significantly reduced dizziness today and was agreeable to PT sessions. She states that per her nurse, she does not need her oxygen anymore as she has been doing good with her oxygen level. She continues to complain of soreness and tenderness over surgical incision and refused the use of gait belt for ambulation activities. She denies any chest pain and headache throughout sessions. Later in the afternoon, patient got concerned about the timing of her her anti-dizziness medication intake which was brought up with the nurse and got immediately resolved. Heavenly also reported that the dizziness may be caused by her newly detected anemia per her doctor. She does not see the need for testing for vertigo now that her dizziness seems to have almost resolved. OBJECTIVE: CHET drains in place. IV in right ureter. Surgical dressing over incision. PAIN: Discomfort and tenderness over surgical incision. BED MOBILITY/TRANSFERS Sit-supine: Minimal assist to both legs Sit-stand: Standby assist using BUEs for support Stand-sit: Standby assist using BUEs for support Bed-Chair: Standby assist using BUEs for support Chair-bed: Standby assist using BUEs for support GAIT Assistive Device: Front wheeled walker Weight bearing: Full weightbearing Assist: Standby assist Distance: 75 feet in the morning and 90 feet in the afternoon session Deviation: Farhana beginning to improve. Reciprocal step to gait pattern. Patient reports legs being weak and arms shaking the morning. Wheelchair follow needed for both sessions per patient request. THERA EX: Patient tolerated ankle dorsiflexion x10, plantarflexion x10, long arc quads x10, seated clamshell exercises x10, and seated hip flexion x10 with 3-5 times of pursed lip breathing after each exercises with good response. ASSESSMENT: Thai's participation level has significantly improved with almost complete resolution of her dizziness. She continues to remain lacking in confidence about her ability to go farther with her ambulation distance. She denies any shortness of breath throughout both ambulation activities. She did not demonstrate any loss of balance. She will continue to benefit from continued skilled services in anticipation of return to home with . PLAN: Continue with PT POC with focus on regaining prior level of function using front wheeled walker. TREATMENT CODE/TIME: Session 1??71188 x 30 minutes, 90297 x 12 minutes, beginning at 9:01 AM. Session 2??09571 x 30 minutes beginning at 15:25 PM.
[2019-12-24] VITALS (7 sets, daily range): BP systolic 102–139; BP diastolic 49–76; PULSE 64–85; RESP 18–19; TEMP 36.1–36.7; O2SAT 90–97
[2019-12-24] MEDS: Normal Saline Flush 10 ML SYR IVP (06:41)
[2019-12-24 06:49] LABS: Abs Immature Grans 0.13 k/cumm (0.0-0.09); Absolute Basophil Count 0.03 k/cumm (0.0-0.2); Absolute Eosinophil Count 0.35 k/cumm (0.0-0.7); Absolute Lymphocyte Count 1.88 k/cumm (1.2-3.4); Absolute Monocyte Count 1.07 k/cumm (0.11-0.7); Absolute Neutrophil Count 9.41 k/cumm (1.2-6.7); Basophils % 0.2; Eosinophils % 2.7; HCT 39.1 % (36.0-46.0); HGB 11.7 g/dL (12.0-15.5); Lymphocytes % 14.6; Mean Corp. HGB Concentration 29.9 g/dL (32.0-36.0); Mean Corpuscular Hemoglobin 26.1 pg (27.0-33.0); Mean Corpuscular Volume 87.1 fL (80-95); Mean Platelet Volume 9.4 fL (8.0-11.0); Monocytes % 8.3; Neutrophils % 73.2; Platelet Count 487 x1000/uL (130-400); RBC 4.49 m/cumm (4.00-5.20); RBC Distribution Width 16.3 % (11.7-14.6); White Blood Cell Count 12.85 k/cumm (4.4-10.8)
[2019-12-24 07:01] LABS: C-Reactive Protein 11.28 mg/dL (0.0-0.3); Glucose 101 mg/dL (74-106)
[2019-12-24] MEDS: Lactobacillus Acidophilus CAP 1 CAP PO ×2 (08:55→20:41)
[2019-12-24] MEDS: Carbamide Peroxide 15 ML BTL AU ×2 (08:55→20:59)
[2019-12-24] MEDS: Metoprolol 25 MG TAB PO ×2 (08:56→20:41)
[2019-12-24] MEDS: Meclizine 12.5 MG TAB PO ×3 (08:56→20:41)
[2019-12-24] MEDS: Sennosides/Docusate Sodium TAB 1 TAB PO ×2 (08:56→20:41)
[2019-12-24] MEDS: Normal Saline Flush 10 ML SYR 20 ML IVP ×2 (08:57→20:41)
--- NOTE | 2019-12-24 11:22 | W.PM.PROGNOT ---
Date of Service Date of service: 12/24/19 Time of Service: 11:23 Assessment and Plan Assessment and plan (1) UTI (urinary tract infection): Status: Acute (2) Protein-calorie malnutrition, moderate: Status: Acute (3) Anemia, iron deficiency, inadequate dietary intake: Status: Acute Assessment and plan: cont supplementation (4) Weakness of both lower extremities: Status: Acute Assessment and plan: cont PT (5) Excessive cerumen in both ear canals: Status: Acute (6) Hiatal hernia: Status: Acute (7) New onset type 2 diabetes mellitus: Status: Acute Assessment and plan: pt refuses to take medication (8) Vertigo: Status: Acute (9) Elevated hemoglobin A1c: Status: Acute (10) Traumatic hematoma of abdominal wall with infection: Status: Acute Assessment and plan: doing well needs home RN and home PT pt refuses to go to rehab will cont drains and IV abx until am. If redness continues or increases?may need to remove drains and transition to packing- which pt is not going to do well with. Continue supportive care. No signs of thrush or diarrhea. Plan on discharge in a.m. once home health and PT are set up (11) Malignant neoplasm of breast (female), unspecified site: Status: Acute (12) Essential hypertension: Status: Acute (13) Uncomplicated asthma: Status: Acute (14) Transient cerebral ischemia: Status: Acute (15) History of tobacco use: Status: Acute (16) Chronic obstructive pulmonary disease with hypoxia: Status: Acute Assessment and plan: pt refuses to wear O2. documented hypoxia. pt will not wear O2 Subjective Subjective Interval history since last seen: RT checked her O2 levels while ambulatory- they were around 84-86. They are around 88-90 while sitting. Pt refuses to wear O2 She denies Cp or SOB w/ ambulation. no cough no headaches. No CP or SOB. no productive cough. no dysuria. no leg pain or swelling. Pt has not had any ambnormality in her telemetry in 48hrs. Will discontinue. dizziness is better w/ antivert. She walked around in the halls today. She has 13 steps she house to go up to get into her home. serous only from drains Exam HENMT Head: normal to inspection Teeth and gingiva: multiple restorations and poor dentition Throat: posterior oropharynx normal Other: no thrush Eyes Other: no eye pain or jaundice Chest Chest: normal inspection of the chest Resp Effort & Inspection: normal respiratory effort and able to speak in complete sentences Auscultation: clear to auscultation bilaterally Cardio Rate: regular rate Rhythm: regular rhythm GI Palpation: soft Auscultation: normal bowel sounds Other: drains have some redness around them today. unsure if this is bruising or infection come up from the deeper tissues, local irritation, or superficial infection of the skin. Skin General skin exam: no rashes or lesions noted Other: No breakdown. Extrem General: normal to inspection and no clubbing, cyanosis or edema Objective Objective Clinical Data: Abnormal lab results 12/24/19 12/24/19 Range/Units 06:32 06:32 WBC 12.85 H (4.4-10.8) k/cumm Hgb 11.7 L (12.0-15.5) g/dL MCH 26.1 L (27.0-33.0) pg MCHC 29.9 L (32.0-36.0) g/dL RDW 16.3 H (11.7-14.6) % Plt Count 487 H (130-400) x1000/uL Absolute Neutrophils 9.41 H (1.2-6.7) k/cumm Absolute Monocytes 1.07 H (0.11-0.7) k/cumm C-Reactive Protein 11.28 H (0.0-0.3) mg/dL Vital Signs Temperature 36.1 C L 12/24/19 07:20 Temperature Source Tympanic 12/24/19 07:20 Pulse 85 12/24/19 07:20 Pulse Rhythm Regular 12/24/19 02:43 Respiratory Rate 18 12/24/19 07:20 Respiratory Effort Non-Labored 12/24/19 02:43 Respiratory Depth Normal 12/24/19 02:43 Respiratory Pattern Normal 12/24/19 02:43 Blood Pressure 102/69 12/24/19 07:20 Pulse Oximetry 92 L 12/24/19 09:22 Respiratory End-tidal CO2 36 12/20/19 16:43 Oxygen Delivery Method Room Air 12/24/19 09:22 Oxygen Flow Rate 0 12/24/19 09:22 Pain Level 0 12/24/19 07:20 Comment 12/23/19 23:42 Intake & Output 12/23/19 12/23/19 12/24/19 11:59 23:59 11:59 Intake Total 190 / 1132 942 / 1132 Output Total 115 / 152 37 / 152 Balance 75 / 980 905 / 980 Intake: IV 40 / 252 212 / 252 Oral 150 / 880 730 / 880 Output: Drainage Right Abdomen Urine 100 / 100 Other: Urine Color Yellow Yellow Pale Urine Appearance Clear Clear Clear Urine Odor Normal Normal None Stool Size Small Large Moderate Stool Characteristics Soft Liquid Soft Brown Brown Voiding Methods Bedside Commode Toilet Toilet Laboratory Results WBC 12.85 k/cumm (4.4-10.8) H 12/24/19 06:32 RBC 4.49 m/cumm (4.00-5.20) 12/24/19 06:32 Hgb 11.7 g/dL (12.0-15.5) L 12/24/19 06:32 Hct 39.1 % (36.0-46.0) 12/24/19 06:32 MCV 87.1 fL (80-95) 12/24/19 06:32 MCH 26.1 pg (27.0-33.0) L 12/24/19 06:32 MCHC 29.9 g/dL (32.0-36.0) L 12/24/19 06:32 RDW 16.3 % (11.7-14.6) H 12/24/19 06:32 Plt Count 487 x1000/uL (130-400) H 12/24/19 06:32 MPV 9.4 fL (8.0-11.0) 12/24/19 06:32 Immature Gran % 1.0 % 12/24/19 06:32 Neutrophils % 73.2 12/24/19 06:32 Lymphocytes % 14.6 12/24/19 06:32 Monocytes % 8.3 12/24/19 06:32 Eosinophils % 2.7 12/24/19 06:32 Basophils % 0.2 12/24/19 06:32 Absolute Neutrophils 9.41 k/cumm (1.2-6.7) H 12/24/19 06:32 Absolute Lymphocytes 1.88 k/cumm (1.2-3.4) 12/24/19 06:32 Absolute Monocytes 1.07 k/cumm (0.11-0.7) H 12/24/19 06:32 Absolute Eosinophils 0.35 k/cumm (0.0-0.7) 12/24/19 06:32 Absolute Basophils 0.03 k/cumm (0.0-0.2) 12/24/19 06:32 Differential Comment Diff reviewed 12/22/19 06:45 RBC Morphology See below 12/22/19 06:45 Polychromasia Present 12/22/19 06:45 PT 10.7 sec (9.3-11.0) 12/20/19 13:55 INR 1.1 (0.9-1.1) 12/20/19 13:55 Glucose 101 mg/dL (74-106) 12/24/19 06:32 Hemoglobin A1c 6.9 % (3.8-5.6) H 12/21/19 06:35 Iron 27 ug/dL (50-170) L 12/20/19 13:55 TIBC 172 ug/dL (250-450) L 12/20/19 13:55 Transferrin % Sat 16 % (15-50) 12/20/19 13:55 Ferritin 410 ng/mL (8-252) H 12/20/19 13:55 C-Reactive Protein 11.28 mg/dL (0.0-0.3) H 12/24/19 06:32 Urine Color Yellow (Yellow) 12/23/19 06:18 Urine Clarity Cloudy (Clear) 12/23/19 06:18 Urine pH 5.5 (5-8) 12/23/19 06:18 Ur Specific [place] >= 1.030 (1.005-1.025) H 12/23/19 06:18 Urine Protein Negative mg/dL (Negative) 12/23/19 06:18 Urine Ketones Negative mg/dL (Negative) 12/23/19 06:18 Urine Blood Trace-intact (Negative) H 12/23/19 06:18 Urine Nitrite Negative (Negative) 12/23/19 06:18 Urine Bilirubin Negative (Negative) 12/23/19 06:18 Urine Urobilinogen 0.2 EU/dL (Up TO 0.2) 05/09/20 06:18 Ur Leukocyte Esterase Moderate (Negative) H 12/23/19 06:18 Urine RBC 5-10 HPF (0-2) H 12/23/19 06:18 Urine WBC >50 HPF (0-5) H 12/23/19 06:18 Ur Epithelial Cells Many HPF (Negative) 12/23/19 06:18 Urine Crystals Negative HPF (Negative) 12/23/19 06:18 Urine Bacteria Moderate HPF (Negative) 12/23/19 06:18 Urine Casts Negative LPF (Negative) 12/23/19 06:18 Urine Mucus Negative (Negative) 12/23/19 06:18 Urine Other Few renal (Negative) 12/23/19 06:18 Ur Culture Indicated? No/sq. contamination 12/23/19 06:18 Urine Glucose Negative mg/dL (Negative) 12/23/19 06:18 COVID-19 PCR Cancelled 12/20/19 17:13 Nasopharyn COVID-19 PCR Cancelled 12/20/19 17:13 Ref Test Perform Site Cancelled 12/20/19 17:13
--- NOTE | 2019-12-24 12:24 | PDOC.HHF2F ---
Home Health Certification Home Health Certification: 1. Encounter Date and Reason I certify that DRE LYMAN was seen by Radha Cartwright on 12/24/19 and that I had a [id number] encounter with this patient that meets the physician face to face encounter requirements. 2. Clinical Findings Supporting Skilled Need and Homebound Status I certify that home health services are medically necessary, include either intermittent [place] [facility] and/or physical/speech therapy, and that this patient is homebound in that absences from the home require considerable and taxing effort and are infrequent or of short duration, or are attributable to the need to receive medical care. [X] (a) Attached documentation from encounter provides clinical findings supporting skilled need and homebound status (including what assistance patient requires to leave the home). The encounter with the patient was in whole, or in part, for the following medical condition, which is the primary reason for home health care: INFECTED ABDOMINAL WALL HEMATOMA DM/COPD- oxygen dependent/severe LE weakness/protein chary malnutrition/vertigo/ANA/htn/tia/hiatal hernia/gerd Care Home:will require daily dressing changes for 2-4 weeks Physical Therapy:needs pt for strength. see there assessment. Speech Therapy: Homebound: 3. Certification and Authentication I certify that I composed the above information based on my clinical judgement relating to this patient's medical condition and, if applicable, clinical findings communicated to me by the NPP or inpatient physician who performed the Home Health Referral. All further orders will be obtained through Dr. Saha (Community Based Physician - PCP)
[2019-12-24] MEDS: Acetaminophen 325 MG TAB 650 MG PO ×2 (13:04→23:30)
--- NOTE | 2019-12-24 13:50 | PT.INTREAT ---
Date of service: 12/24/19 Time of Service: 13:50 PT Notes Visit Reasons: INFECTED ABDOMINAL WALL HEMATOMA Inpatient Physical Therapy Treatment Note [facility] Date: 12/24/2019 PRECAUTIONS: Fall. Standard. Activity as tolerated. SUBJECTIVE: Patient denies any dizziness for both morning and afternoon sessions. She states that she had a good night last night and was able to rest well. She is agreeable to using oxygen at home if it can make her less tired. She had questions regarding who is getting to set up her oxygen and she was advised that the respiratory therapist along with the physician locums urgent care will make sure that everything will be taken cared of before she leaves. OBJECTIVE: CHET drains in place. IV in right ureter. Surgical dressing over incision. PAIN: Diminishing discomfort and tenderness over surgical incision. BED MOBILITY/TRANSFERS Sit-stand: Supervision using BUEs for support, requires use of front wheeled walker Stand-sit: Supervision using BUEs for support, requires use of front wheeled walker Bed-Chair: Supervision using BUEs for support, requires use of front wheeled walker Chair-bed: Supervision using BUEs for support, requires use of front wheeled walker GAIT Assistive Device: Front wheeled walker Weight bearing: Full weight bearing Assist: Standby assist Distance: 200 feet +50 feet feet in the morning and 200 feet + 50 feet feet in the afternoon session Deviation: Farhana beginning to improve. Oxygen saturation staying above 90% on 1 L/min via NC. STAIRS: Patient tolerated up-and-down eighteen 4-inch steps and twelve 6-inch steps while holding onto bilateral rails with 1 L of oxygen supplementation via NC saturating above 90% throughout on 1 L/min, step-to gait pattern requiring only supervision assist. THERA EX: Patient tolerated ankle dorsiflexion x10, plantarflexion x10, long arc quads x10, seated clamshell exercises x10, and seated hip flexion x10 with 3-5 times of pursed lip breathing after each exercises with good response. ASSESSMENT: Significant meaningful improvements in functional mobility, activity tolerance, and balance have been demonstrated as of today. Patient also was confident about being able to manage stairs at home as he has somebody with her all the time to make sure that she is safe. She denies any shortness of breath throughout both ambulation activities. She did not demonstrate any loss of balance. She will continue to benefit from continued skilled services in anticipation of return to home with . PLAN: Continue with PT POC with focus on regaining prior level of function using front wheeled walker. Patient will benefit from home health PT services in order to progress mobility level using least restrictive assistive ambulatory device, assess home safety, identify additional equipment needs, and establish a functional maintenance program that will increase ability of patient to remain at home. TREATMENT CODE/TIME: Session 1??48538 x 25 minutes, 21507 x 13 minutes, beginning at 9:20 AM. Session 2??[id number] x 40 minutes beginning at 13:50 PM.
[2019-12-24] MEDS: cefTRIAXone 2 GM/50 ML BAG IVPB (14:45)
--- NOTE | 2019-12-24 17:43 | PDOC.CMPRO ---
- If Service Date Differs Date of service: 12/24/19 Time of Service: 17:43 Care Management Progress Note S/O: Per report, Heavenly is improving medically. She will need new orders for HH RN, and PT, which were placed by MD today. She was evaluated by RT, but refused to wear oxygen. She has also declined medication for her new onset type 2 diabetes. She is agreeing to HH services, which are strongly recommended. CM will continue to follow. A: Radha is an 79 year old female admitted to [facility] on 12/20/19 with Abdominal Wall Hematoma. P: Heavenly will return home when medically cleared by provider. She will have new orders for HH RN, coordinated by CM. She may have out pt PT, if indicated. She will follow up with her surgeon, PCP and discharge plan of care. She will transport via private vehicle with family.CM will continue to support patient, family and discharge planning needs.
[2019-12-25 01:05] VITALS: O2SAT 97
[2019-12-25 05:02] VITALS: BP 149/71; PULSE 79; RESP 17; TEMP 36.7; O2SAT 92
[2019-12-25 07:21] VITALS: BP 133/60; PULSE 73; RESP 19; TEMP 36.9; O2SAT 94
[2019-12-25] MEDS: Sennosides/Docusate Sodium TAB 1 TAB PO (09:22)
[2019-12-25] MEDS: Meclizine 12.5 MG TAB PO ×2 (09:22→13:50)
[2019-12-25] MEDS: Lactobacillus Acidophilus CAP 1 CAP PO (09:22)
[2019-12-25] MEDS: Metoprolol 25 MG TAB PO (09:22)
[2019-12-25] MEDS: Normal Saline Flush 10 ML SYR 20 ML IVP (09:23)
[2019-12-25] MEDS: Carbamide Peroxide 15 ML BTL AU (09:25)
--- NOTE | 2019-12-25 10:44 | W.PM.PROGNOT ---
Date of Service Date of service: 12/25/19 Time of Service: 10:44 Assessment and Plan Assessment and plan (1) Chronic obstructive pulmonary disease with hypoxia: Status: Acute Assessment and plan: Patient should be on home O2 but she refused to wear it. Patient would benefit from [facility] (2) Protein-calorie malnutrition, moderate: Status: Acute Assessment and plan: Diabetic protein shakes daily (3) Anemia, iron deficiency, inadequate dietary intake: Status: Acute Assessment and plan: She did receive 200 mg of IV Venofer in the hospital. Patient has problems with constipation as it is. I will not start oral iron (4) Weakness of both lower extremities: Status: Acute (5) Excessive cerumen in both ear canals: Status: Acute Assessment and plan: Patient was discharged home with a medication for this as well (6) Hiatal hernia: Status: Acute Assessment and plan: Continue PPI (7) New onset type 2 diabetes mellitus: Status: Acute Assessment and plan: Patient refuses to acknowledge this diagnosis. She is refusing treatment at this time. (8) Vertigo: Status: Acute (9) Malignant neoplasm of breast (female), unspecified site: Status: Acute (10) Traumatic hematoma of abdominal wall with infection: Status: Acute Assessment and plan: Cavity is 50% the size of on presentation. She will need daily wet-to-dry dressing changes/packing. I am going to leave her PICC line in place because she is such a different called by the start the least for a week to make sure she does not require any more IV antibiotics. I can remove this in the office. She will require daily flushings per home RN (11) Essential hypertension: Status: Acute (12) Chronic cough: Status: Chronic (13) Elevated TSH: Status: Chronic (14) Transient cerebral ischemia: Status: Acute (15) Increased body mass index: Status: Chronic (16) History of tobacco use: Status: Acute (17) Chronic obstructive pulmonary disease: Status: Acute Subjective Subjective Interval history since last seen: no headaches. No CP or SOB. no productive cough. no dysuria. no leg pain or swelling. pt very anxious about having drain removed. It is slightly redder again today- so I'm going to pull them and do packing. Serous only from them adn minimal Exam Narrative Exam Narrative: All vitals have been reviewed A & O x3 in NAD SHEENT examination revealed Mucous membranes are moist. No jaundice. Dentition is intact No JVD. No bruising. No corneal abrasions. Examination of the chest revealed Normal excursion. CTA b/l. No R/R/W. Examination of the heart revealed NSR. No new murmers. No s/s of fluid overload. Examination of the abdomen revealed good BS. CHET drains have more redness around the surrounding skin. The drainage is serous only. The drains removed. The cavity is probed. There is good granulation tissue. About 10% slough. And the cavity is 8 x6 x 4 cm. This is packed with about foot a large plain gauze The neuromuscular examination was intact. No focal deficeits. Moving ext. Independently. No calf pain or tenderness. Distal peripheral pulses are intact. No skin breakdown Pt were able to express questions and concerns and were apprised of there condition and expected discharge. Objective Objective Clinical Data: Vital Signs Temperature 36.9 C 12/25/19 07:21 Temperature Source Temporal Artery Scan 12/25/19 07:21 Pulse 73 12/25/19 07:21 Pulse Rhythm Regular 12/25/19 03:39 Respiratory Rate 19 12/25/19 07:21 Respiratory Effort Non-Labored 12/25/19 03:39 Respiratory Depth Normal 12/25/19 03:39 Respiratory Pattern Normal 12/25/19 03:39 Blood Pressure 133/60 12/25/19 07:21 Pulse Oximetry 94 L 12/25/19 07:21 Respiratory End-tidal CO2 36 12/20/19 16:43 Oxygen Delivery Method Room Air 12/25/19 07:21 Oxygen Flow Rate 0 12/25/19 07:21 Pain Level 0 12/25/19 07:21 Comment 12/23/19 23:42 Intake & Output 12/24/19 12/24/19 12/25/19 11:59 23:59 11:59 Intake Total 40 / 1142 1102 / 1142 Output Total 10 / 410 400 / 410 Balance 30 732 702 / 732 Intake: IV 40 / 142 102 / 142 Oral 1000 / 1000 Output: Drainage Right Abdomen Urine 400 / 400 Other: Urine Color Pale Yellow Yellow Urine Appearance Clear Clear Clear Urine Odor None None Comment urine mixed with stool unable to measure Stool Size Moderate Small Moderate Stool Characteristics Soft Soft Soft Brown Brown Formed Brown Voiding Methods Toilet Bedside Commode Toilet Laboratory Results WBC 12.85 k/cumm (4.4-10.8) H 12/24/19 06:32 RBC 4.49 m/cumm (4.00-5.20) 12/24/19 06:32 Hgb 11.7 g/dL (12.0-15.5) L 12/24/19 06:32 Hct 39.1 % (36.0-46.0) 12/24/19 06:32 MCV 87.1 fL (80-95) 12/24/19 06:32 MCH 26.1 pg (27.0-33.0) L 12/24/19 06:32 MCHC 29.9 g/dL (32.0-36.0) L 12/24/19 06:32 RDW 16.3 % (11.7-14.6) H 12/24/19 06:32 Plt Count 487 x1000/uL (130-400) H 12/24/19 06:32 MPV 9.4 fL (8.0-11.0) 12/24/19 06:32 Immature Gran % 1.0 % 12/24/19 06:32 Neutrophils % 73.2 12/24/19 06:32 Lymphocytes % 14.6 12/24/19 06:32 Monocytes % 8.3 12/24/19 06:32 Eosinophils % 2.7 12/24/19 06:32 Basophils % 0.2 12/24/19 06:32 Absolute Neutrophils 9.41 k/cumm (1.2-6.7) H 12/24/19 06:32 Absolute Lymphocytes 1.88 k/cumm (1.2-3.4) 12/24/19 06:32 Absolute Monocytes 1.07 k/cumm (0.11-0.7) H 12/24/19 06:32 Absolute Eosinophils 0.35 k/cumm (0.0-0.7) 12/24/19 06:32 Absolute Basophils 0.03 k/cumm (0.0-0.2) 12/24/19 06:32 Differential Comment Diff reviewed 12/22/19 06:45 RBC Morphology See below 12/22/19 06:45 Polychromasia Present 12/22/19 06:45 PT 10.7 sec (9.3-11.0) 12/20/19 13:55 INR 1.1 (0.9-1.1) 12/20/19 13:55 Glucose 101 mg/dL (74-106) 12/24/19 06:32 Hemoglobin A1c 6.9 % (3.8-5.6) H 12/21/19 06:35 Iron 27 ug/dL (50-170) L 12/20/19 13:55 TIBC 172 ug/dL (250-450) L 12/20/19 13:55 Transferrin % Sat 16 % (15-50) 12/20/19 13:55 Ferritin 410 ng/mL (8-252) H 12/20/19 13:55 C-Reactive Protein 11.28 mg/dL (0.0-0.3) H 12/24/19 06:32 Urine Color Yellow (Yellow) 12/23/19 06:18 Urine Clarity Cloudy (Clear) 12/23/19 06:18 Urine pH 5.5 (5-8) 12/23/19 06:18 Ur Specific [place] >= 1.030 (1.005-1.025) H 12/23/19 06:18 Urine Protein Negative mg/dL (Negative) 12/23/19 06:18 Urine Ketones Negative mg/dL (Negative) 12/23/19 06:18 Urine Blood Trace-intact (Negative) H 12/23/19 06:18 Urine Nitrite Negative (Negative) 12/23/19 06:18 Urine Bilirubin Negative (Negative) 12/23/19 06:18 Urine Urobilinogen 0.2 EU/dL (Up TO 0.2) 12/23/19 06:18 Ur Leukocyte Esterase Moderate (Negative) H 12/23/19 06:18 Urine RBC 5-10 HPF (0-2) H 12/23/19 06:18 Urine WBC >50 HPF (0-5) H 12/23/19 06:18 Ur Epithelial Cells Many HPF (Negative) 12/23/19 06:18 Urine Crystals Negative HPF (Negative) 12/23/19 06:18 Urine Bacteria Moderate HPF (Negative) 12/23/19 06:18 Urine Casts Negative LPF (Negative) 12/23/19 06:18 Urine Mucus Negative (Negative) 12/23/19 06:18 Urine Other Few renal (Negative) 12/23/19 06:18 Ur Culture Indicated? No/sq. contamination 12/23/19 06:18 Urine Glucose Negative mg/dL (Negative) 12/23/19 06:18 COVID-19 PCR Cancelled 12/20/19 17:13 Nasopharyn COVID-19 PCR Cancelled 12/20/19 17:13 Ref Test Perform Site Cancelled 12/20/19 17:13
[2019-12-25] MEDS: LORazepam 2 MG/ML VIAL 0.5 MG IVP (10:49)
--- NOTE | 2019-12-25 12:04 | DSE_ITS ---
Date of service: 12/25/19 Time of Service: 12:04 DS: Diagnosis Discharge Diagnosis (1) UTI (urinary tract infection): Status: Acute (2) Protein-calorie malnutrition, moderate: Status: Acute (3) Anemia, iron deficiency, inadequate dietary intake: Status: Acute (4) Weakness of both lower extremities: Status: Acute (5) Excessive cerumen in both ear canals: Status: Acute (6) Hiatal hernia: Status: Acute (7) New onset type 2 diabetes mellitus: Status: Acute (8) Vertigo: Status: Acute (9) Elevated hemoglobin A1c: Status: Acute (10) Traumatic hematoma of abdominal wall with infection: Status: Acute (11) Malignant neoplasm of breast (female), unspecified site: Status: Acute (12) Essential hypertension: Status: Acute (13) Uncomplicated asthma: Status: Acute (14) Transient cerebral ischemia: Status: Acute (15) History of tobacco use: Status: Acute (16) Chronic obstructive pulmonary disease with hypoxia: Status: Acute Discharge Plan Disposition Patient Disposition: HOME Condition: Improving Discharge Details Reason For Visit: INFECTED ABDOMINAL WALL HEMATOMA Admit Date/Time: 12/20/19 12:42 Admit Provider: Radha Cartwright Attending Provider: Radha Catrwright Primary Care Provider: Linus Saha Home Meds and New Rx's Prescriptions: New meclizine 12.5 mg Tablet 12.5 mg PO TID 30 Days Qty: 90 RF: 0 carbamide peroxide [Ear Drops (carbamide peroxide)] 6.5 % Drops 0 ml AU BID Qty: 1 RF: 0 acidophilus-pectin, citrus 25 million cell -100 mg tablet 2 tab PO BID 30 Days Qty: 120 RF: 0 tramadol 50 mg tablet 50 mg PO Q6H PRN PRN14 Days RF: 0 amoxicillin-pot clavulanate [Augmentin] 875-125 mg tablet 1 tab PO Q12H 5 Days Qty: 10 RF: 0 tramadol 50 mg tablet 50 mg PO Q6H PRNQty: 14 RF: 0 Continued aspirin [Adult Low Dose Aspirin] 81 mg tablet,delayed release (DR/EC) 81 mg PO DAILY RF: 0 metoprolol tartrate 25 mg tablet 25 mg PO BID Qty: 180 RF: 3 (DME) Aerochamber MV spacer See Dose Instructions .ROUTE .MEDSUPPLY Qty: 1 RF: 0 albuterol sulfate [Ventolin HFA] 90 mcg/actuation HFA aerosol inhaler 2 puff IH Q4H PRN (Reason: shortness of breath or wheezing) Qty: 8.5 RF: 11 famotidine [Pepcid AC] 20 mg tablet 20 mg PO DAILY PRNRF: 0 prochlorperazine maleate [Compazine] 10 mg tablet 10 mg PO Q8H PRN (Reason: nausea and vomiting) Qty: 20 RF: 0 acetaminophen 500 MG tablet 1,000 mg PO daily prn RF: 0 Discontinued Dramamine 25 mg tablet,chewable 50 mg PO Q8H PRNRF: 0 Discharge Instructions Instructions: Meal Planning with Diabetes Exchanges (GEN) Additional Instructions: Keep an ice bag on the incision. 20 minutes on and 20 minutes off. Ice keeps the swelling down and swelling causes pain. Make sure you wrap the ice pack in a towel and don't apply directly to the skin. -No driving x1 week or of you are taking narcotic pain medications. -Follow-up with Dr. Cartwright Tuesday 12/26 at 11:30. Packing change will be done in the office that day. -wet to dry packing daily. Home RN will do packing and dressing change -controlled carb diet. no restrictions. -no straining to move bowels -pain meds are very constipating: if you do not move your bowels daily take a dose of OTC milk of magnesia -It is ok to shower. No bathe, soaking, swimming or hot tubs; cover wound to shower. -Protein supplements daily- diabetic . You may find that your appetite is smaller. Eat 3-6 small meals throughout the day. It is important to drink lots of water after surgery, 6-10 glasses a day. -If you were given an incentive spirometry (breathing plug sorter?), continue to do this 10x/hour while awake. -We do want you up walking, at least 5-6 times per day. This is very important to prevent pneumonia and blood clots. You can climb stairs, take them slowly. -No lifting over 5 pounds. This is very important to avoid developing a hernia in your incision. -You may find that you are very tired after surgery- this is normal. -pack wound wet to dry daily until healed- 6-12 weeks. -take a pain pill (Ultram) 1 hr prior to dressing changes -pt will require home health RN for daily dressing changes, and dressing changes weekly/per protocol, and flush PICC line(daily). Home PT and [facility] -home health will provide dressing supplies. Rx for saline flushes daily and dressing changes per protocol. -start abx on wednesday. Stand Alone Forms: Nursing Discharge Form Referrals: Radha Cartwright DO [OSTEOPATHIC DOCTOR] - 12/27/19 11:30 am Activity:: per home PT. no restrictions Equipment/Supplies:: No Equipment Needed Diet:: Carb Counting Discharge Data Discharge Comment: after rocephin given DS: Summary Status at Discharge Functional status at discharge: uses cane/walker Overall status at discharge: patient is progressing back to baseline Mental Status: mental status grossly normal Speech and Movement: speech and movement normal and agitated Mood: anxious mood Affect: anxious affect Exam Psych Mental Status: mental status grossly normal Speech and Movement: speech and movement normal and agitated Mood: anxious mood Affect: anxious affect DS: Data Vitals/I&O Vitals and I&O: Vital Signs Temperature 36.9 C 12/25/19 07:21 Temperature Source Temporal Artery Scan 12/25/19 07:21 Pulse 73 12/25/19 07:21 Pulse Rhythm Regular 12/25/19 10:00 Respiratory Rate 19 12/25/19 07:21 Respiratory Effort Non-Labored 12/25/19 10:00 Respiratory Depth Normal 12/25/19 10:00 Respiratory Pattern Normal 12/25/19 10:00 Blood Pressure 133/60 12/25/19 07:21 Pulse Oximetry 94 L 12/25/19 07:21 Respiratory End-tidal CO2 36 12/20/19 16:43 Oxygen Delivery Method Room Air 12/25/19 07:21 Oxygen Flow Rate 0 12/25/19 07:21 Pain Level 0 12/25/19 07:21 Comment 12/23/19 23:42 Intake & Output 12/24/19 12/25/19 12/25/19 23:59 11:59 23:59 Intake Total 1102 / 1142 260 / 260 Output Total 400 / 410 Balance 702 / 732 260 / 260 Intake: IV 102 / 142 Oral 1000 / 1000 240 / 240 Output: Urine 400 / 400 Other: Urine Color Yellow Yellow Urine Appearance Clear Clear Urine Odor None Comment urine mixed with stool unable to measure Stool Size Small Moderate Stool Characteristics Soft Soft Brown Formed Brown Voiding Methods Bedside Commode Toilet Data Completed and Pending Labs on day of discharge: Preliminary micro results at discharge 12/20/19 15:45 Anaerobic Culture - Preliminary Abdomen Corynebacterium Species 12/20/19 14:45 Blood Culture - Preliminary Blood NO GROWTH 96 HOURS 12/20/19 13:55 Blood Culture - Preliminary Blood NO GROWTH 96 HOURS 12/20/19 15:45 Surgical Culture - Preliminary Abdomen [facility] Medical History (Updated 12/24/19 @ 12:13 by Radha Cartwright DO) Abdominal wall hematoma (Acute) Allergy (Acute) Anemia, iron deficiency, inadequate dietary intake (Acute) Chronic obstructive pulmonary disease with hypoxia (Acute) COPD (chronic obstructive pulmonary disease) (Chronic) Diverticulitis (Resolved) Dizziness of unknown etiology (Acute) Elevated hemoglobin A1c (Acute) Essential hypertension (Acute 04/04/12) Fracture of proximal end of right humerus (Inactive 03/03/19) Hiatal hernia (Acute) History of PSVT (paroxysmal supraventricular tachycardia) (Acute) Malignant neoplasm of breast (female), unspecified site (Acute) LEFT BREAST (Note patient denies any history of breast cancer. She says she has had a spot on her left breast that is been there for 45 years and she declines to have any mammogram or work-up) Nausea (Resolved) Nausea (Acute) Other elevated white blood cell count (Acute) Phlegm in throat (Acute) Protein-calorie malnutrition, moderate (Acute) TIA (transient ischemic attack) (Inactive) Traumatic hematoma of abdominal wall with infection (Acute) UTI (urinary tract infection) (Acute) Weakness of both lower extremities (Acute) Surgical History Cholecystectomy (09/03/16) Social History Smoking/Tobacco Use Status: Former Tobacco Use Quit Date: 12/14/88 Alcohol Intake: never Drug use: Never Substance use type: does not use Current gender identity: female Do you feel safe at home: Yes Do you feel safe in your relationship?: Yes
[2019-12-25] MEDS: cefTRIAXone 2 GM/50 ML BAG IVPB (13:03)
[2019-12-25] MEDS: Normal Saline Flush 10 ML SYR IVP (13:50)
--- NOTE | 2019-12-25 15:01 | PDOC.CMDIS ---
- If Service Date Differs Date of service: 12/25/19 Time of Service: 15:01 LACE Index Scoring Tool - Questions: Length of Stay (in days): 4 - 6 Acuity (Admit via E.D.?): No Comorbidities: Chronic Pulmonary Disease, Any Tumor E.D. Visits: 1 - Answers: Total Score: 10 Risk of Readmission: High Risk Care Management Discharge Reason for Hospitalization: Abdominal wall hematoma Discharge Plan: Heavenly will be discharged home with new home health nursing and PT. She will require daily dressing changes and a flush for her PICC line. Heavenly will be transported with her family via private vehicle and follow up with her surgeon and discharge plan of care. Patient/Family Education Needs: Discharge plan, limitations, follow up plan, Ask Me Three
--- NOTE | 2019-12-25 15:49 | INDS_ITS ---
Date of service: 12/25/19 Time of Service: 09:32 PT Notes Visit Reasons: INFECTED ABDOMINAL WALL HEMATOMA Physical Therapy Inpatient Discharge Summary Date: 12/25/2019 Dates of service: 12/21/2019 through 12/25/2019 Referring Doctor: Radha Cartwright MD PT Orders: PT CONSULT: Eval/treat Precautions: Fall. Standard. Activity as tolerated. Patient Profile/Admitting Diagnosis: Patient is an 79-year-old female who who is status post incision and drainage of an infected abdominal wall hematoma on 12/20/2019. PMHX: Medical History (Updated 12/20/19 @ 21:53 by Radha Cartwright DO) Abdominal wall hematoma (Acute) Allergy (Acute) COPD (chronic obstructive pulmonary disease) (Chronic) Diverticulitis (Acute) Essential hypertension (Acute 04/04/12) Malignant neoplasm of breast (female), unspecified site (Acute) LEFT BREAST Nausea (Acute) Other elevated white blood cell count (Acute) Phlegm in throat (Acute) TIA (transient ischemic attack) (Inactive) Traumatic hematoma of abdominal wall with infection (Acute) Surgical History Cholecystectomy (09/03/16) Social History/Home Situation: Heavenly lives with in a private home with 13 steps to enter with rails on both sides. At baseline she is modified independent with all ambulation activities using the front wheeled walker. She states that although she is able to manage her bathing, is there supervising to make sure that she is safe and she has everything she needs. She also indicated that does the cooking and meal preparation at home. Their daughter does grocery shopping for them. provides transportation for patient as needed as patient states she will not drive even though she still can. She elaborates that she does not sleep in bed but uses her manual rec lining chair as it is more comfortable. Equipment Owned/DME: Wheelchair, shower seat, walk-in shower, manual recliner SUBJECTIVE: Patient denies any dizziness for both morning and afternoon sessions . She states that she had a good night last night and was able to rest well. She is agreeable to using oxygen at home if it can make her less tired. She had questions regarding who is getting to set up her oxygen and she was advised that the respiratory therapist along with the health care facility administrator will make sure that everything will be taken cared of before she leaves. OBJECTIVE: CHET drains in place. IV in right UE. Surgical dressing over incision. PAIN: Diminishing discomfort and tenderness over surgical incision. BED MOBILITY/TRANSFERS Sit-stand: Supervision using BUEs for support, requires use of front wheeled walker Stand-sit: Supervision using BUEs for support, requires use of front wheeled walker Bed-Chair: Supervision using BUEs for support, requires use of front wheeled walker Chair-bed: Supervision using BUEs for support, requires use of front wheeled walker GAIT Assistive Device: Front wheeled walker Weight bearing: Full weight bearing Assist: Supervision Distance: 150 feet +150 feet feet Deviation: Farhana beginning to improve. Oxygen saturation staying above 90% on 1 L/min via NC. STAIRS: Patient tolerated up-and-down 3 4-inch steps and 2 6-inch steps while holding onto bilateral rails without oxygen supplementation with saturation ranging from 89 to 95% on room air. Standby assist assist provided. THERA EX: Patient tolerated ankle dorsiflexion x10, plantarflexion x10, long arc quads x10, seated clamshell exercises x10, and seated hip flexion x10 with 3-5 times of pursed lip breathing after each exercises with good response. ASSESSMENT: Significant and meaningful improvements in functional mobility, activity tolerance, and balance have been demonstrated as of today. Patient also was confident about being able to manage stairs as she has somebody with her all the time to make sure that she is safe. She denies any shortness of breath throughout both ambulation activities. She did not demonstrate any loss of balance. She will continue to benefit from continued skilled services in anticipation of return to home with . Oxygen saturation ranged from 89% to 94% on room air. Patient continues to present with clinical signs and symptoms consistent with current/admitting diagnoses that have resulted to mobility limitations, gait instability, generalized weakness, and impairment of motor control as demonstrated by the following impairment level findings: 1. Decreased strength to B LE major muscle groups 2. Impaired activity tolerance 3. Limitation of joint range of motion in right shoulder (chronic) Impairments are continuing to contribute to the following functional limitat ions: 1. Inability to safely ambulate without assistive device and physical assistance 2. Increase completion time for mobility ADL performance 3. Increased fall risk 4. Inability to negotiate steps alone safely Goals: Goals X1 week 1. Supine-Sit independent MET 2. Sit-Supine independent MET 3. Sit-Stand independent NOT MET 4. Stand-Sit independent NOT MET 5. Bed-Chair independent NOT MET 6. Chair-Bed independent NOT MET 7. Independent gait on level surface with use of front wheeled walker for at least 300 feet without report of pain nor dyspnea NOT MET 8. Independent stair negotiation while holding onto bilateral rails for at least 10 steps without report of pain nor dyspnea NOT MET 9. Independent with home exercise program NOT MET 10. Good static and dynamic standing balance/tolerance NOT MET DISCHARGE RECOMMENDATIONS: Patient will benefit from home health PT services in order to progress mobility level using least restrictive assistive ambulatory device, assess home safety, identify additional equipment needs, and establish a functional maintenance program that will increase ability of patient to remain at home. TREATMENT CODE/TIME: 29876 x 30 minutes minutes, 17046 x 19 minutes beginning at 9:32 AM. Thank you very much for this referral. Arielle Fay PT, DPT, CLT [facility] [place], [place]
== END 2019-12-25 15:16 | disposition home or self-care (01) | DRG 580 ==
PROVIDERS: Surgery; Admitting Provider Surgery; PCP Family Medicine; Visit Provider Surgery
PROC: 0W9F00Z Drainage of Abdominal Wall with Drainage Device, Open Approach (ICD-10-PCS; CPT 10140; principal; 2019-12-20 15:00)
DX: S30.1XXA Contusion of abdominal wall, initial encounter (principal); E44.0 Moderate protein-calorie malnutrition; Z68.41 Body mass index [BMI] 40.0-44.9, adult; N39.0 Urinary tract infection, site not specified; L02.211 Cutaneous abscess of abdominal wall; R11.0 Nausea; X58.XXXA Exposure to other specified factors, initial encounter; R42 Dizziness and giddiness; H61.23 Impacted cerumen, bilateral; D50.8 Other iron deficiency anemias; R53.1 Weakness; K44.9 Diaphragmatic hernia without obstruction or gangrene; E11.65 Type 2 diabetes mellitus with hyperglycemia; I10 Essential (primary) hypertension; J44.9 Chronic obstructive pulmonary disease, unspecified; Z87.891 Personal history of nicotine dependence; R09.02 Hypoxemia; Z86.73 Personal history of transient ischemic attack (TIA), and cerebral infarction without residual deficits
CPT/HCPCS: 10140; 36410; 36415; 82947; 87040; 97110; 97162; 97530; 99222; 99232; 99239; 99252; NC; U0003; 70450; 71046; 81003; 81015; 82728; 83036; 83540; 83550; 85025; 85610; 86140; 87070; 87075; 87205; 93005; 93010; 99221; J1100; J1756; J2001; J2060; J2405; J2543; J2704; J3490

== ENCOUNTER → 2019-12-27 11:30 | Outpatient (BNVA) | payer MEDICARE, OTHER, SELFPAY | PROVIDERS: PCP Family Medicine; Referring Provider Family Medicine; Visit Provider Surgery | DX: S30.1XXD Contusion of abdominal wall, subsequent encounter (principal); X58.XXXD Exposure to other specified factors, subsequent encounter; L08.9 Local infection of the skin and subcutaneous tissue, unspecified; J44.9 Chronic obstructive pulmonary disease, unspecified; R09.02 Hypoxemia; E44.0 Moderate protein-calorie malnutrition; D50.8 Other iron deficiency anemias; R29.898 Other symptoms and signs involving the musculoskeletal system; K44.9 Diaphragmatic hernia without obstruction or gangrene; E11.9 Type 2 diabetes mellitus without complications; R42 Dizziness and giddiness; Z87.891 Personal history of nicotine dependence | CPT/HCPCS: 99213 ==

== ENCOUNTER → 2020-01-03 13:07 | Outpatient (BNVA) | payer MEDICARE, OTHER, SELFPAY | PROVIDERS: PCP Family Medicine; Referring Provider Family Medicine; Visit Provider Surgery | DX: S30.1XXD Contusion of abdominal wall, subsequent encounter (principal); X58.XXXD Exposure to other specified factors, subsequent encounter; L08.9 Local infection of the skin and subcutaneous tissue, unspecified; J44.9 Chronic obstructive pulmonary disease, unspecified; I10 Essential (primary) hypertension; E11.9 Type 2 diabetes mellitus without complications | CPT/HCPCS: 99212; 99213 ==

== ENCOUNTER → 2020-01-10 13:28 | Outpatient (BNVA) | payer MEDICARE, OTHER, SELFPAY | PROVIDERS: PCP Family Medicine; Referring Provider Family Medicine; Visit Provider Surgery | DX: S30.1XXD Contusion of abdominal wall, subsequent encounter (principal); X58.XXXD Exposure to other specified factors, subsequent encounter; L08.9 Local infection of the skin and subcutaneous tissue, unspecified; K44.9 Diaphragmatic hernia without obstruction or gangrene; D35.00 Benign neoplasm of unspecified adrenal gland; J44.9 Chronic obstructive pulmonary disease, unspecified; R09.02 Hypoxemia; E11.9 Type 2 diabetes mellitus without complications | CPT/HCPCS: 11042; 99213 ==

== ENCOUNTER 2020-01-17 02:41 | Outpatient (CLI) | payer MEDICARE, OTHER, SELFPAY ==
[2020-01-17 14:01] LABS: Abs Immature Grans 0.03 k/cumm (0.0-0.09); Absolute Basophil Count 0.02 k/cumm (0.0-0.2); Absolute Eosinophil Count 0.34 k/cumm (0.0-0.7); Absolute Lymphocyte Count 2.26 k/cumm (1.2-3.4); Absolute Monocyte Count 0.62 k/cumm (0.11-0.7); Absolute Neutrophil Count 5.37 k/cumm (1.2-6.7); Basophils % 0.2; Eosinophils % 3.9; HCT 43.7 % (36.0-46.0); HGB 13.1 g/dL (12.0-15.5); Immature Grans % 0.3 %; Lymphocytes % 26.2; Mean Corpuscular Hemoglobin 26.9 pg (27.0-33.0); Mean Corpuscular Volume 89.7 fL (80-95); Mean Platelet Volume 10.1 fL (8.0-11.0); Monocytes % 7.2; Neutrophils % 62.2; Platelet Count 330 x1000/uL (130-400); RBC 4.87 m/cumm (4.00-5.20); RBC Distribution Width 18.4 % (11.7-14.6); White Blood Cell Count 8.64 k/cumm (4.4-10.8)
[2020-01-17 14:39] LABS: Iron 44 ug/dL (50-170); Total Iron Binding Capacity 227 ug/dL (250-450); Transferrin Sat 19 % (15-50)
[2020-01-17 14:41] LABS: ALT 28 U/L (14-59); AST 21 U/L (15-37); Albumin 3.5 g/dL (3.4-5.0); Alkaline Phosphatase 86 U/L (46-116); Anion Gap 6.5 mmol/L (3-11); BUN 9 mg/dL (7-18); Bilirubin, Total 0.6 mg/dL (0.2-1.0); CO2 29.5 mmol/L (21.0-32.0); Calcium 9.1 mg/dL (8.5-10.1); Chloride 103 mmol/L (98-107); Glucose 99 mg/dL (74-106); Potassium 4.7 mmol/L (3.5-5.1); Sodium 139 mmol/L (136-145); Total Protein 6.7 g/dL (6.4-8.2)
== END 2020-01-17 03:01 ==
PROVIDERS: PCP Family Medicine; Visit Provider Surgery
DX: E11.9 Type 2 diabetes mellitus without complications; D35.00 Benign neoplasm of unspecified adrenal gland; E44.0 Moderate protein-calorie malnutrition; S30.1XXD Contusion of abdominal wall, subsequent encounter; X58.XXXD Exposure to other specified factors, subsequent encounter; D50.8 Other iron deficiency anemias; L02.211 Cutaneous abscess of abdominal wall
CPT/HCPCS: 11042; 36415; 80053; 99212; 83540; 83550; 85025

== ENCOUNTER → 2020-01-31 10:30 | Outpatient (BNVA) | payer MEDICARE, OTHER, SELFPAY | PROVIDERS: PCP Family Medicine; Referring Provider Family Medicine; Visit Provider Surgery | DX: S30.1XXD Contusion of abdominal wall, subsequent encounter (principal); X58.XXXD Exposure to other specified factors, subsequent encounter; L08.9 Local infection of the skin and subcutaneous tissue, unspecified; I10 Essential (primary) hypertension; J44.9 Chronic obstructive pulmonary disease, unspecified; Z87.891 Personal history of nicotine dependence | CPT/HCPCS: 99212; 99213 ==

== ENCOUNTER → 2020-02-14 09:57 | Outpatient (BNVA) | payer MEDICARE, OTHER, SELFPAY | PROVIDERS: PCP Family Medicine; Referring Provider Family Medicine; Visit Provider Surgery | DX: S30.1XXD Contusion of abdominal wall, subsequent encounter (principal); X58.XXXD Exposure to other specified factors, subsequent encounter; Z51.89 Encounter for other specified aftercare; J44.9 Chronic obstructive pulmonary disease, unspecified; I10 Essential (primary) hypertension; Z87.891 Personal history of nicotine dependence | CPT/HCPCS: 99213 ==

== ENCOUNTER → 2020-02-28 09:59 | Outpatient (BNVA) | payer MEDICARE, OTHER, SELFPAY | PROVIDERS: PCP Family Medicine; Referring Provider Family Medicine; Visit Provider Surgery | DX: S30.1XXD Contusion of abdominal wall, subsequent encounter (principal); X58.XXXD Exposure to other specified factors, subsequent encounter; I10 Essential (primary) hypertension; J44.9 Chronic obstructive pulmonary disease, unspecified; Z87.891 Personal history of nicotine dependence | CPT/HCPCS: 99213 ==

== ENCOUNTER → 2020-03-06 10:01 | Outpatient (BNVA) | payer MEDICARE, OTHER, SELFPAY | PROVIDERS: PCP Family Medicine; Referring Provider Family Medicine; Visit Provider Surgery | DX: S30.1XXD Contusion of abdominal wall, subsequent encounter (principal); X58.XXXD Exposure to other specified factors, subsequent encounter; J44.9 Chronic obstructive pulmonary disease, unspecified; I10 Essential (primary) hypertension | CPT/HCPCS: 99211; 99212 ==

== ENCOUNTER 2023-04-03 14:00 | Emergency (ER) | payer MEDICARE, SELFPAY ==
[2023-04-03] VITALS (19 sets, daily range): BP systolic 129–138; BP diastolic 45–57; PULSE 57–71; RESP 15–24; O2SAT 86–90
--- NOTE | 2023-04-03 14:00 | RT.EKG_ITS ---
APPROVED REPORT Exam: Resting ECG Reason for Exam: sob Patient Location: E HR:61 bpm ECG Measurements Heart Rate 61 AXIS WA 161 P 39 QRSd 89 QRS 1 QT 422 T 43 QTc 426 Conclusion Sinus rhythm...normal P axis, V-rate 60- 99 sinus rhythm, normal axis, non ischemic
--- NOTE | 2023-04-03 14:10 | W.ED.GENAD ---
Discharge Plan Disposition Patient Disposition: Home Condition: Good Discharge Details Clinical Impression: Anxiety, SOB (shortness of breath) Primary Care Provider: Linus Saha ED Provider: Leonor Lind Home Meds and New Rx's Prescriptions: Continued albuterol sulfate [Ventolin HFA] 90 mcg/actuation HFA aerosol inhaler 2 puff IH Q4H PRN (Reason: shortness of breath or wheezing) Qty: 25.5 3RF nystatin 100,000 unit/gram cream 1 applic topical BID PRN (Reason: vaginal rash) Qty: 30 0RF prednisone 20 mg tablet 40 mg PO DAILY Qty: 10 0RF acetaminophen 500 MG tablet 1,000 mg PO daily prn (DME) Aerochamber MV Spacer See Dose Instructions .ROUTE .MEDSUPPLY Qty: 1 0RF Dose Instruction: As directed Rx Instructions: As directed No Action metoprolol tartrate 25 mg tablet 25 mg PO BID Qty: 180 3RF Discharge Instructions Instructions: Anxiety (ED) Additional Instructions: Your exam is reassuring here today. Please use your inhaler as previously prescribed if you have increased shortness of breath or wheezing. There is no evidence of pneumonia, heart strain, or infection at this time. Please keep your upcoming appointment with pulmonology. Please continue to encourage hydration. Try to stop gulping air when eating as this is likely what is causing you to burp. Please follow-up with primary care in 1 week for reevaluation. I am concerned that some of this may be associated with anxiety and encourage you to speak with mental health and Dr. Saha about your anxiety. You may reach [facility] at [phone]. Plan is for your granddaughter to stay with you tonight. Please use your Albuterol as prescribed and take your other medication. If you develop any new or worsening symptoms please seek care urgently once again. Referrals: Linus Saha MD [Primary Care Provider] - Discharge Data Discharge Date/Time-TO BE ENTERED AT DEPARTURE: 04/03/23 16:59 Medical Decision Making Patient is a pleasant 82-year-old female with past medical history significant for adjustment disorder with anxious mood, hypertension, diabetes, obesity, COPD, anemia, vertigo, breast cancer,presenting with c/c of SOB. STates that thsi began about 4 days ago. Fell 7 days ago without trauma to head or chest. Denies LOC, visual cahnges, pain with inspiration, denies increase in cough or sputum production. Denies fevers/chills, no CP, no abdominal pain, N/V/D. Has been using inhaler with temporary improvement. No hx of DVT, denies leg pain. No recent change in medications. Was seen by PCP 2 days ago, referral to pulm was made, PFTs ordered. At that time, SOB was worse after waking, now she reports it is more with eating and that she has had a decrease in PO intake secondary to the SOB with eating. She denies increased SOB with walking/exertion. HX of smoking, no current tobacco use. No personal or familial cardiovascular disease. On exam, patient appears nontoxic. She appears anxious. She is speaking in complete sentences, unlabored. No diaphoresis. Lungs are clear, normal cardiac exam. No LE edema. Abdomen is benign. With her hx of COPD, will give nebulizer, she has inhaler at home, does not use it much. States she uses it in the morning, does not find that it makes a big difference for her. Considered COPD exacerbation, PE with her overall sedentary life style, ACS, although I find this less likely with no exertional component vs. other. She does not have pain to suggest dissection, pneumo. No cough or fever to suggest pneumonia. ECG reviewed by Dr. Lentz, no ischemic changes noted. Labs without signficant abnormality. Her cxr was reviewed by radiologist with no acute changes noted. discussed with patient. She had no change with nebulizer. She continues to rest comfortably. Her O2 is in the high 80s to low 90s which she reports is her baseline. Her grand daughter is now at bed side. She reports that on the day this began, the family that lives nearest to the patient went on vacation, this always maker her very anxious. We discussed her symptoms further and patient is now disclosing that she feels like she is SOB with eating as, my lungs are not digesting the food appropriately. We discussed the function of lungs and separation with the GI tract. This seemed to assure her. She is working with PT, has great family support. Feels like much of this mayh be anxiety driven. This would fit the timeline and symptoms. Again, no CP or exertional SOB/CP. Her granddaugther will stay with her tonight, patient feels that this will be very helpful. She would like to be d/c'ed to home. I encouraged that she discuss her anxiety further with her PCP, consider counseling. Strict reture precautions discussed, all of their quesitons and concerns were addressed, she is in agreement with raymond rosa. Family is going to encourage the further discussion with PCP about anxiety as this has been an ongoing, and progressing issue. HPI General Date/Time Provider Initiated Documentation: 04/03/23 14:10. Limitations to Documentation: no limitations. Information obtained by: patient, RN notes reviewed and old records reviewed. History of Present Illness 82 year old F presents to the emergency department with the chief complaint of SOB, described as moderate and similar to prior episodes (reports hx of COPD), Quality is described as other (denies any pain associated with this complaint), and is localized to the chest. Patient started experiencing this day(s) and it has been intermittent. Movement improves symptom(s), Eating worsens symptoms (becomes SOB with eating, feels that this has limited her appetite) . Patient notes loss of appetite, malaise and shortness of breath; denies confusion, chest pain, cough, diaphoresis, fever/chills, headaches, nausea/vomiting, rash and syncope. Patient did receive the following treatments prior to arrival, none Related Data Home Medications Medication Instructions Recorded Confirmed acetaminophen 500 mg tablet 1,000 mg PO daily prn 05/01/16 04/06/23 nystatin 100,000 unit/gram topical 1 applic topical BID PRN vaginal 11/05/21 04/06/23 cream rash #30 grams albuterol sulfate 90 mcg/actuation 2 puff inhalation Q4H PRN 10/06/22 04/06/23 aerosol inhaler (Ventolin HFA) shortness of breath or wheezing #25.5 grams inhalational spacing device #1 ea 11/06/22 04/06/23 (Aerochamber MV spacer) prednisone 20 mg tablet 40 mg PO DAILY #10 tabs 04/01/23 04/06/23 metoprolol tartrate 25 mg tablet 25 mg PO BID #180 tab-caps 04/06/23 04/06/23 Previous Rx's Medication Instructions Recorded nystatin 100,000 unit/gram topical 1 applic topical BID PRN vaginal 11/05/21 cream rash #30 grams albuterol sulfate 90 mcg/actuation 2 puff inhalation Q4H PRN 10/06/22 aerosol inhaler (Ventolin HFA) shortness of breath or wheezing #25.5 grams inhalational spacing device #1 ea 11/06/22 (Aerochamber MV spacer) prednisone 20 mg tablet 40 mg PO DAILY #10 tabs 04/01/23 metoprolol tartrate 25 mg tablet 25 mg PO BID #180 tab-caps 04/06/23 Allergies Allergy/AdvReac Type Severity Reaction Status Date / Time codeine AdvReac Severe GI UPSET Verified 04/06/23 13:36 omeprazole AdvReac Verified 04/06/23 13:36 Edward AdvReac Severe Nausea Uncoded 04/06/23 13:36 General Stated Complaint: SOB INOCENCIA: 3 Review of Systems Constitutional Constitutional: Reports as per HPI, Denies chills, Denies fever(s) and Denies headache(s) Eyes Eyes: Denies change in vision ENT Ears, Nose, Mouth, and Throat: Denies dizziness and Denies headache(s) Cardiovascular Cardiovascular: Reports as per HPI and Denies dyspnea on exertion Respiratory Respiratory: Reports as per HPI, Denies chest congestion, Denies cough, Denies pain on inspiration, Denies pain with cough, Denies dyspnea on exertion and Denies wheezing Gastrointestinal Gastrointestinal: Reports as per HPI, Denies abdominal pain, Denies diarrhea and Denies vomiting Musculoskeletal Musculoskeletal: Reports as per HPI and Denies back pain Integumentary/Breasts Skin/Breast: Reports as per HPI and Denies rash Neurologic Neurologic: Reports as per HPI, Denies dizziness and Denies headache(s) Allergic/Immunologic Allergic/Immunologic: Denies wheezing PFSH All Active Problems (Updated 04/03/23 @ 16:46 by SARA Riojas) Anxiety (Chronic) SOB (shortness of breath) (Acute) Grief reaction (Chronic) suicide of Adjustment disorder with anxious mood (Acute) Tremulousness (Acute) Essential hypertension (Acute) Obesity (Chronic) Diabetes mellitus (Chronic) Chronic obstructive pulmonary disease with hypoxia (Acute) UTI (urinary tract infection) (Acute) Protein-calorie malnutrition, moderate (Acute) Anemia, iron deficiency, inadequate dietary intake (Acute) Weakness of both lower extremities (Acute) Excessive cerumen in both ear canals (Acute) Hiatal hernia (Acute) New onset type 2 diabetes mellitus (Acute) Vertigo (Acute) Elevated hemoglobin A1c (Acute) Dizziness of unknown etiology (Acute) Traumatic hematoma of abdominal wall with infection (Acute) Malignant neoplasm of breast (female), unspecified site (Acute) LEFT BREAST (Note patient denies any history of breast cancer. She says she has had a spot on her left breast that is been there for 45 years and she declines to have any mammogram or work-up) Essential hypertension (Acute 04/04/12) Nausea (Acute) Abdominal wall hematoma (Acute) Other elevated white blood cell count (Acute) Abdominal wall bulge (Acute) Allergy (Acute) Phlegm in throat (Acute) Cough (Chronic) reactive/inflammatory Chronic cough (Chronic) sounds/looks allergic Elevated TSH (Chronic) Uncomplicated asthma (Acute 04/04/12) Transient cerebral ischemia (Acute 06/22/16) * NORMAL HEAD CT; [facility] 06/22/16 Increased body mass index (Chronic) History of tobacco use (Acute) Grief reaction (Acute) of son Chronic obstructive pulmonary disease (Acute) Patient denies this diagnosis and I could not find any formal PFTs to support the diagnosis Choledocholithiasis (Acute 10/04/16) 10/04/16 INCREASED LFT'S Adrenal adenoma (Acute) Cholecystitis (Acute) Medical History (Updated 04/03/23 @ 16:46 by SARA Riojas) COPD (chronic obstructive pulmonary disease) Diverticulitis Fracture of proximal end of right humerus (03/03/19) History of PSVT (paroxysmal supraventricular tachycardia) Nausea TIA (transient ischemic attack) Surgical History Cholecystectomy (09/03/16) Family History (Updated 04/30/21 @ 17:40 by Gerri Rivera) Sister , 85 Cancer Social History (Updated 04/30/21 @ 17:40 by Gerri Rivera) Smoking/Tobacco Use Status: Never Second Hand Exposure: Yes Smoking risk assessment performed?: Yes Alcohol Intake: never Substance use type: does not use Household members: none Housing: house Communication Needs: None Pets and animals: Yes Pets and animals: dog(s) Current gender identity: female What is your relationship status?: How often do you talk on the phone with friends or family?: decline to answer How often do you get together with friends or relatives?: decline to answer How often do you attend anglican or caodaism services?: decline to answer Do you belong to any clubs or organized social groups?: decline to answer Panel score (0-1 are the most socially isolated patients): 1 What type of physical activity do you participate in: none Special curtis needs: No Seatbelt use: always Drive intox or ride w/intox local combination truck driver: No Do you feel safe at home: Yes Do you feel safe in your relationship?: Yes Exam Const General: cooperative, healthy appearing, comfortable, no acute distress, well developed and anxious Nutritional Appearance: well nourished and overweight Orientation: alert, awake and oriented x3 HENMT Head: normal to inspection Ears: hearing grossly normal bilaterally Mouth: moist mucous membranes Chest Chest: normal inspection of the chest, normal palpation of entire chest wall and no crepitus Resp Effort & Inspection: normal respiratory effort, able to speak in complete sentences and no respiratory distress Auscultation: clear to auscultation bilaterally, no rales, no rhonchi and no wheezes Cardio Rate: regular rate Rhythm: regular rhythm Heart Sounds: S1 normal and S2 normal GI Inspection: normal to inspection, no edema and non-distended Palpation: soft, no hepatosplenomegaly, not firm, no guarding, not rigid and nontender Auscultation: normal bowel sounds Back/Spine/Pelvis Back: no CVA tenderness Thoracic/Lumbar Spine: thoracic and lumbar spine normal to inspection Skin General skin exam: no rashes or lesions noted Trauma: no lacerations or abrasions Neuro General: patient alert, patient awake and patient oriented x3 Cognition: normal cognition Speech: speech normal Gait: normal gait Extrem General: normal to inspection, capillary refill normal, no pedal edema, no calf tenderness and abnormal gait (ambulates with walker or cane at home at baseline) Psych Appearance: grossly normal and well kempt Mental Status: mental status grossly normal Speech and Movement: speech and movement normal Mood: anxious mood Affect: anxious affect Course Vital Signs Vital signs: Vital Signs Pulse 60 04/03/23 14:02 Respiratory Rate 20 04/03/23 14:02 Blood Pressure 129/45 L 04/03/23 14:02 Pulse Oximetry 90 L 04/03/23 14:02 Pulse 60 04/03/23 14:02 Respiratory Rate 20 04/03/23 14:02 Blood Pressure 129/45 L 04/03/23 14:02 Blood Pressure Position Sitting 04/03/23 14:02 Pulse Oximetry 90 L 04/03/23 14:02 Oxygen Delivery Method Room Air 04/03/23 14:02 Oxygen Flow Rate 0 04/03/23 14:02 Pain Level 0 04/03/23 14:02
--- NOTE | 2023-04-03 14:30 | DI.RAD_ITS ---
Exam(s) XR CHEST 2V PA LATERAL EXAM: XR CHEST 2V PA LATERAL CLINICAL HISTORY: SOB. TECHNIQUE: 2D digital imaging was performed. COMPARISON: CR XR CHEST 2V PA LATERAL from 12/20/2019 FINDINGS: 2 views: Heart size is normal. The mediastinum is not widened. Lungs are clear. No infiltrates nor pleural effusions. IMPRESSION: No acute pulmonary findings. DATA REPOSITORY: RADIATION DOSE DELIVERED:
[2023-04-03 14:47] LABS: Abs Immature Grans 0.04 10^3/uL (0.0-0.06); Absolute Basophil Count 0.06 10^3/uL (0.0-0.2); Absolute Monocyte Count 0.82 10^3/uL (0.1-0.8); Absolute Neutrophil Count 5.52 10^3/uL (1.2-6.7); Basophils % 0.6; HGB 15.4 g/dL (11.2-15.7); Immature Grans % 0.4; Lymphocytes % 32.9; MCH 28.3 pg (27.0-33.0); MCHC 32.1 % (32.0-36.0); MCV 88 fL (80-95); Monocytes % 8.4; Neutrophils % 56.7; Platelet Count 279 10^3/uL (130-400); RBC 5.44 10^6/uL (3.93-5.22); RDW-SD 45.2 fL; WBC 9.74 10^3/uL (4.4-10.8)
--- NOTE | 2023-04-03 15:01 | DI.VRAD_ITS ---
PROCEDURE INFORMATION: Exam: XR Chest Exam date and time: 04/03/2023 2:53 PM Age: 82 years old Clinical indication: Shortness of breath TECHNIQUE: Imaging protocol: Radiologic exam of the chest. Views: 2 views. COMPARISON: CR XR CHEST 2V PA LATERAL 01/19/2020 14:29 FINDINGS: Lungs: No focal consolidation. Pleural spaces: Unremarkable. No pleural effusion. No pneumothorax. Heart/Mediastinum: Stable cardiomediastinal silhouette. Vasculature: Atherosclerotic disease. Bones/joints: Multilevel degenerative changes of the spine. Degenerative changes of the right shoulder. IMPRESSION: No acute cardiopulmonary findings. Dictated and Authenticated by: Kimberly Bush MD. Ordering:ALEXANDRU Galvez MD
[2023-04-03] MEDS: Albuterol/Ipratropium 3 ML UPD VIAL UPD (15:03)
[2023-04-03 15:06] LABS: ALT 17 U/L (14-59); AST 16 U/L (15-37); Albumin 3.7 g/dL (3.4-5.0); Alkaline Phosphatase 78 U/L (46-116); BUN 12 mg/dL (7-18); CREATININE 0.8 mg/dL (0.55-1.02); Calcium 8.9 mg/dL (8.5-10.1); Chloride 105 mmol/L (98-107); Estimated GFR 73.06 (mL/min/1.73m2); Glucose 140 mg/dL (74-106); Potassium 4.1 mmol/L (3.5-5.1); Sodium 142 mmol/L (136-145); Total Protein 7.3 g/dL (6.4-8.2); Troponin I < 50 ng/L (<or=60)
[2023-04-03 15:16] LABS: D-Dimer 363 ng/mlFEU (<500)
[2023-04-03] MEDS: Meclizine 25 MG TAB PO (15:40)
[2023-04-03] MEDS: Lactated Ringers 500 ML IV (16:12)
== END 2023-04-03 16:59 | disposition home or self-care (01) ==
PROVIDERS: Emergency Provider Physician Assistant; PCP Family Medicine
DX: J44.9 Chronic obstructive pulmonary disease, unspecified (principal); R11.2 Nausea with vomiting, unspecified; F41.9 Anxiety disorder, unspecified; I10 Essential (primary) hypertension; E11.9 Type 2 diabetes mellitus without complications
CPT/HCPCS: 80053; 93005; 94640; 96361; 99284; 71046; 83735; 84443; 84484; 85025; 85379; 93010; J7620

== ENCOUNTER → 2023-09-27 13:43 | Outpatient (CLI) | payer MEDICARE, SELFPAY ==
--- NOTE | 2023-09-27 10:22 | DI.RAD_ITS ---
Exam(s) XR CHEST 2V PA LATERAL EXAM: XR CHEST 2V PA LATERAL CLINICAL HISTORY: URI,j06.9,ACUTE,COIGH,WHEEZING,RHONCHI,? PNEUMONIA TECHNIQUE: 2D digital imaging was performed. COMPARISON: CR,XR XR CHEST 2V PA LATERAL from 04/03/2023 FINDINGS: HEART: Normal size. Aorta: Not dilated. PULMONARY VASCULATURE: Normal. LUNGS: Clear. PLEURAL SPACE: No pleural effusion or pneumothorax. BONE:Unremarkable for age. Soft tissues: Unremarkable. IMPRESSION: No acute abnormality. DATA REPOSITORY: RADIATION DOSE DELIVERED:
== END ==
PROVIDERS: PCP Family Medicine; Visit Provider Physician Assistant
DX: R05.9 Cough, unspecified (principal)
CPT/HCPCS: 71046

== ENCOUNTER 2023-10-16 06:58 | Emergency (ER) | payer MEDICARE, SELFPAY ==
--- NOTE | 2023-10-16 06:45 | RT.EKG_ITS ---
APPROVED REPORT Exam: Resting ECG Reason for Exam: chest pain Patient Location: E HR:73 bpm ECG Measurements Heart Rate 73 AXIS TN 142 P 59 QRSd 87 QRS 4 QT 389 T 39 QTc 429 Conclusion Sinus rhythm...normal P axis, V-rate 60- 99 Anteroseptal infarct, old...Q >40mS, V1-V2 sinus rhythm, normal axis, normal intervals, non ischemic
[2023-10-16 07:00] VITALS: BP 160/42; PULSE 83; RESP 18; TEMP 36.5; O2SAT 94
--- NOTE | 2023-10-16 07:15 | DI.RAD_ITS ---
Exam(s) XR CHEST 2V PA LATERAL EXAM: XR CHEST 2V PA LATERAL CLINICAL HISTORY: cough TECHNIQUE: 2D digital imaging was performed. COMPARISON: CR XR CHEST 2V PA LATERAL from 09/27/2023 FINDINGS: HEART: Normal size. Aorta: Not dilated. PULMONARY VASCULATURE: Normal. LUNGS: Increased left basilar densities. PLEURAL SPACE: Small left pleural effusion. BONE:Unremarkable for age. Soft tissues: Unremarkable. IMPRESSION: Small left pleural effusion and adjacent basilar densities which could represent pneumonia. DATA REPOSITORY: RADIATION DOSE DELIVERED:
--- NOTE | 2023-10-16 07:30 | W.ED.GENAD ---
Discharge Plan Disposition Patient Disposition: Home Condition: Improving Discharge Details Clinical Impression: Pneumonia Primary Care Provider: Linus Saha ED Provider: Phu Amaro Home Meds and New Rx's Prescriptions: New amoxicillin-pot clavulanate 875-125 mg tablet 1 tab PO BID 7 Days Qty: 14 0RF azithromycin 250 mg tablet 250 mg PO DAILY 4 Days Qty: 4 0RF Rx Instructions: start on day 2 of therapy albuterol sulfate 2.5 mg /3 mL (0.083 %) solution for nebulization 2.5 mg inhalation Q6H PRN (Reason: shortness of breath or wheezing) Qty: 75 0RF No Action metoprolol tartrate 25 mg tablet 25 mg PO BID Qty: 180 3RF doxycycline hyclate 100 mg capsule 100 mg PO BID Qty: 14 0RF acetaminophen 500 MG tablet 1,000 mg PO daily prn (DME) Aerochamber MV Spacer See Dose Instructions .ROUTE .MEDSUPPLY Qty: 1 0RF Dose Instruction: As directed Rx Instructions: As directed albuterol sulfate [Ventolin HFA] 90 mcg/actuation HFA aerosol inhaler 2 puff IH Q4H PRN (Reason: shortness of breath or wheezing) Qty: 25.5 3RF amoxicillin 500 mg capsule 500 mg PO TID Patient Comments: TAKE 2 CAPSULES BY MOUTH THREE TIMES DAILY FOR 5 DAYS Discharge Instructions Instructions: Pneumonia (ED) HPI General Date/Time Provider Initiated Documentation: 10/16/23 07:18. HPI Narrative: 83-year-old female history of COPD presents with dry cough for the last several days was recently started on amoxicillin as an outpatient, also complaining of flank discomfort left side, denies history of coronary disease or PE. Denies history of kidney stone. No urinary symptoms at this time. Related Data Home Medications Medication Instructions Recorded Confirmed acetaminophen 500 mg tablet 1,000 mg PO daily prn 05/01/16 10/16/23 inhalational spacing device #1 ea 11/06/22 10/16/23 (Aerochamber MV spacer) metoprolol tartrate 25 mg tablet 25 mg PO BID #180 tab-caps 04/06/23 10/16/23 doxycycline hyclate 100 mg capsule 100 mg PO BID #14 caps 09/29/23 10/16/23 albuterol sulfate 90 mcg/actuation 2 puff inhalation Q4H PRN 10/06/23 10/16/23 aerosol inhaler (Ventolin HFA) shortness of breath or wheezing #25.5 grams albuterol sulfate 2.5 mg/3 mL 2.5 mg (3 mL) inhalation Q6H PRN 10/16/23 (0.083 %) solution for nebulization shortness of breath or wheezing #75 mL amoxicillin 500 mg capsule 500 mg PO TID 10/16/23 10/16/23 amoxicillin 875 mg-potassium 1 tab PO BID 7 days #14 tabs 10/16/23 clavulanate 125 mg tablet azithromycin 250 mg tablet 250 mg PO DAILY 4 days #4 tabs 10/16/23 Previous Rx's Medication Instructions Recorded inhalational spacing device #1 ea 11/06/22 (Aerochamber MV spacer) metoprolol tartrate 25 mg tablet 25 mg PO BID #180 tab-caps 04/06/23 doxycycline hyclate 100 mg capsule 100 mg PO BID #14 caps 09/29/23 albuterol sulfate 90 mcg/actuation 2 puff inhalation Q4H PRN 10/06/23 aerosol inhaler (Ventolin HFA) shortness of breath or wheezing #25.5 grams albuterol sulfate 2.5 mg/3 mL 2.5 mg (3 mL) inhalation Q6H PRN 10/16/23 (0.083 %) solution for nebulization shortness of breath or wheezing #75 mL amoxicillin 875 mg-potassium 1 tab PO BID 7 days #14 tabs 10/16/23 clavulanate 125 mg tablet azithromycin 250 mg tablet 250 mg PO DAILY 4 days #4 tabs 10/16/23 Allergies Allergy/AdvReac Type Severity Reaction Status Date / Time codeine AdvReac Severe GI UPSET Verified 10/16/23 07:18 omeprazole AdvReac Other (See Verified 10/16/23 07:18 Comment) Edward AdvReac Severe Nausea Uncoded 10/16/23 07:18 General Stated Complaint: FlankPain INOCENCIA: 3 Review of Systems Narrative: Review of Systems Constitutional: negative Eyes: negative ENT: negative Cardiovascular: negative Respiratory: Cough Gastrointestinal: negative : negative Musculoskeletal: negative Skin: negative Neurologic: negative Psych: negative Exam Narrative Exam Narrative: Physical Examination General: alert, awake, cooperative, resting comfortably, no acute distress HEENT: normocephalic, atraumatic; PERRL, EOM intact, conjunctiva normal; no nasal discharge; moist mucous membranes, oral and pharyngeal mucosa normal, tolerating secretions Neck: supple, trachea midline; full ROM Chest: normal to inspection Respiratory: normal respiratory effort, speaking in full sentences, clear to auscultation, no wheezing, rales or rhonchi Cardiac: regular rate, regular rhythm, S1S2 intact, no murmurs rubs or gallops GI: abdomen soft, non-tender, non-distended; no palpable mass or hepatosplenomegaly Skin: no lesions, rashes or trauma appreciated Neuro: AAOx3, normal speech, moving all extremities Psych: Appropriate mood and affect Course Vital Signs Vital signs: Vital Signs Temperature 36.5 C 10/16/23 07:00 Pulse 83 10/16/23 07:00 Respiratory Rate 18 10/16/23 07:00 Blood Pressure 160/42 H 10/16/23 07:00 Pulse Oximetry 94 10/16/23 07:00 Temperature 36.5 C 10/16/23 07:00 Temperature Source Temporal Artery Scan 10/16/23 07:00 Pulse 83 10/16/23 07:00 Respiratory Rate 18 10/16/23 07:00 Blood Pressure 160/42 H 10/16/23 07:00 Pulse Oximetry 94 10/16/23 07:00 Oxygen Delivery Method Room Air 10/16/23 07:00 Oxygen Flow Rate 0 10/16/23 07:00 Medical Decision Making 83-year-old female history of COPD presents with nonproductive cough for the last couple of days, started amoxicillin, denies fevers chills nausea vomiting does have mild left flank pain, afebrile nontoxic moderate hypertension on arrival. Normoxic on room air speaking full sentences. Consider viral respiratory illness versus early pneumonia versus pleural effusion low suspicion for PE pneumothorax or ACS low suspicion for aortic pathology, patient has no urinary symptoms no history of kidney stones, no colicky abdominal pain or back pain consider flank pain related to coughing versus pleural process. Will obtain screening chest x-ray, urinalysis, trial of nebulized albuterol/ipratropium and dexamethasone. 10: 13 patient resting comfortably no acute distress. Evidence of left lower lobe pneumonia. Will transition patient to Augmentin and azithromycin. Quality:SDOH Health Related Social Needs: No Data to Display PFSH All Active Problems (Updated 10/16/23 @ 10:13 by Phu Amrao MD) Pneumonia (Acute) COVID (Acute) Viral URI (Acute) SOB (shortness of breath) (Acute) Grief reaction (Chronic) suicide of Adjustment disorder with anxious mood (Acute) Tremulousness (Acute) Essential hypertension (Acute) Obesity (Chronic) Diabetes mellitus (Chronic) Chronic obstructive pulmonary disease with hypoxia (Acute) UTI (urinary tract infection) (Acute) Protein-calorie malnutrition, moderate (Acute) Anemia, iron deficiency, inadequate dietary intake (Acute) Weakness of both lower extremities (Acute) Excessive cerumen in both ear canals (Acute) Hiatal hernia (Acute) New onset type 2 diabetes mellitus (Acute) Vertigo (Acute) Elevated hemoglobin A1c (Acute) Dizziness of unknown etiology (Acute) Traumatic hematoma of abdominal wall with infection (Acute) Malignant neoplasm of breast (female), unspecified site (Acute) LEFT BREAST (Note patient denies any history of breast cancer. She says she has had a spot on her left breast that is been there for 45 years and she declines to have any mammogram or work-up) Essential hypertension (Acute 04/04/12) Nausea (Acute) Abdominal wall hematoma (Acute) Other elevated white blood cell count (Acute) Abdominal wall bulge (Acute) Allergy (Acute) Phlegm in throat (Acute) Cough (Chronic) reactive/inflammatory Chronic cough (Chronic) sounds/looks allergic Elevated TSH (Chronic) Uncomplicated asthma (Acute 04/04/12) Transient cerebral ischemia (Acute 06/22/16) * NORMAL HEAD CT; [facility] 06/22/16 Increased body mass index (Chronic) History of tobacco use (Acute) Grief reaction (Acute) of son Chronic obstructive pulmonary disease (Acute) Patient denies this diagnosis and I could not find any formal PFTs to support the diagnosis Choledocholithiasis (Acute 10/04/16) 10/04/16 INCREASED LFT'S Adrenal adenoma (Acute) Cholecystitis (Acute) Medical History (Updated 10/16/23 @ 10:13 by Phu Amaro MD) History of PSVT (paroxysmal supraventricular tachycardia) Nausea Fracture of proximal end of right humerus (03/03/19) COPD (chronic obstructive pulmonary disease) TIA (transient ischemic attack) Diverticulitis Surgical History Cholecystectomy (09/03/16) Family History (Updated 04/30/21 @ 17:40 by Gerri Rivera) Sister , 85 Cancer Social History (Updated 04/30/21 @ 17:40 by Gerri Rivera) Smoking/Tobacco Use Status: Never Second Hand Exposure: Yes Smoking risk assessment performed?: Yes Alcohol Intake: never Substance use type: does not use Household members: none Housing: house Communication Needs: None Pets and animals: Yes Pets and animals: dog(s) Current gender identity: female What is your relationship status?: How often do you talk on the phone with friends or family?: decline to answer How often do you get together with friends or relatives?: decline to answer How often do you attend confucianism or yarsanism services?: decline to answer Do you belong to any clubs or organized social groups?: decline to answer Panel score (0-1 are the most socially isolated patients): 1 What type of physical activity do you participate in: none Special curtis needs: No Seatbelt use: always Drive intox or ride w/intox dolly driver: No Do you feel safe at home: Yes Do you feel safe in your relationship?: Yes
[2023-10-16 07:42] VITALS: PULSE 68; RESP 18; O2SAT 95
[2023-10-16] MEDS: Albuterol/Ipratropium 3 ML UPD VIAL UPD (07:42)
[2023-10-16] MEDS: Dexamethasone 10 MG/ML VIAL PO (07:43)
[2023-10-16 07:54] LABS: Bilirubin Negative (Negative); Blood Negative (Negative); Clarity Clear (Clear); Glucose Negative (Negative); Ketones Negative (Negative); Leukocyte Esterase Negative (Negative); Nitrite Negative (Negative); Specific Gravity <= 1.005 (1.005-1.025); Urobilinogen 0.2 mg/dL (Up to 0.2); pH 5.5 (5-8)
--- NOTE | 2023-10-16 10:00 | DI.VRAD_ITS ---
PROCEDURE INFORMATION: Exam: XR Chest Exam date and time: 10/16/2023 8:02 AM Age: 83 years old Clinical indication: Pain; Cough; On breathing TECHNIQUE: Imaging protocol: Radiologic exam of the chest. Views: 2 views. COMPARISON: CR XR CHEST 2V PA LATERAL 09/27/2023 10:05 AM FINDINGS: Lungs: There is a left lower lobe consolidation with an associated left pleural effusion. Hyperinflated lungs. Pleural spaces: No right pleural effusion. Heart/Mediastinum: Unremarkable. No cardiomegaly. Vasculature: Aortic arch calcifications. Bones/joints: Moderate degenerative disease of bilateral acromioclavicular joints. Chronic deformity of the right proximal humerus. Moderate multilevel degenerative disease of the thoracic spine with anterior osteophytes. IMPRESSION: Left lower lobe consolidation with associated pleural. Dictated and Authenticated by: Ralph Hernandez MD. Ordering:VICKY Bay MD
[2023-10-16] MEDS: Amoxicillin 875/Clav. 125 TAB PO (10:21)
[2023-10-16] MEDS: Azithromycin 250 MG TAB 500 MG PO (10:22)
[2023-10-16 10:43] VITALS: BP 152/50; BP 160/42; PULSE 68; PULSE 70; RESP 18; TEMP 36.5; O2SAT 96
== END 2023-10-16 10:37 | disposition home or self-care (01) ==
PROVIDERS: Emergency Provider Emergency Medicine; PCP Family Medicine
DX: J18.9 Pneumonia, unspecified organism (principal); J44.9 Chronic obstructive pulmonary disease, unspecified; Z86.73 Personal history of transient ischemic attack (TIA), and cerebral infarction without residual deficits
CPT/HCPCS: 93005; 94640; 99284; 71046; 81003; 93010; J1100; J7620

== ENCOUNTER → 2023-11-01 13:45 | Outpatient (CLI) | payer MEDICARE, SELFPAY ==
--- NOTE | 2023-11-01 11:45 | DI.RAD_ITS ---
Exam(s) XR CHEST 2V PA LATERAL EXAM: XR CHEST 2V PA LATERAL CLINICAL HISTORY: Pneumonia, SOB, continued sx after finishing abx, J18.9, R06.02. TECHNIQUE: 2D digital imaging was performed. COMPARISON: CR,XR XR CHEST 2V PA LATERAL from 10/16/2023 FINDINGS: 2 views: Heart size is normal. The mediastinum is not widened. There is no improvement in the appearance of the left lower lobe infiltrate in the left pleural effus ion has not decreased in size. Platelike atelectasis in the right lung base noted, unchanged. IMPRESSION: No improvement in the left lower lobe infiltrate and left pleural effusion. Chest CT scan recommende d. DATA REPOSITORY: RADIATION DOSE DELIVERED:
== END ==
PROVIDERS: PCP Family Medicine; Visit Provider Nurse Practitioner Family
DX: R91.8 Other nonspecific abnormal finding of lung field (principal); R06.02 Shortness of breath
CPT/HCPCS: 71046

== ENCOUNTER → 2023-11-03 03:06 | Outpatient (CLI) | payer MEDICARE, SELFPAY ==
--- NOTE | 2023-11-03 07:45 | DI.CT_ITS ---
Exam(s) CT CHEST WO EXAM: CT CHEST WO CLINICAL HISTORY: f/u xray,pneumonia,sob,j18.9,r06.02 TECHNIQUE: Imaging Protocol: Axial computed tomography images with coronal and sagittal reformatted images were created and reviewed CONTRAST MATERIAL: Intravenous: Omnipaque 350 Contrast volume:structured data ml. COMPARISON: CT ABD PELVIS WITH CONTRAST from 05/12/2016 CT ABD PELVIS WITH CONTRAST from 09/03/[address] ABDOMEN PELVIS WO from 12/19/2019 CR XR CHEST 2V PA LATERAL from 09/27/2023 CR,XR XR CHEST 2V PA LATERAL from 10/16/2023 CR XR CHEST 2V PA LATERAL from 11/01/2023 FINDINGS: Exam limited by motion. Pulmonary parenchyma: Area of consolidation medial left lower lobe with air bronchograms. Near compl ete atelectasis of the left lower lobe. No visible mass. Remainder of the lung us are clear. M ild emphysematous and fibrotic changes present. Mediastinum and [place]: No dominant adenopathy or fluid collection. Pleura: Small left pleural effusion. No pneumothorax. Heart: The heart is mildly dilated. Mild coronary artery calcifications are seen. Aorta: Thoracic aorta non-dilated. [id number] atherosclerotic changes. Upper abdomen: No acute findings.. 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 Status post cholecystectomy. Bones: Degenerative changes in the spine. Soft tissues: Unremarkable. IMPRESSION: Consolidation left lower lobe with near complete atelectasis. No underlying mass is visible on this examination. RADIATION DOSE DELIVERED: Total DLP DATA REPOSITORY: All CT scans at this facility are submitted to the National Radiology Data Registry (NRDR) Dose Index Registry (DIR) with the [employer] (A[employer]). RADIATION OPTIMIZATION: All CT scans at this facility use at least one of these dose optimization te chniques: automated exposure control; mA and/or kV adjustment per patient size (includes targeted exa ms where dose is matched to clinical indication); or iterative reconstruction.
== END ==
PROVIDERS: PCP Family Medicine; Visit Provider Nurse Practitioner Family
DX: J98.11 Atelectasis (principal)
CPT/HCPCS: 71250

== ENCOUNTER 2023-11-04 21:01 | Inpatient (IN) | payer MEDICARE, SELFPAY ==
[2023-11-04] VITALS (67 sets, daily range): BP systolic 95–172; BP diastolic 53–89; PULSE 70–106; RESP 15–29; TEMP 36.2–36.8; O2SAT 90–98
--- NOTE | 2023-11-04 21:00 | RT.EKG_ITS ---
APPROVED REPORT Exam: Resting ECG Reason for Exam: STROKE Patient Location: E HR:104 bpm ECG Measurements Heart Rate 104 AXIS TN 200 P 70 QRSd 86 QRS -5 QT 309 T 49 QTc 407 Conclusion Sinus tachycardia...rate> 99 Low voltage, precordial leads...precordial leads <1.0mV
--- NOTE | 2023-11-04 21:13 | W.ED.GENAD ---
Discharge Plan Discharge Details Chief Complaint: CVA/TIA Primary Care Provider: Linus Saha ED Provider: Aftab Stovall Home Meds and New Rx's Prescriptions: No Action metoprolol tartrate 25 mg tablet 25 mg PO BID Qty: 180 3RF acetaminophen 500 MG tablet 1,000 mg PO daily prn (DME) Aerochamber MV Spacer See Dose Instructions .ROUTE .MEDSUPPLY Qty: 1 0RF Dose Instruction: As directed Rx Instructions: As directed albuterol sulfate [Ventolin HFA] 90 mcg/actuation HFA aerosol inhaler 2 puff IH Q4H PRN (Reason: shortness of breath or wheezing) Qty: 25.5 3RF albuterol sulfate 2.5 mg /3 mL (0.083 %) solution for nebulization 2.5 mg inhalation Q6H PRN (Reason: shortness of breath or wheezing) Qty: 75 0RF HPI General Date/Time Provider Initiated Documentation: 11/04/23 21:13. HPI Narrative: 83 year-old female presents to ED today by EMS with a chief complaint of slurred speech, some coordination deficits noticed by family around 630pm- but the patient states she has not felt right since 0630 this morning at breakfast time. Patient states she felt off, nearly fell with her walker. Patient is a poor historian, cannot state whether this was lightheadedness or vertiginous. Quality described as has just felt off, sick to her stomach with nausea, cant walk right with her walker, felt her words were coming out funny, all day long, no radiation to chest pain, palpitations, fever, visual changes, complete numbness, hemiparesis. Patients' symptoms have resolved by the time of EMS arrival, and remain resolved here in ED. Severity is described as unable to quantify. Palliating factors include nothing specific attempted. Provoking factors include nothing specific. Events leading up to the incident/Associated Symptoms: Patient denies any stroke history. Patient has been being treated for PNA- recently completed ABX, had CXR & Chest CT yesterday that showed resolving PNA. Patient not anticoagulated. Related Data Home Medications Medication Instructions Recorded Confirmed acetaminophen 500 mg tablet 1,000 mg PO daily prn 05/01/16 11/04/23 inhalational spacing device #1 ea 03/24/23 03/21/24 (Aerochamber MV spacer) metoprolol tartrate 25 mg tablet 25 mg PO BID #180 tab-caps 04/06/23 11/04/23 albuterol sulfate 90 mcg/actuation 2 puff inhalation Q4H PRN 10/06/23 11/04/23 aerosol inhaler (Ventolin HFA) shortness of breath or wheezing #25.5 grams albuterol sulfate 2.5 mg/3 mL 2.5 mg (3 mL) inhalation Q6H PRN 10/16/23 11/04/23 (0.083 %) solution for nebulization shortness of breath or wheezing #75 mL Previous Rx's Medication Instructions Recorded inhalational spacing device #1 ea 11/06/22 (Aerochamber MV spacer) metoprolol tartrate 25 mg tablet 25 mg PO BID #180 tab-caps 04/06/23 albuterol sulfate 90 mcg/actuation 2 puff inhalation Q4H PRN 10/06/23 aerosol inhaler (Ventolin HFA) shortness of breath or wheezing #25.5 grams albuterol sulfate 2.5 mg/3 mL 2.5 mg (3 mL) inhalation Q6H PRN 10/16/23 (0.083 %) solution for nebulization shortness of breath or wheezing #75 mL Allergies Allergy/AdvReac Type Severity Reaction Status Date / Time codeine AdvReac Severe GI UPSET Verified 11/04/23 21:42 omeprazole AdvReac Other (See Verified 11/04/23 21:42 Comment) Edward AdvReac Severe Nausea Uncoded 11/04/23 21:42 General Stated Complaint: CVA/TIA INOCENCIA: 3 Review of Systems All systems reviewed & are unremarkable except as noted in HPI and below Exam Narrative Exam Narrative: GENERAL APPEARANCE: Morbid obesity, non-toxic, awake and alert, atraumatic, no acute distress. SKIN: Warm, pink, dry, intact, without rashes/lesions/ulcerations. HEAD: Normocephalic, atraumatic, normal hair distribution for gender/age. EYES: Pupils PERRLA, EOMs intact without nystagmus, normal conjunctiva, no exudates on lids/lashes. ENT: Nares patent, no circumoral cyanosis, no facial swelling NECK: Supple, trachea midline, painless cervical ROM. LUNGS/CHEST: Lungs - rhonchi at bases, non-labored respirations, normal A/P diameter, symmetrical expansion, no chest wall deformity, on 2L O2 by NC- no home O2 use. HEART (CV/PV): Regular rate and rhythm without murmur, no peripheral edema, no JVD. ABDOMEN: Soft, non-distended, no guarding, no tenderness. MSK: Normal ROM, no swelling/deformity to bilateral UEs or LEs, moving all extremities without weakness, no cyanosis, spine midline without tenderness, normal curvature. NEURO: Mental Status AAOx4 - alert to person, place, time, events No facial droop, no forehead involvement, no dysmetria with FNF Motor: No focal weakness - strength 4+/5 in bilateral UEs and LEs- equal, possible with morbid obesity and less effort, proximal and distal, symmetric, no pronator drift Sensory: sensation intact to light touch globally. Gait normal: patient ambulated without ataxia into ED room. PSYCH: euthymic, cooperative, pleasant, appropriate speech Course Vital Signs Vital signs: Vital Signs Temperature 36.2 C L 11/04/23 21:02 Pulse 106 H 11/04/23 21:02 Respiratory Rate 20 11/04/23 21:02 Blood Pressure 153/89 H 11/04/23 21:02 Pulse Oximetry 90 L 11/04/23 21:02 Temperature 36.2 C L 11/04/23 21:02 Temperature Source Tympanic 11/04/23 21:02 Pulse 106 H 11/04/23 21:02 Respiratory Rate 15 11/04/23 21:11 Respiratory Effort Normal 11/04/23 21:11 Respiratory Depth Normal 11/04/23 21:11 Respiratory Pattern Normal 11/04/23 21:11 Blood Pressure 153/89 H 11/04/23 21:02 Blood Pressure Position Sitting 11/04/23 21:02 Pulse Oximetry 90 L 11/04/23 21:02 Oxygen Delivery Method Room Air 11/04/23 21:02 Oxygen Flow Rate 0 11/04/23 21:02 Pain Level 2 11/04/23 21:02 Medical Decision Making This dictation utilizes [id number] dictation software and may contain unedited grammatical errors. 83 y/o F presents to ED today with a chief complaint of felt like she had a stroke- onset unknown but states hasn't felt well since 0630 this morning. Patients family noticed some speech difficulty and coordination issues 12 hours later around 1830. Patients symptoms resolved prior to EMS arrival, remains asymptomatic here in ED. Patient denies chest pain, denies palpitations, cannot differentiate between lightheadedness or vertigo- poor historian. Patient denies stroke history. Patients' medical history: TIA, hypertension, obesity, COPD, chronic anemia, history of vertigo, choledocholithiasis, adrenal adenoma. Family and social history: lives with daughters, no significant exercise. Pertinent exam findings / vital signs include NIH: 0, no slurred speech, moving all extremities at baseline, benign cardiopulmonary status, no respiratory distress. Differential / pathologies of concern include TIA, unlikely CVA, Dizziness, Near Syncope, Vertebral Dissection, ACS, PNA, Viral Syndrome, Electrolyte Abnormality, Nausea. Diagnostic studies of: -CBC, CMP, lactate, lipase, magnesium, troponin I (+3hr value), BNP, procalcitonin, CRP/ESR, ammonia, COVID/flu/RSV PCR, urinalysis, blood cultures, CTA head and neck, x-ray chest, EKG. -CBC shows leukocytosis of 15.94 -Lactate neg -CK negative -CMP benign -CRP 11.71, suspect infectious etiology to patient's nausea and dizziness -Lipase within normal limits -Troponin I negative/BNP negative -Magnesium within normal limits -Ammonia negative -UA pending at time of sign-out -EKG shows sinus tach at 104, P waves followed by narrow complex QRS with normal axis, poor R wave progression, normal QT QTc, some lateral ST depressions in V4 5 6 consistent with priors without reciprocal changes. -CTA Brain & Neck pending at time of sign-out. See Dr. Urias's note for disposition Interventions of: -1L IVF NS. ED Course/Assessment/Plan: 83-year-old female presents by EMS, reportedly she feels like she had a stroke and has not felt right since this morning at 630, said she got up to use her walker and nearly fell over. She states that she has been dizzy and had trouble with her words today. Her family did not notice until 1830 and they called EMS. Symptoms had resolved by the time of EMS arrival and her NIH is 0 here in the emergency department, EMS vitals showed tachycardia and some hypoxia but she has been nonhypoxic with a normal heart rate since arrival. She does feel warm to the touch and her CRP is significantly elevated with a white count of nearly 16. Her lactate is negative and initial cardiac workup is negative, no major electrolyte derangements on CMP. She possibly has TIA pathology with her subjective story but also this may be related to infection and dizziness. She does have nausea with a non-peritoneal abdomen. Patient had CXR and Chest CT for pleural effusion and infiltrate that was improving yesterday. CTA Brain & Neck pending, and repeat cardiac labs pending due to patients dizziness. Patient signed out to oncoming provider Dr. Urias at shift-change. Findings not consistent with active CVA, STEMI, Sepsis, Electrolyte Abnormality. Disposition of TIA. Patient verbalized understanding of the plan and return to ED criteria and engaged in shared decision making. Medical Records Medical records reviewed: Yes I reviewed the patient's medical records. Imaging Data Radiologic Study: Attestation: I personally reviewed and interpreted this imaging study as follows: Imaging: CT Scan My impression: No ischemic lesion seen in brain, carotids appear patent Lab Data Lab results reviewed: Yes I reviewed the patient's lab results. Labs: 11/04/23 21:58 Blood Blood Culture - Pending 11/04/23 21:40 Blood Blood Culture - Pending Laboratory Tests Range/Units 11/04/23 11/04/23 11/04/23 21:15 21:35 21:40 WBC (4.4-10.8) 10^3/uL 15.94 H RBC (3.93-5.22) 10^6/uL 4.85 Hgb (11.2-15.7) g/dL 14.2 Hct (36.0-46.0) % 43.7 MCV (80-95) fL 90 MCH (27.0-33.0) pg 29.3 MCHC (32.0-36.0) % 32.5 RDW (11.7-14.6) % 14.7 H Plt Count (130-400) 10^3/uL 263 MPV (8.0-11.0) fL 10.1 Immature Gran % 0.4 Neutrophils % 76.2 Lymphocytes % 12.0 Monocytes % 10.7 Eosinophils % 0.3 Basophils % 0.4 Nucleated RBC % (0.0-0.3) % 0.0 Absolute Neutrophils (1.2-6.7) 10^3/uL 12.15 H Absolute Lymphocytes (1.2-3.4) 10^3/uL 1.91 Absolute Monocytes (0.1-0.8) 10^3/uL 1.71 H Absolute Eosinophils (0.0-0.7) 10^3/uL 0.05 Absolute Basophils (0.0-0.2) 10^3/uL 0.06 RBC Morphology Normal ESR (0-30) mm/hr 64 H VBG Lactate (0.6-1.4) mmol/L 1.2 Sodium (136-145) mmol/L 139 Potassium (3.5-5.1) mmol/L 3.9 Chloride (98-107) mmol/L 102 Carbon Dioxide (21.0-32.0) mmol/L 27.7 Anion Gap (3-11) mmol/L 9.3 BUN (7-18) mg/dL 10 Creatinine (0.55-1.02) mg/dL 0.7 Est GFR (CKD-EPI 2020) (mL/min/1.73m2) 85.23 Glucose (74-106) mg/dL 131 H Calcium (8.5-10.1) mg/dL 9.0 Magnesium (1.8-2.4) mg/dL 1.9 Total Bilirubin (0.2-1.0) mg/dL 0.9 AST (15-37) U/L 11 L ALT (14-59) U/L 13 L Alkaline Phosphatase (46-116) U/L 86 Ammonia (11-32) umol/L < 10 L Creatine Kinase (26-192) U/L 21 L Troponin I (< or =60) ng/L < 50 C-Reactive Protein (<or=0.5) mg/dL 11.71 H NT-Pro-B Natriuret Pep (<300) pg/mL 290 Total Protein (6.4-8.2) g/dL 7.1 Albumin (3.4-5.0) g/dL 3.3 L Lipase (16-77) U/L 43 Procalcitonin ng/mL < 0.1 COVID-19 Source Nasopharynx SARS-CoV-2 (PCR) (Negative) Negative Influenza Type A (PCR) (Negative) Negative Influenza Type B (PCR) (Negative) Negative RSV (PCR) (Negative) Negative Quality:SDOH Health Related Social Needs: No Data to Display PFSH All Active Problems Pneumonia (Acute) SOB (shortness of breath) (Acute) Grief reaction (Chronic) suicide of Adjustment disorder with anxious mood (Acute) Tremulousness (Acute) Essential hypertension (Acute) Obesity (Chronic) Diabetes mellitus (Chronic) Chronic obstructive pulmonary disease with hypoxia (Acute) UTI (urinary tract infection) (Acute) Protein-calorie malnutrition, moderate (Acute) Anemia, iron deficiency, inadequate dietary intake (Acute) Weakness of both lower extremities (Acute) Excessive cerumen in both ear canals (Acute) Hiatal hernia (Acute) New onset type 2 diabetes mellitus (Acute) Vertigo (Acute) Elevated hemoglobin A1c (Acute) Dizziness of unknown etiology (Acute) Traumatic hematoma of abdominal wall with infection (Acute) Malignant neoplasm of breast (female), unspecified site (Acute) LEFT BREAST (Note patient denies any history of breast cancer. She says she has had a spot on her left breast that is been there for 45 years and she declines to have any mammogram or work-up) Essential hypertension (Acute 04/04/12) Nausea (Acute) Abdominal wall hematoma (Acute) Other elevated white blood cell count (Acute) Abdominal wall bulge (Acute) Allergy (Acute) Phlegm in throat (Acute) Cough (Chronic) reactive/inflammatory Chronic cough (Chronic) sounds/looks allergic Elevated TSH (Chronic) Uncomplicated asthma (Acute 04/04/12) Transient cerebral ischemia (Acute 06/22/16) * NORMAL HEAD CT; [facility] 06/22/16 Increased body mass index (Chronic) History of tobacco use (Acute) Grief reaction (Acute) of son Chronic obstructive pulmonary disease (Acute) Patient denies this diagnosis and I could not find any formal PFTs to support the diagnosis Choledocholithiasis (Acute 10/04/16) 10/04/16 INCREASED LFT'S Adrenal adenoma (Acute) Cholecystitis (Acute) Medical History Viral URI COVID History of PSVT (paroxysmal supraventricular tachycardia) Nausea Fracture of proximal end of right humerus (03/03/19) COPD (chronic obstructive pulmonary disease) TIA (transient ischemic attack) Diverticulitis Surgical History Cholecystectomy (09/03/16) Family History Sister , 85 Cancer Social History Smoking/Tobacco Use Status: Never Second Hand Exposure: Yes Smoking risk assessment performed?: Yes Alcohol Intake: never Substance use type: does not use Household members: none Housing: house Communication Needs: None Pets and animals: Yes Pets and animals: dog(s) Current gender identity: female What is your relationship status?: How often do you talk on the phone with friends or family?: decline to answer How often do you get together with friends or relatives?: decline to answer How often do you attend sikh or tenriism services?: decline to answer Do you belong to any clubs or organized social groups?: decline to answer Panel score (0-1 are the most socially isolated patients): 1 What type of physical activity do you participate in: none Special curtis needs: No Seatbelt use: always 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 UA sample not given yet. Likely admit for TIA Signed out to Dr. Urias at shift-change. Last updated by Aftab Stovall PA at 11/04/23 23:04
--- NOTE | 2023-11-04 21:15 | DI.CT_ITS ---
Exam(s) CT BRAIN NECK CTA EXAM: CT BRAIN NECK CTA CLINICAL HISTORY: slurred speech, coordination deficit, resolved. TECHNIQUE: Imaging Protocol: Axial CT angiography was performed with multi-slice acquisition and mu lti-planar and/or 3D reconstructions. CONTRAST MATERIAL: Intravenous: Omnipaque 350 Contrast volume:structured data in ml COMPARISON: CT CT ABDOMEN PELVIS WO from 12/19/2019 FINDINGS: CTA Neck W: Study interpretation somewhat limited by patient motion artifact. Aortic arch anatomy: The aortic arch anatomy is conventional and there is no significant stenosis at the origin of the great vessels off of the aortic arch. No intimal flap evident. Anterior circulation: Both common carotid arteries ascend with normal luminal diameters. At the level the carotid bulbs and proximal internal carotid arteries there is some calcified plaque evident bilaterally with mild bilateral stenosis at these levels. There does not appear to be a tigh t hemodynamically significant stenosis Posterior circulation: Both vertebral arteries originate in conventional fashion off of the subclavian arteries and there is no obvious stenosis at the origin of the vertebral arteries. Both vertebral arteries exhibit normal luminal diameters within the foramen transversarium. Both vertebral arteries contribute to the formation of the basilar artery at the skull base. Posterior inferior cerebellar arteries come off of the bilateral vertebral arteries at the skull base . CTA Brain W: Anterior circulation: Both internal carotid arteries are patent in the skull base-carotid canals as well as within the cave rnous sinuses. The supraclinoid aspects of the ICAs are patent. Both A1 segments are patent as are the anterior cer ebral arteries and there is no evidence of aneurysm at the level of the anterior communicating artery . Both middle cerebral arteries are patent with no evidence of significant stenosis nor intraluminal th rombus. There also no aneurysms of these vessels. Posterior circulation: The basilar artery ascends in the midline. Distally it gives off patent bilateral superior cerebella r arteries. Above this level the basilar artery terminates as patent bilateral posterior cerebral arteries. There also appears to be a posterior communicating artery on the right side of the [id number]. There is no evidence of aneurysm at the tip of the basilar artery nor elsewhere in the [id number] is. CT BRAIN: There is no evidence of intracranial hemorrhage, mass effect, or shift of midline structures. There are no extra-axial fluid collections. Ventricles are not enlarged or shifted. There are no ring enh ancing lesions in the brain and no abnormal meningeal enhancement. IMPRESSION: 1. There is some calcified plaque at the carotid bifurcations and proximal ICAs bilaterally in the ne ck. Amount of stenosis estimated approximately 20-30 percent bilaterally. 2. Patent vertebral arteries. No intraluminal thrombus nor dissection. 3. Patent intracranial arteries. 4. No evidence of intracranial hemorrhage. No ring enhancing lesions in the brain. No abnormal meni ngeal enhancement. RADIATION DOSE DELIVERED: Total DLP DATA REPOSITORY: All CT scans at this facility are submitted to the National Radiology Data Registry (NRDR) Dose Index Registry (DIR) with the [employer] (ACR). RADIATION OPTIMIZATION: All CT scans at this facility use at least one of these dose optimization te chniques: automated exposure control; mA and/or kV adjustment per patient size (includes targeted exa ms where dose is matched to clinical indication); or iterative reconstruction.
[2023-11-04 21:34] LABS: Lactate 1.2 mmol/L (0.6-1.4)
[2023-11-04 21:35] LABS: Abs Immature Grans 0.07 10^3/uL (0.0-0.06); Absolute Basophil Count 0.06 10^3/uL (0.0-0.2); Absolute Eosinophil Count 0.05 10^3/uL (0.0-0.7); Absolute Lymphocyte Count 1.91 10^3/uL (1.2-3.4); Absolute Neutrophil Count 12.15 10^3/uL (1.2-6.7); Basophils % 0.4; Eosinophils % 0.3; HCT 43.7 % (36.0-46.0); HGB 14.2 g/dL (11.2-15.7); Immature Grans % 0.4; MCH 29.3 pg (27.0-33.0); MCHC 32.5 % (32.0-36.0); MCV 90 fL (80-95); MPV 10.1 fL (8.0-11.0); Monocytes % 10.7; Neutrophils % 76.2; Platelet Count 263 10^3/uL (130-400); RBC 4.85 10^6/uL (3.93-5.22); RDW 14.7 % (11.7-14.6); RDW-SD 48.6 fL; WBC 15.94 10^3/uL (4.4-10.8)
[2023-11-04 21:42] LABS: Absolute Monocyte Count 1.71 10^3/uL (0.1-0.8); ESR 64 mm/hr (0-30)
[2023-11-04 21:51] LABS: Diff Comment Diff Reviewed; RBC Morphology Normal
[2023-11-04 22:02] LABS: ALT 13 U/L (14-59); AST 11 U/L (15-37); Albumin 3.3 g/dL (3.4-5.0); Alkaline Phosphatase 86 U/L (46-116); Anion Gap 9.3 mmol/L (3-11); BUN 10 mg/dL (7-18); Bilirubin, Total 0.9 mg/dL (0.2-1.0); C-Reactive Protein 11.71 mg/dL (<or=0.5); CO2 27.7 mmol/L (21.0-32.0); CREATININE 0.7 mg/dL (0.55-1.02); Chloride 102 mmol/L (98-107); Creatine Kinase 21 U/L (26-192); Estimated GFR 85.23 (mL/min/1.73m2); Glucose 131 mg/dL (74-106); Lipase 43 U/L (16-77); Magnesium 1.9 mg/dL (1.8-2.4); NT-proBNP 290 pg/mL (<300); Potassium 3.9 mmol/L (3.5-5.1); Sodium 139 mmol/L (136-145); Total Protein 7.1 g/dL (6.4-8.2); Troponin I < 50 ng/L (< or =60)
[2023-11-04 22:14] LABS: Procalcitonin < 0.1 ng/mL
[2023-11-04] MEDS: Normal Saline 1,000 ML 1000 ML IV (22:17)
[2023-11-04 22:21] LABS: Ammonia < 10 umol/L (11-32)
[2023-11-04 22:28] LABS: COVID-19 PCR Negative (Negative); Influenza A PCR Negative (Negative); Influenza B PCR Negative (Negative); RSV PCR Negative (Negative)
[2023-11-04 22:29] LABS: Source Nasopharynx
[2023-11-04] MEDS: Omnipaque 350 MG/ML 100 ML BTL IJ (22:40)
[2023-11-04] MEDS: Normal Saline - Diluent 50 ML VIAL IJ (22:41)
--- NOTE | 2023-11-04 23:16 | DI.VRAD_ITS ---
PROCEDURE INFORMATION: Exam: CTA Head With Contrast, Arteriography Exam date and time: 11/04/2023 10:41 PM Age: 83 years old Clinical indication: Other: Slurred speech, coordination deficit, resolved TECHNIQUE: Imaging protocol: Computed tomographic angiography of the head with contrast. Exam focused on the arteries. 3D rendering (Not supervised by radiologist): MIP and/or 3D reconstructed images were created by the technologist. Contrast material: OMNIPAQUE; Contrast volume: 85 ml; Contrast route: INTRAVENOUS (IV); COMPARISON: CT HEAD WO 12/22/2019 3:02 PM FINDINGS: Limited secondary to motion artifact. ANTERIOR CIRCULATION: Right internal carotid artery: Intracranial segment is patent with no significant stenosis. No aneurysm. Right middle cerebral artery: No occlusion or significant stenosis. No aneurysm. Right anterior cerebral artery: No occlusion or significant stenosis. No aneurysm. Left internal carotid artery: Intracranial segment is patent with no significant stenosis. No aneurysm. Left middle cerebral artery: No occlusion or significant stenosis. No aneurysm. Left anterior cerebral artery: No occlusion or significant stenosis. No aneurysm. POSTERIOR CIRCULATION: Right vertebral artery: No occlusion or significant stenosis. No aneurysm. Left vertebral artery: No occlusion or significant stenosis. No aneurysm. Basilar artery: No occlusion or significant stenosis. No aneurysm. Right posterior cerebral artery: No occlusion or significant stenosis. No aneurysm. Left posterior cerebral artery: No occlusion or significant stenosis. No aneurysm. Brain: No definite mass, mass effect, or midline shift. Cerebral ventricles: No ventriculomegaly. Bones/joints: Unremarkable. No acute fracture. Soft tissues: Unremarkable. IMPRESSION: No large vessel stenosis or occlusion. PROCEDURE INFORMATION: Exam: CTA Neck With Contrast Exam date and time: 11/04/2023 10:41 PM Age: 83 years old Clinical indication: Other: Slurred speech, coordination deficit, resolved TECHNIQUE: Imaging protocol: Computed tomographic angiography of the neck with contrast. Exam focused on the cervical segments of the vasculature. 3D rendering (Not supervised by radiologist): MIP and/or 3D reconstructed images were created by the technologist. Contrast material: OMNIPAQUE; Contrast volume: 85 ml; Contrast route: INTRAVENOUS (IV); COMPARISON: CT CHEST WO 11/03/2023 3:20 PM FINDINGS: Limited secondary to motion artifact. Right common carotid artery: No stenosis. No dissection or occlusion. Right internal carotid artery: No stenosis of the extracranial segment. No dissection or occlusion. Right external carotid artery: No occlusion or stenosis of the origin. Left common carotid artery: No stenosis. No dissection or occlusion. Left internal carotid artery: No stenosis of the extracranial segment. No dissection or occlusion. Left external carotid artery: No occlusion or stenosis of the origin. Right vertebral artery: No stenosis. No dissection or occlusion. Left vertebral artery: No stenosis. No dissection or occlusion. Soft tissues: Normal. No significant soft tissue swelling. Bones/joints: No acute fracture. IMPRESSION: No stenosis or occlusion. REFERENCES: NASCET CRITERIA. The degree of stenosis in the cervical segment of the internal carotid artery is based on NASCET criteria. Normal is no stenosis. Mild is less than 50% stenosis. Moderate is 50-69% stenosis. Severe is 70% to 99% stenosis. Total occlusion is no detectable patent lumen. Dictated and Authenticated by: Bandar Haque MD. Ordering:JAMES Ugalde MD
--- NOTE | 2023-11-04 23:50 | ED.PROG_ITS ---
Date of service: 11/04/23 Time of Service: 23:51 Medical Decision Making Patient was signed out to me by my colleague Aftab Stovall. Please refer to his HPI, physical exam, assessment and plan. At time of signout we were waiting on CTA results. On reassessment patient remained stable. No focal neurologic deficits. She feels much better compared to before. Sounds as if she has had about 12 hours of altered mental status, confirmed by family. Still pending urinalysis, CTA negative for acute process. Chest CT scan was recently performed and shows evidence of atelectasis in the left lower lung field, but no focal consolidation. Clinically the patient states that her cough has significantly improved/resolved and she feels much better in that regard. Procalcitonin normal. Lactate normal. With the patient's symptomatology, I am concerned that she may have had a TIA which is resolved. Symptoms do not appear consistent with vertigo. Urinalysis has returned and is normal. No indication for emergent antibiotics at this time. I do feel that the patient would benefit from admission, and MRI. Review of her echo from a few years ago does not show evidence of ASD or VSD. Patient did have some reservations about getting an MRI, but after a long discussion she does feel comfortable now. Patient agrees with plan for admission and MRI. Discussed case with the hospitalist Dr. Barlow. He agrees with the plan. I will place admission orders on his behalf. We we will give full dose aspirin here and atorvastatin. I have extensively reviewed the treatment plan with the patient. I have addressed all patient concerns at this time. I have also discussed the plan with the admitting physic rashard and they agree with the current assessment and plan and have agreed to assume responsibility for the patient. All parties demonstrate verbal understanding and agreement with our assessment and plan at this time. The documentation in this chart was dictated using [employer] dictation software. Please excuse any dictation errors. FINDINGS: Limited secondary to motion artifact. ANTERIOR CIRCULATION: Right internal carotid artery: Intracranial segment is patent with no significant stenosis. No aneurysm. Right middle cerebral artery: No occlusion or significant stenosis. No aneurysm. Right anterior cerebral artery: No occlusion or significant stenosis. No aneurysm. Left internal carotid artery: Intracranial segment is patent with no significant stenosis. No aneurysm. Left middle cerebral artery: No occlusion or significant stenosis. No aneurysm. Left anterior cerebral artery: No occlusion or significant stenosis. No aneurysm. POSTERIOR CIRCULATION Right vertebral artery: No occlusion or significant stenosis. No aneurysm. Left vertebral artery: No occlusion or significant stenosis. No aneurysm. Basilar artery: No occlusion or significant stenosis. No aneurysm. Right posterior cerebral artery: No occlusion or significant stenosis. No aneurysm. Left posterior cerebral artery: No occlusion or significant stenosis. No aneurysm. Brain: No definite mass, mass effect, or midline shift. Cerebral ventricles: No ventriculomegaly. Bones/joints: Unremarkable. No acute fracture. Soft tissues: Unremarkable. IMPRESSION: No large vessel stenosis or occlusion. FINDINGS: Limited secondary to motion artifact. Right common carotid artery: No stenosis. No dissection or occlusion. Right internal carotid artery: No stenosis of the extracranial segment. No dissection or occlusion. Right external carotid artery: No occlusion or stenosis of the origin. Left common carotid artery: No stenosis. No dissection or occlusion. Left internal carotid artery: No stenosis of the extracranial segment. No dissection or occlusion. Left external carotid artery: No occlusion or stenosis of the origin. Right vertebral artery: No stenosis. No dissection or occlusion. Left vertebral artery: No stenosis. No dissection or occlusion. Soft tissues: Normal. No significant soft tissue swelling. Bones/joints: No acute fracture. IMPRESSION: No stenosis or occlusion. REFERENCES: NASCET CRITERIA. The degree of stenosis in the cervical segment of the internal carotid artery is based on NASCET criteria. Normal is no stenosis. Mild is less than 50% stenosis. Moderate is 50- 69% stenosis. Severe is 70% to 99% stenosis. Total occlusion is no detectable patent lumen. Thank you for allowing us to participate in the care of your patient. Dictated and Authenticated by: Bandar Haque MD 11/04/2023 11:15 PM Eastern Time ([place] & [place]) Quality:[facility] Health Related Social Needs: No Data to Display Sign Out Sign Out Data: Sign Out Comment: Pending CTA results for possbile TIA, NIH: O - recent completed PNA tx, may need COPD exacerbation tx. UA sample not given yet. Likely admit for TIA Signed out to Dr. Urias at shift-change. Last updated by Aftab Stovall PA at 11/04/23 23:04 Discharge Plan Disposition Patient Disposition: Admit to [facility] Condition: Good Discharge Details Chief Complaint: CVA/TIA Clinical Impression: Brain TIA Primary Care Provider: Linus Saha ED Provider: Aftab Urias Home Meds and New Rx's Prescriptions: No Action metoprolol tartrate 25 mg tablet 25 mg PO BID Qty: 180 3RF acetaminophen 500 MG tablet 1,000 mg PO daily prn (DME) Aerochamber MV Spacer See Dose Instructions .ROUTE .MEDSUPPLY Qty: 1 0RF Dose Instruction: As directed Rx Instructions: As directed albuterol sulfate [Ventolin HFA] 90 mcg/actuation HFA aerosol inhaler 2 puff IH Q4H PRN (Reason: shortness of breath or wheezing) Qty: 25.5 3RF albuterol sulfate 2.5 mg /3 mL (0.083 %) solution for nebulization 2.5 mg inhalation Q6H PRN (Reason: shortness of breath or wheezing) Qty: 75 0RF
[2023-11-04 23:56] LABS: Bilirubin Negative (Negative); Blood Negative (Negative); Clarity Clear (Clear); Glucose Negative (Negative); Ketones Negative (Negative); Leukocyte Esterase Small (Negative); Nitrite Negative (Negative); Urobilinogen 0.2 mg/dL (Up to 0.2)
--- NOTE | 2023-11-05 | DI.US_ITS ---
Exam(s) US LOWER EXTREMITY VENOUS RT EXAM: US LOWER EXTREMITY VENOUS RT CLINICAL HISTORY: focal warmth, redness, swelling RLE TECHNIQUE: Grayscale, color, and doppler imaging of the deep venous system of the right lower extrem ity was performed. COMPARISON: US ABDOMEN ULTRASOUND (P) from 09/03/2016 FINDINGS: There is no evidence of intraluminal thrombus and there is normal compression and augmentation demons trated within the common femoral vein, femoral vein, and popliteal vein. In the ipsilateral calf the interrogated veins also exhibit normal compression/ augmentation properti es. The ipsilateral saphenofemoral junction is patent. IMPRESSION: 1. No evidence of DVT in the right lower extremity. DATA REPOSITORY:
--- NOTE | 2023-11-05 | DI.MRI_ITS ---
Exam(s) MR BRAIN WO EXAM: MR BRAIN WO CLINICAL HISTORY: acute dysarthria/confusion, resolved. TIA vs CVA TECHNIQUE: Multiplanar multisequence MRI of the brain was performed. COMPARISON: CT CT BRAIN NECK CTA from 11/04/2023 FINDINGS: CEREBRAL PARENCHYMA: There is no evidence of intracranial hemorrhage, mass effect, or shift of midline structures. There are no extra-axial fluid collections. Ventricles are not enlarged or shifted. There is no significant focal signal abnormality in the cerebellar hemispheres nor within the lakia, m idbrain, and thalami. There is no abnormal signal abnormality in the periventricular white matter. There are multiple foci of FLAIR bright signal abnormality in the bilateral white matter ranging up t o 1 cm size. These are not associated with hemorrhage, surrounding edema, nor restricted diffusion o n DWI and most probably related to chronic small vessel ischemic changes. PITUITARY GLAND: No mass nor parasellar abnormality. No obvious abnormality in the cavernous sinuses. FLOW VOIDS: The expected flow void are noted. No evidence of obvious aneurysm nor obvious vascular ma lformation. PARANASAL SINUSES: The visualized paranasal sinuses appear unremarkable. No obvious finding ORBITS: No obvious findings. IMPRESSION: No significant acute intracranial findings on this noninfused MRI scan of the brain. There are multiple foci of signal abnormality in the bilateral periventricular white matter consisten t with sequelae of chronic small vessel disease. There is no evidence of restricted diffusion to suggest acute ischemic event. DATA REPOSITORY:
[2023-11-05 00:01] LABS: Bacteria Few HPF (Negative); C & S Indicated? Yes; Casts Negative LPF (Negative); Crystals Negative HPF (Negative); Epithelial Cells Few HPF (Negative); Mucus Negative (Negative); RBC Negative HPF (0-2)
[2023-11-05] MEDS: Aspirin 325 MG TAB PO (00:01)
[2023-11-05] MEDS: Atorvastatin 40 MG TAB PO (00:01)
[2023-11-05 00:54] VITALS: BP 148/66; PULSE 69; RESP 15; TEMP 36.6; O2SAT 97
[2023-11-05 00:59] LABS: Troponin I < 50 ng/L (< or =60)
[2023-11-05 03:42] VITALS: O2SAT 92
--- NOTE | 2023-11-05 05:23 | W.PM.HP.N ---
Date of service: 11/17/23 Time of Service: 05:23 Assessment and Plan Assessment and plan (1) Brain TIA: Status: Acute Assessment and plan: Patient admitted for TIA vs CVA. CTA reassuring. Her current exam is benign. The time of onset of her symptoms is a little unclear, but she is back to her baseline now. MRI pending. She is anxious about it so I did order prn 0.5mg lorazepam Echo pending with bubble study Cardiac monitoring She is on ASA and statin now. (2) Consolidation of left lower lobe of lung: Status: Acute Assessment and plan: SHe has persistent consolidation and productive cough after treatment for pneumonia. Dr. Rodríguez consulted and is ordering evaluation for atypical infection, though this may just be mucous plugging. Plan to repeat CXR tomorrow or as an outpatient. (3) Essential hypertension: Status: Acute Assessment and plan: BP okay, continue outpatient medication, which is just metoprolol (4) Other elevated white blood cell count: Status: Acute Assessment and plan: WBC, ESR, CRP all high. I think this is likely the pulmonary consolidation. U/a is slightly off, but she isn't symptomatic with urine. Ruling out DVT as well. Oddly breast cancer is on her list but not documented in notes and patient denies (5) Chronic obstructive pulmonary disease: Status: Acute Assessment and plan: Not formally diagnosed but likely per Dr. Rodríguez, who is adding controller inhalers to improve mucous clearance. (6) Right leg swelling: Status: Acute Assessment and plan: Focal warmth and edema in RLE, with inflammatory markers she should have a doppler. (7) Diabetes mellitus: Assessment and plan: on her list, but levels in the past 3 years have been only in predm and recently normal range not on medicaiton, so she is in remission. (8) DVT prophylaxis: Status: Acute Assessment and plan: LMWH (9) Discharge planning issues: Status: Acute Assessment and plan: SHe is anxious to go home after stroke work up. Will need outpatient cardiac monitoring and follow up on pulmonary testing. History of Present Illness History of Present Illness Chief Complaint: garbled speach, confusion Narrative: 83 yo F with history of COPD recently treated for pneumonia, history of TIA in 2016 not on medical therapy, and hypertension who presented last night after her family noted garbled speech and confusion. Ms. Youssef reports she woke up at 6am on 11/03 and she felt off. She had some slight headache and nausea and felt cloudy headed. She states she had poor balance and needed her walker, but this happens frequently to her. She wasn't able to eat lunch, and slept most of the afternoon per her report. She states she was feeling better and ate dinner, but then got worse again. Around 6pm, she talked with her daughter who noted she was confused and slurring her speech. EMS was called. By the time she arrived in the emergency room, her symotms had resolved. She has a history of admission for TIA in 06/2016. She had dysarthria and ataxia as presenting sympotms then. She has not been taking statins or antiplatelet agents. Also of note, she has had several visits to urgent care, ED, and PCP with a pneumonia in the past month. This was after COVID in July. She got better after the course of amox/azithro but in the past week she has had incrased sputum and cough again. She is using the albuterol inhaler a couple times a day, which helps loosen her lungs, but she felt like the nebulizer made it worse. Review of Systems Constitutional Constitutional: Denies anorexia, Denies chills, Reports fatigue, Denies fever(s), Denies headache(s), Reports poor appetite (appetite good this morning), Denies weight gain and Reports weight loss Eyes Eyes: Denies change in vision and Denies irritation Comments: thinks she needs new glasses, which makes her dizzy at times ENT Ears, Nose, Mouth, and Throat: Reports change in voice (in addition to garbled speech, voice more raspy since using albuterol), Denies dysphagia, Denies vertigo, Denies headache(s), Denies nasal congestion, Denies nasal discharge and Denies sore throat Cardiovascular Cardiovascular: Denies chest pain, Reports pedal edema (right), Denies palpitations and Reports orthopnea (sleeps in recliner) Respiratory Respiratory: Reports change in phlegm color, Reports cough, Denies hemoptysis, Reports excessive phlegm production and Denies wheezing Gastrointestinal Gastrointestinal: Denies abdominal pain, Reports melena, Denies dysphagia, Denies heartburn, Denies diarrhea, Denies loose stools and Denies vomiting Genitourinary Genitourinary: Denies hematuria, Denies dysuria and Denies urinary incontinence Musculoskeletal Musculoskeletal: Reports abnormal gait Comments: has meniscal injury right knee Integumentary/Breasts Skin/Breast: Denies rash and Denies skin ulcer Neurologic Neurologic: Reports as per HPI, Denies abnormal movements, Reports abnormal gait, Denies vertigo, Denies headache(s), Denies localized weakness, Denies memory loss, Denies convulsions, Denies sensory deficit and Denies tremor(s) Psychiatric Psychiatric: Denies memory loss and Denies mood swings Endocrine Endocrine: Reports fatigue and Denies palpitations Hematologic/Lymphatic Hematologic/Lymphatic: Denies easy bleeding Allergic/Immunologic Allergic/Immunologic: Denies wheezing PFSH All Active Problems (Updated 11/05/23 @ 08:59 by Tg Baldwin MD) Emphysema lung (Acute) Discharge planning issues (Acute) DVT prophylaxis (Acute) Right leg swelling (Acute) Consolidation of left lower lobe of lung (Acute) Brain TIA (Acute) Pneumonia (Acute) SOB (shortness of breath) (Acute) Grief reaction (Chronic) suicide of Adjustment disorder with anxious mood (Acute) Tremulousness (Acute) Essential hypertension (Acute) Obesity (Chronic) Chronic obstructive pulmonary disease with hypoxia (Acute) UTI (urinary tract infection) (Acute) Protein-calorie malnutrition, moderate (Acute) Weakness of both lower extremities (Acute) Excessive cerumen in both ear canals (Acute) Hiatal hernia (Acute) Vertigo (Acute) Dizziness of unknown etiology (Acute) Traumatic hematoma of abdominal wall with infection (Acute) Malignant neoplasm of breast (female), unspecified site (Acute) LEFT BREAST (Note patient denies any history of breast cancer. She says she has had a spot on her left breast that is been there for 45 years and she declines to have any mammogram or work-up) Essential hypertension (Acute 04/04/12) Nausea (Acute) Abdominal wall hematoma (Acute) Other elevated white blood cell count (Acute) Abdominal wall bulge (Acute) Allergy (Acute) Phlegm in throat (Acute) Cough (Chronic) reactive/inflammatory Chronic cough (Chronic) sounds/looks allergic Elevated TSH (Chronic) Uncomplicated asthma (Acute 04/04/12) Transient cerebral ischemia (Acute 06/22/16) * NORMAL HEAD CT; [facility] 06/22/16 Increased body mass index (Chronic) History of tobacco use (Acute) Grief reaction (Acute) of son Chronic obstructive pulmonary disease (Acute) Patient denies this diagnosis and I could not find any formal PFTs to support the diagnosis Choledocholithiasis (Acute 10/04/16) 10/04/16 INCREASED LFT'S Adrenal adenoma (Acute) Cholecystitis (Acute) Medical History Diabetes mellitus COVID Viral URI History of PSVT (paroxysmal supraventricular tachycardia) Nausea Fracture of proximal end of right humerus (03/03/19) COPD (chronic obstructive pulmonary disease) TIA (transient ischemic attack) Diverticulitis Surgical History Cholecystectomy (09/03/16) Family History Sister , 85 Cancer Social History Smoking/Tobacco Use Status: Former Tobacco Use Quit Date: 12/14/88 Tobacco: How many years used: 35 Second Hand Exposure: Yes Smoking risk assessment performed?: Yes Alcohol Intake: never Substance use type: does not use Household members: none Housing: house Communication Needs: None Pets and animals: Yes Pets and animals: dog(s) Current gender identity: female What is your relationship status?: How often do you talk on the phone with friends or family?: decline to answer How often do you get together with friends or relatives?: decline to answer How often do you attend restorationism or mormonism services?: decline to answer Do you belong to any clubs or organized social groups?: decline to answer Panel score (0-1 are the most socially isolated patients): 1 What type of physical activity do you participate in: none Special curtis needs: No Seatbelt use: always Drive intox or ride w/intox helper driver: No Do you feel safe at home: Yes Do you feel safe in your relationship?: Yes Additional Social history: Lives in her own apartment in [facility], . Two children have apartments in the same house Meds Allergies and Home Medications Allergies Allergy/AdvReac Type Severity Reaction Status Date / Time codeine AdvReac Severe GI UPSET Verified 11/04/23 21:42 omeprazole AdvReac Other (See Verified 11/04/23 21:42 Comment) Edward AdvReac Severe Nausea Uncoded 11/04/23 21:42 Home Medications Medication Instructions Recorded Confirmed Type acetaminophen 500 mg tablet 1,000 mg PO daily prn 05/01/16 11/04/23 History inhalational spacing device #1 ea 11/06/22 11/04/23 Rx (Aerochamber MV spacer) metoprolol tartrate 25 mg tablet 25 mg PO BID #180 tab-caps 04/06/23 11/04/23 Rx albuterol sulfate 90 mcg/actuation 2 puff inhalation Q4H PRN 10/06/23 11/04/23 Rx aerosol inhaler (Ventolin HFA) shortness of breath or wheezing #25.5 grams albuterol sulfate 2.5 mg/3 mL 2.5 mg (3 mL) inhalation Q6H PRN 10/16/23 11/04/23 Rx (0.083 %) solution for nebulization shortness of breath or wheezing #75 mL Exam Narrative Exam Narrative: GEN: Alert and oriented x 3, pleasant and cooperative, gives a full history but somewhat tangential. No acute distress at rest. HEENT: Head atraumatic. Conjunctiva clear, no icterus. PEERL, EOMI. no rhinorrhea. MMM, OP benign. Neck is supple with no masses or lymphadenopathy, trachea midline LUNGS: Good air movement throughout, deminished just in left base. no rales or wheezes. normal effort CV: RRR with no murmurs, gallops, or rubs. ABD: +BS, soft, NT/ND, no masses EXT: no cyanosis, clubbing, or edema on left. On right 1-2+ edema in foot and ankle to the gamez, warm and pink with some hemosiderin deposits. mildly tender, no cords MSK: No joint redness or swelling including left knee. NEURO: CN 2-12 grossly intact. Normal FNF. Negative pronator drift. Normal voice. Normal strength and sensation of 4 extremities. DTRs 3+ but equal melchor at patella SKIN: No rashes or open wounds. PSYCH: normal mood and affect, normal thought process Results Imaging CT scan - chest: report reviewed (11/03/23: Consolidation left lower lobe with near complete atelectasis. No underlying mass is visible on this examination. ) EKG: report reviewed and image reviewed (Sinus tachy, nl axix, intervals. Low voltage with <1mm ST depression in V5-6 and 2, no significant change form 10/16/23 except rate. ) Imaging Studies: CTA Head and Neck: No large vessel stenosis or occlusion. CT HEAD w/o: Limited by motion artifact Labs 11/04/23 21:15 11/04/23 21:15 Labs: Laboratory Results - last 24 hr 11/04/23 11/04/23 11/04/23 21:15 21:35 21:40 WBC 15.94 H RBC 4.85 Hgb 14.2 Hct 43.7 MCV 90 MCH 29.3 MCHC 32.5 RDW 14.7 H Plt Count 263 MPV 10.1 Immature Gran % 0.4 Neutrophils % 76.2 Lymphocytes % 12.0 Monocytes % 10.7 Eosinophils % 0.3 Basophils % 0.4 Nucleated RBC % 0.0 Absolute Neutrophils 12.15 H Absolute Lymphocytes 1.91 Absolute Monocytes 1.71 H Absolute Eosinophils 0.05 Absolute Basophils 0.06 RBC Morphology Normal ESR 64 H VBG Lactate 1.2 Sodium 139 Potassium 3.9 Chloride 102 Carbon Dioxide 27.7 Anion Gap 9.3 BUN 10 Creatinine 0.7 Est GFR (CKD-EPI 2020) 85.23 Glucose 131 H Calcium 9.0 Magnesium 1.9 Total Bilirubin 0.9 AST 11 L ALT 13 L Alkaline Phosphatase 86 Ammonia < 10 L Creatine Kinase 21 L Troponin I < 50 C-Reactive Protein 11.71 H NT-Pro-B Natriuret Pep 290 Total Protein 7.1 Albumin 3.3 L Lipase 43 Procalcitonin < 0.1 Urine Color Urine Clarity Urine pH Ur Specific [place] Urine Protein Urine Ketones Urine Blood Urine Nitrite Urine Bilirubin Urine Urobilinogen Ur Leukocyte Esterase Urine RBC Urine WBC Ur Epithelial Cells Urine Crystals Urine Bacteria Urine Casts Urine Mucus Ur Culture Indicated? Urine Glucose COVID-19 Source Nasopharynx SARS-CoV-2 (PCR) Negative Influenza Type A (PCR) Negative Influenza Type B (PCR) Negative RSV (PCR) Negative 11/04/23 11/05/23 23:53 00:31 WBC RBC Hgb Hct MCV MCH MCHC RDW Plt Count MPV Immature Gran % Neutrophils % Lymphocytes % Monocytes % Eosinophils % Basophils % Nucleated RBC % Absolute Neutrophils Absolute Lymphocytes Absolute Monocytes Absolute Eosinophils Absolute Basophils RBC Morphology ESR VBG Lactate Sodium Potassium Chloride Carbon Dioxide Anion Gap BUN Creatinine Est GFR (CKD-EPI 2020) Glucose Calcium Magnesium Total Bilirubin AST ALT Alkaline Phosphatase Ammonia Creatine Kinase Troponin I < 50 C-Reactive Protein NT-Pro-B Natriuret Pep Total Protein Albumin Lipase Procalcitonin Urine Color Yellow Urine Clarity Clear Urine pH 6.0 Ur Specific [place] 1.010 Urine Protein Negative Urine Ketones Negative Urine Blood Negative Urine Nitrite Negative Urine Bilirubin Negative Urine Urobilinogen 0.2 Ur Leukocyte Esterase Small H Urine RBC Negative Urine WBC 5-10 Ur Epithelial Cells Few Urine Crystals Negative Urine Bacteria Few Urine Casts Negative Urine Mucus Negative Ur Culture Indicated? Yes Urine Glucose Negative COVID-19 Source SARS-CoV-2 (PCR) Influenza Type A (PCR) Influenza Type B (PCR) RSV (PCR) Last Vital Signs Temp 36.6 C 11/05/23 00:54 Pulse 69 11/05/23 00:54 Resp 15 11/05/23 00:54 BP 148/66 H 11/05/23 00:54 Pulse Ox 92 11/05/23 03:42 Time Spent Time spent with Patient: >75 minutes Time was spent: preparing to see the patient(eg.review tests), obtaining and/or reviewing separately otained hiistory, ordering medications,tests, procedures, referring, communicating with other health medicare biller, indepentently interpreting results, counseling the patient and care coordination
[2023-11-05 07:34] LABS: Calculated LDL 91 mg/dL (<100); Cholesterol 163 mg/dL (<200); HDL Cholesterol 57 mg/dL (40-60); Triglyceride 76 mg/dL (<150)
[2023-11-05 07:38] VITALS: BP 104/67; PULSE 94; RESP 18; TEMP 37.2; O2SAT 94
--- NOTE | 2023-11-05 07:50 | PUCON_ITS ---
General Date Of Service Date of service: 11/05/23 Time of Service: 07:50 Reason for Consult: Abnormal chest CT Assessment and Plan Assessment and plan (1) Consolidation of left lower lobe of lung: Status: Acute (2) Emphysema lung: Status: Acute Assessment and plan: This is a 83 yo admitted for possible TIA but with abnormal chest imaging in the setting of a recent pneumonia diagnosis. The LLL consolidation on chest imaging is dense with air bronchograms. She has received broad coverage for a possible bacterial pneumonia. Her procalcitonin is negative and her neutrophil to lymphocyte ratio is non concerning. Her vital signs are also very reassuring. I do not think this represents a bacterial infectious process at this time. That being said, we will culture her sputum, since she is having production. Other possible differentials include a non-bacterial infectious process (such as a fungal pnuemonia - although she has no clear risk factors for more opportunistic infections), inflammatory process (possible organizing pnuemonia) or possible severe mucus plugging. I did briefly discuss that sometimes bronchoscopy is used to aid in the diagnostic process, however she was very adamently against any invasive procedure. In her case, I do agree that the risks likely outweigh the benefits. I will non-invasively rule out fungal infections and simultaneously work on aggressive airway clearance as well as starting her on a maintenance inhaler. I will have her get a repeat CXR next week to see if there has been any improvement. We will also see her in follow up for this issue. LLL consolidation - fungitell, urine histo and blasto - Acapella, incentive spirometer - Duonebs tid - Mucinex 1200mg bd - repeat CXR next week - I have ordered - fu in pulm at outpatient Emphysema - start Stiolto - prn albuterol - unable to tolerate spirometry History of Present Illness Narrative: This is a 83 yo admitted for a possible TIA whom I was consulted for an abnormal chest CT. She developed symptoms of pneumonia including dyspnea and productive cough in September which prompted a CXR which was normal. Her symptoms continued and was given a doxycycline prescription at urgent care. She did not take this out of side effect of concerns. The continued to worsen, prompting an ED visit where a CXR found a LLL infiltrate. She was treated with azithromycin and Augmentin. At a PCP follow up she clinically seemed to be improving but a follow up CXR found no change in the LLL consolidation. Although she presented to the ED this time for a different purpose, a chest CT was obtained and finds a dense LLL consolidation with air bronchograms. The LLL take off does appear to be at least partially obstructed, likely by mucus, but this is hard to determine. She complains of productive cough, in addition to wobbly-ness, nausea and fatigue. She has a 72 pack year smoking history and quit in 1988. She has never been formally tested for PFT's, but states she tried once but could not tolerate wearing the nose clip so did not complete them. Review of Systems All systems reviewed & are unremarkable except as noted in HPI and below PFSH All Active Problems (Updated 11/05/23 @ 08:59 by Tg Baldwin MD) Emphysema lung (Acute) Discharge planning issues (Acute) DVT prophylaxis (Acute) Right leg swelling (Acute) Consolidation of left lower lobe of lung (Acute) Brain TIA (Acute) Pneumonia (Acute) SOB (shortness of breath) (Acute) Grief reaction (Chronic) suicide of Adjustment disorder with anxious mood (Acute) Tremulousness (Acute) Essential hypertension (Acute) Obesity (Chronic) Chronic obstructive pulmonary disease with hypoxia (Acute) UTI (urinary tract infection) (Acute) Protein-calorie malnutrition, moderate (Acute) Weakness of both lower extremities (Acute) Excessive cerumen in both ear canals (Acute) Hiatal hernia (Acute) Vertigo (Acute) Dizziness of unknown etiology (Acute) Traumatic hematoma of abdominal wall with infection (Acute) Malignant neoplasm of breast (female), unspecified site (Acute) LEFT BREAST (Note patient denies any history of breast cancer. She says she has had a spot on her left breast that is been there for 45 years and she declines to have any mammogram or work-up) Essential hypertension (Acute 04/04/12) Nausea (Acute) Abdominal wall hematoma (Acute) Other elevated white blood cell count (Acute) Abdominal wall bulge (Acute) Allergy (Acute) Phlegm in throat (Acute) Cough (Chronic) reactive/inflammatory Chronic cough (Chronic) sounds/looks allergic Elevated TSH (Chronic) Uncomplicated asthma (Acute 04/04/12) Transient cerebral ischemia (Acute 06/22/16) * NORMAL HEAD CT; [facility] 06/22/16 Increased body mass index (Chronic) History of tobacco use (Acute) Grief reaction (Acute) of son Chronic obstructive pulmonary disease (Acute) Patient denies this diagnosis and I could not find any formal PFTs to support the diagnosis Choledocholithiasis (Acute 10/04/16) 10/04/16 INCREASED LFT'S Adrenal adenoma (Acute) Cholecystitis (Acute) Medical History Diabetes mellitus COVID Viral URI History of PSVT (paroxysmal supraventricular tachycardia) Nausea Fracture of proximal end of right humerus (03/03/19) COPD (chronic obstructive pulmonary disease) TIA (transient ischemic attack) Diverticulitis Surgical History Cholecystectomy (09/03/16) Family History Sister , 85 Cancer Social History Smoking/Tobacco Use Status: Former Tobacco Use Quit Date: 12/14/88 Tobacco: How many years used: 35 Second Hand Exposure: Yes Smoking risk assessment performed?: Yes Alcohol Intake: never Substance use type: does not use Household members: none Housing: house Communication Needs: None Pets and animals: Yes Pets and animals: dog(s) Current gender identity: female What is your relationship status?: How often do you talk on the phone with friends or family?: decline to answer How often do you get together with friends or relatives?: decline to answer How often do you attend shinto or religion services?: decline to answer Do you belong to any clubs or organized social groups?: decline to answer Panel score (0-1 are the most socially isolated patients): 1 What type of physical activity do you participate in: none Special curtis needs: No Seatbelt use: always Drive intox or ride w/intox courtesy car driver: No Do you feel safe at home: Yes Do you feel safe in your relationship?: Yes Additional Social history: Lives in her own apartment in [facility], . Two children have apartments in the same house Visit Medication and Allergies Active Medications Generic Name Dose Route Start Last Admin Trade Name Freq PRN Reason Stop Dose Admin Acetaminophen 1,000 mg 11/05/23 06:00 11/05/23 07:29 Acetaminophen 500 Mg Tab PO Not Given daily prn LUCY Albuterol Sulfate 2.5 mg 11/05/23 05:12 Albuterol 2.5 Mg/3 Ml Inh Soln Vial IH Q6H PRN shortness of breath or wheezing Albuterol Sulfate 2 puff 11/05/23 07:15 Albuterol Hfa 8 Gm 60 Puff Inh IH Q4H PRN PRN shortness of breath or wheezin Aspirin 81 mg 11/05/23 08:30 Aspirin E.C. 81 Mg Tabec PO DAILY [facility] Atorvastatin Calcium 40 mg 11/05/23 20:00 Atorvastatin 40 Mg Tab PO QPM LUCY Device 1 each 11/05/23 06:00 Inhaler, Assist Device MC DIRECTED [facility] IV Miscellaneous Supplies 1 each 11/04/23 23:45 Iv Access-Emergency Dept IV DIRECTED [facility] Iohexol 100 ml 11/04/23 22:45 11/04/23 22:40 Omnipaque 350 Mg/Ml 100 Ml Btl IJ 12/04/23 23:59 100 ml DIRECTED LUCY Administration Lorazepam 0.5 mg 11/05/23 05:13 Lorazepam 2 Mg/Ml Vial IVP ONCE PRN Anxiety Metoprolol Tartrate 25 mg 11/05/23 08:30 Metoprolol 12.5 Mg Tab PO BID LUCY Sodium Chloride 50 ml 11/04/23 22:45 11/04/23 22:41 Normal Saline - Diluent 50 Ml Vial IJ 50 ml .FOR DI USE LUCY Administration Sodium Chloride 0 ml 11/04/23 23:47 Normal Saline Flush 10 Ml Syr IVP PRN PRN Sodium Chloride 0 ml 11/05/23 08:30 Normal Saline Flush 10 Ml Syr IVP BID LUCY Sodium Chloride 0 ml 11/04/23 23:47 Normal Saline 10 Ml Vial IJ DIRECTED PRN Allergies codeine Adverse Reaction (Severe, Verified 11/04/23 21:42) GI UPSET omeprazole Adverse Reaction (Verified 11/04/23 21:42) Other (See Comment) Edward Adverse Reaction (Severe, Uncoded 11/04/23 21:42) Nausea Exam Narrative Exam Narrative: Gen: NAD, normal respiratory effort, well-nourished HENT: PERRL Chest: No respiratory distress, normal appearance of chest, clear to auscultation bilaterally, no crackles or wheezes, normal inspiratory effort Heart: regular rate and rhythym, no murmurs, rubs or gallops Abdomen: Non-distended, soft, non tender Extremities: No clubbing, + LE edema, no cyanosis or rashes Neuro: AAOx3 , non focal Psych: cooperative, appropriate mental affect Results Last Vital Signs Temp 37.2 C 11/05/23 07:38 Pulse 94 H 11/05/23 07:38 Resp 18 11/05/23 07:38 BP 104/67 11/05/23 07:38 Pulse Ox 94 11/05/23 07:38 Labs 11/04/23 21:15 11/04/23 21:15 Labs: Laboratory Results - last 24 hr 11/04/23 11/04/23 11/04/23 21:15 21:35 21:40 WBC 15.94 H RBC 4.85 Hgb 14.2 Hct 43.7 MCV 90 MCH 29.3 MCHC 32.5 RDW 14.7 H Plt Count 263 MPV 10.1 Immature Gran % 0.4 Neutrophils % 76.2 Lymphocytes % 12.0 Monocytes % 10.7 Eosinophils % 0.3 Basophils % 0.4 Nucleated RBC % 0.0 Absolute Neutrophils 12.15 H Absolute Lymphocytes 1.91 Absolute Monocytes 1.71 H Absolute Eosinophils 0.05 Absolute Basophils 0.06 RBC Morphology Normal ESR 64 H VBG Lactate 1.2 Sodium 139 Potassium 3.9 Chloride 102 Carbon Dioxide 27.7 Anion Gap 9.3 BUN 10 Creatinine 0.7 Est GFR (CKD-EPI 2020) 85.23 Glucose 131 H Hemoglobin A1c Calcium 9.0 Magnesium 1.9 Total Bilirubin 0.9 AST 11 L ALT 13 L Alkaline Phosphatase 86 Ammonia < 10 L Creatine Kinase 21 L Troponin I < 50 C-Reactive Protein 11.71 H NT-Pro-B Natriuret Pep 290 Total Protein 7.1 Albumin 3.3 L Triglycerides Total Cholesterol LDL Cholesterol, Calc HDL Cholesterol Lipase 43 Procalcitonin < 0.1 Urine Color Urine Clarity Urine pH Ur Specific [place] Urine Protein Urine Ketones Urine Blood Urine Nitrite Urine Bilirubin Urine Urobilinogen Ur Leukocyte Esterase Urine RBC Urine WBC Ur Epithelial Cells Urine Crystals Urine Bacteria Urine Casts Urine Mucus Ur Culture Indicated? Urine Glucose COVID-19 Source Nasopharynx SARS-CoV-2 (PCR) Negative Influenza Type A (PCR) Negative Influenza Type B (PCR) Negative RSV (PCR) Negative 11/04/23 11/05/2311/04/24 23:53 00:31 07:10 WBC RBC Hgb Hct MCV MCH MCHC RDW Plt Count MPV Immature Gran % Neutrophils % Lymphocytes % Monocytes % Eosinophils % Basophils % Nucleated RBC % Absolute Neutrophils Absolute Lymphocytes Absolute Monocytes Absolute Eosinophils Absolute Basophils RBC Morphology ESR VBG Lactate Sodium Potassium Chloride Carbon Dioxide Anion Gap BUN Creatinine Est GFR (CKD-EPI 2020) Glucose Hemoglobin A1c 6.0 H Calcium Magnesium Total Bilirubin AST ALT Alkaline Phosphatase Ammonia Creatine Kinase Troponin I < 50 C-Reactive Protein NT-Pro-B Natriuret Pep Total Protein Albumin Triglycerides 76 Total Cholesterol 163 LDL Cholesterol, Calc 91 HDL Cholesterol 57 Lipase Procalcitonin Urine Color Yellow Urine Clarity Clear Urine pH 6.0 Ur Specific [place] 1.010 Urine Protein Negative Urine Ketones Negative Urine Blood Negative Urine Nitrite Negative Urine Bilirubin Negative Urine Urobilinogen 0.2 Ur Leukocyte Esterase Small H Urine RBC Negative Urine WBC 5-10 Ur Epithelial Cells Few Urine Crystals Negative Urine Bacteria Few Urine Casts Negative Urine Mucus Negative Ur Culture Indicated? Yes Urine Glucose Negative COVID-19 Source SARS-CoV-2 (PCR) Influenza Type A (PCR) Influenza Type B (PCR) RSV (PCR)
[2023-11-05] MEDS: Aspirin E.C. 81 MG TABEC PO (09:08)
[2023-11-05] MEDS: Metoprolol 12.5 MG TAB 25 MG PO (09:08)
[2023-11-05] MEDS: Normal Saline Flush 10 ML SYR IVP (09:09)
[2023-11-05 09:16] VITALS: BP 150/63
[2023-11-05 09:32] VITALS: PULSE 91; RESP 14; RESP 9; O2SAT 92
[2023-11-05] MEDS: Tiotropium/Olodaterol 10 PUFF INHALER 2 PUFF IH (09:32)
[2023-11-05] MEDS: Albuterol/Ipratropium 3 ML UPD VIAL UPD (09:32)
[2023-11-05 09:43] VITALS: PULSE 87
--- NOTE | 2023-11-05 10:20 | DI.US_ITS ---
APPROVED REPORT EXAM: Comprehensive 2D, Doppler, and color-flow Echocardiogram Patient Location: In-Patient Room/Bed: [facility] [employer] Lieutenant: Scott Hanks RDCS (AE) Indications: Acute TIA vs CVA Echo Enhancing Agent Indication: Rule out Shunt Agent(s) / Amount(s) Used: Agitated Saline 30.0 cc Comments: Contrast study was performed with 3 IV injections of 10ccs of agitated normal saline, at [facility], with cough and post valsalva maneuver. Negative contrast study for shunt flow. Conclusion Normal left ventricular wall thickness and chamber size. EF is 50-55%. Wall motion is normal Normal right ventricular size and function Both atria are mildly dilated There is no shunt identified on injection of agitated saline There are no structural valvular abnormalities Mild mitral regurgitation Wall motion Left Ventricle The left ventricle is normal size. Left ventricular systolic function is normal There is normal left ventricular wall thickness. No segmental wall motion abnormalities There is no ventricular septal def ect visualized. LVEF is 50-55%. Right Ventricle The right ventricle is normal size. Right ventricular systolic function is grossly normal. Atria Left atrium is mildly dilated. Right atrium is mildly dilated. Saline bubble contrast intravenous inj ection does not demonstrate PFO. Aortic Valve The aortic valve is normal in structure. Aortic valve is trileaflet. There is no aortic valvular sten osis. No aortic regurgitation is present. Mitral Valve The mitral valve is normal in structure. No evidence of mitral valve stenosis. Mild mitral regurgitat ion. Tricuspid Valve The tricuspid valve is normal in structure. There is no tricuspid valve stenosis. Trace tricuspid reg urgitation. Unable to assess PA pressure. Pulmonic Valve The pulmonary valve is normal in structure. There is no pulmonic valvular stenosis. There is no pulmo lopez valvular regurgitation. Great Vessels The aortic root is normal in size. The ascending aorta is normal in size. IVC is normal in size and c ollapses >50% with inspiration. Pericardium There is no pericardial effusion. 2D Dimensions IVSD d PLAX 0.83 cm F: 0.6-1.0 Ao Root d 2.77 cm F: 2.7 - 3.3 LVPW d PLAX 0.79 cm F: 0.6 - 1.0 Ao Asc Diam d 2.96 cm F: 2.3 - 3.1 LVID d PLAX 5.41 cm F: 3.8 - 5.2 LV EDV (Teich) 141.7 mL M-Mode TAPSE 2.95 cm (M/F) >1.7 Auto EF LV EDV A4C 76.3 mL LV EDV A2C 84.0 mL LV EDV BP 80.5 mL LV ESV A4C 38.6 mL LV ESV A2C 42.1 mL LV ESV BP 39.6 mL LVEF(%) A4C 49.4 % LVEF(%) A2C 49.9 % LVEF(%) BP 50.8 % LV SV A4C 37.7 ml LV SV A2C 41.9 ml LV SV BP 40.9 ml LV CO A4C 3.1 L/min LV CO A2C 3.3 L/min LV CO BP 3.2 L/min HR A4C 82.20 BPM HR A2C 79.44 BPM LV EDV Index (BP) LA Volume LA Length A4C 4.2 cm LA Length A2C 4.5 cm LA Area A4C s 12.12 cm2 LA Area A2C s 15.34 cm2 LA Vol A4C A-L 29.78 mL LA Vol A2C A-L 44.07 mL LA Vol Biplane A-L 37.7 mL LA Vol/BSA A4C A-L LA Vol/BSA A2C A-L LA Vol/BSA BP A-L 20.9 mL/m2 LA Vol A4C MOD 27.5 mL LA Vol A2C MOD 40.4 mL LA Vol BP MOD 34.5 mL RA Volume RA Area A4C 10.0 cm2 RA ESV A4C (A-L) 22.6mL RA Vol/BSA A4C A-L RA Length A4C 3.8 cm RA ESV A4C (MOD) 21.1mL LV Diastology MV E' medial 0.084 (>0.07 m/s) MV E Vmax 0.75 (0.4-1.3 m/s) MV E/E' MED 8.95 (<14) MV A Vmax 0.90 (0.4-1.3 m/s) MV E' lateral 0.090 (>0.1 m/s) E/A Ratio 0.8 MV E/E' LAT 8.37 (<14) MV E' Average 0.087 m/s MV E/E'(average) 8.65 Aortic Valve AoV Vmax 1.56 m/s LVOT Vmax 0.80 m/s AoV Peak Grad 9.7 mmHg LVOT Peak Grad 2.6 mmHg AoV Area (Vmax) 1.43 cm2 LVOT VTI 0.186 m AoV VTI 0.330 m LVOT Mean Grad 1.3 mmHg AoV Mean Silvano. 0.97 m/s LVOT SV 52.01 mL AoV Mean Grad 4.5 mmHg LVOT Diam s 1.85 cm AoV Area (VTI) 1.57 cm2 Velocity Ratio 0.51 Mitral Valve MV DT 180 (160-240 msec) Pulmonary Valve PV Vmax 0.81 (0.5-1.5 m/s) RVOT Vmax 0.72 m/s PV Peak Grad 2.6 mmHg RVOT Peak Gr. 2.1 mmHg PV Mean Silvano 0.61 m/s RVOT VTI 0.155 m PV Mean Grad 1.6 mmHg RVOT Mean Gr. 1.4 mmHg
[2023-11-05] MEDS: LORazepam 2 MG/ML VIAL 0.5 MG IVP (11:01)
--- NOTE | 2023-11-05 11:29 | INITIAL_ITS ---
Date of service: 11/05/23 Time of Service: 12:04 Care Management Initial Assmt Initial Assessment REASON FOR HOSPITALIZATION:: TIA PREVIOUS FUNCTIONAL STATUS/SOCIAL/FAMILY SUPPORTS:: Heavenly lives in [place], alone. Her of 64 years in 2021, unexpectedly. She has two daughters, Em and Sada; she also had a son who . Heavenly lives in an apartment on the third floor of her home, which has two other apartments below her, which her two daughters live in. She states that she is very independent at baseline, and feels that the stairs keep her active. She uses a FWW at home and in the community. CURRENT FUNCTIONAL STATUS:: Heavenly was sitting up in her chair when CM met with her. Her daughter, Em was in the room visiting. Heavenly stated that she feels better today. She had an echo, MRI and ultrasound this morning, awaiting results. Per provider, if the results of her testing are clear she will likely be medically cleared for discharge. Heavenly and Em are agreeable to this plan. CM will continue to follow. ADVANCE DIRECTIVES:: On file; Ramón Calle listed as HCA. Charlie Thompson listed as alternate agent. Has patient been provided with info about the portal/API?: Yes Did the patient sign up for the portal?: Yes CODE STATUS:: Full Code INSURANCE COVERAGE / FINANCIAL ISSUES:: MCR. [employer] supplement. CURRENT HOME/COMMUNITY SERVICES/EQUIPMENT:: [facility]WW PRIMARY CARE PHYSICIAN:: Linus Saha POTENTIAL DISCHARGE NEEDS:: Evaluations for further needs, follow up appointments. PATIENT/FAMILY EDUCATION NEEDS:: Review discharge instructions and limitations, discussion of self care needs including ask me three. ANTICIPATED BARRIERS TO DISCHARGE:: None. TRANSPORTATION:: via private vehicle by family. PLAN:: Anticipate Heavenly will return home once medically cleared. She may benefit from new nursing to provide a smooth transition home. Her daughter will drive her home via private vehicle. She will follow up with her PCP and discharge plan of care. CM will continue to follow. [facility] All Active Problems (Updated 11/05/23 @ 08:59 by Tg Baldwin MD) Emphysema lung (Acute) Discharge planning issues (Acute) DVT prophylaxis (Acute) Right leg swelling (Acute) Consolidation of left lower lobe of lung (Acute) Brain TIA (Acute) Pneumonia (Acute) SOB (shortness of breath) (Acute) Grief reaction (Chronic) suicide of Adjustment disorder with anxious mood (Acute) Tremulousness (Acute) Essential hypertension (Acute) Obesity (Chronic) Chronic obstructive pulmonary disease with hypoxia (Acute) UTI (urinary tract infection) (Acute) Protein-calorie malnutrition, moderate (Acute) Weakness of both lower extremities (Acute) Excessive cerumen in both ear canals (Acute) Hiatal hernia (Acute) Vertigo (Acute) Dizziness of unknown etiology (Acute) Traumatic hematoma of abdominal wall with infection (Acute) Malignant neoplasm of breast (female), unspecified site (Acute) LEFT BREAST (Note patient denies any history of breast cancer. She says she has had a spot on her left breast that is been there for 45 years and she declines to have any mammogram or work-up) Essential hypertension (Acute 04/04/12) Nausea (Acute) Abdominal wall hematoma (Acute) Other elevated white blood cell count (Acute) Abdominal wall bulge (Acute) Allergy (Acute) Phlegm in throat (Acute) Cough (Chronic) reactive/inflammatory Chronic cough (Chronic) sounds/looks allergic Elevated TSH (Chronic) Uncomplicated asthma (Acute 04/04/12) Transient cerebral ischemia (Acute 06/22/16) * NORMAL HEAD CT; [facility] 06/22/16 Increased body mass index (Chronic) History of tobacco use (Acute) Grief reaction (Acute) of son Chronic obstructive pulmonary disease (Acute) Patient denies this diagnosis and I could not find any formal PFTs to support the diagnosis Choledocholithiasis (Acute 10/04/16) 10/04/16 INCREASED LFT'S Adrenal adenoma (Acute) Cholecystitis (Acute) Medical History Diabetes mellitus COVID Viral URI History of PSVT (paroxysmal supraventricular tachycardia) Nausea Fracture of proximal end of right humerus (03/03/19) COPD (chronic obstructive pulmonary disease) TIA (transient ischemic attack) Diverticulitis Surgical History Cholecystectomy (09/03/16) Family History Sister , 85 Cancer Social History Smoking/Tobacco Use Status: Former Tobacco Use Quit Date: 12/14/88 Tobacco: How many years used: 35 Second Hand Exposure: Yes Smoking risk assessment performed?: Yes Alcohol Intake: never Substance use type: does not use Household members: none Housing: house Communication Needs: None Pets and animals: Yes Pets and animals: dog(s) Current gender identity: female What is your relationship status?: How often do you talk on the phone with friends or family?: decline to answer How often do you get together with friends or relatives?: decline to answer How often do you attend jain or buddhist services?: decline to answer Do you belong to any clubs or organized social groups?: decline to answer Panel score (0-1 are the most socially isolated patients): 1 What type of physical activity do you participate in: none Special curtis needs: No Seatbelt use: always Drive intox or ride w/intox transportation driver: No Do you feel safe at home: Yes Do you feel safe in your relationship?: Yes Additional Social history: Lives in her own apartment in [place], . Two children have apartments in the same house SDOH(Care Management) Screening Will the Patient Participate in the Screening?: Yes Do you worry about having a steady place to live?: no In the past 12 months, have you had to go without electric, gas, oil or water in your home?: choose not to answer Have you or anyone in your house had to go without enough food to eat?: choose not to answer Has lack of transportation kept you from medical appointments or from doing things needed for daily living?: choose not to answer Has anyone in your support network made you feel unsafe for any reason?: choose not to answer Health Related Social Needs Health related social needs details: none
[2023-11-05] MEDS: Enoxaparin 40 MG/0.4 ML SYR SC (12:24)
[2023-11-05] MEDS: Acetaminophen 500 MG TAB 1000 MG PO (12:32)
--- NOTE | 2023-11-05 13:54 | CHAPLAIN ---
Radha came to the ED last night after noted confusion and garbled speech. She told me today that she's feeling better although she was nervous before her MRI earlier today. She'd had a bad experience with an MRI previously. Radha was visiting with a friend or relative when I stopped in. I explained my role and offered support.
--- NOTE | 2023-11-05 14:06 | PDOC.HHF2F ---
Home Health Referral Home Health Orders Clinical synopsis of why skilled professionals are needed: TIA, left lower lobe consolidation Medical diagnosis necessitation home health referral: routine nursing evaluation, medication oversight, respiratory assessment Registered Nurse: Check all that apply Instruct on new or changed medication(s)/assess compliance: Ordered Assess for exacerbation of medical condition, instruct patient/caregivers on signs and symptoms to report for early detection: Ordered Home Bound Status Requires the aid of supportive device (check all that apply): Walker Describe why leaving home would require a considerable and taxing effort: Confusion Encounter Date and Reason: I certify that a FTF encounter for this patient was performed on November 05, 2023 and that such encounter was related to the primary reason the patient requires home health services. The encounter was conducted in the following manner: By me as the certifying physician, GALLERY MANAGER, PA or By an inpatient physician, GALLERY MANAGER or PA during an inpatient stay who communicated findings to me, Certification And Authentication I certify that I composed the above information based on my clinical judgment relating to this patient's medical condition and, if applicable, clinical findings communicated to me by the NPP or inpatient physician who performed the FTF encounter. Name of Provider that will be monitoring home health services: Linus Saha
--- NOTE | 2023-11-05 14:10 | DSE_ITS ---
Date of service: 11/05/23 Time of Service: 14:10 DS: Diagnosis Discharge Diagnosis (1) Brain TIA: Status: Acute (2) Consolidation of left lower lobe of lung: Status: Acute (3) Essential hypertension: Status: Acute (4) Other elevated white blood cell count: Status: Acute (5) Chronic obstructive pulmonary disease: Status: Acute (6) Right leg swelling: Status: Acute (7) Diabetes mellitus: Discharge Plan Disposition Patient Disposition: Home W/Home Health Services Condition: Stable Discharge Details Reason For Visit: TIA Admit Date/Time: 11/04/23 23:47 Admit Provider: Rico Archer Attending Provider: Rico Archer Primary Care Provider: Linus Saha Hospital Course Hospital Course: This is an 83-year-old female with a history significant for COPD recently treated for pneumonia TIA in 2016 not on medical therapy hypertension who presented to the emergency department after her family noted her to be confused with garbled speech. By the time she arrived to the emergency department her symptoms have resolved. Her evaluation in the emergency department included a head CTA which was negative. Also noted on her workup was consolidation of the left lower lobe. She remained monitored on medical surgical unit on telemetry with no dysrhythmia or further symptoms. Her respiratory status remained stable. Echocardiogram showed normal ejection fraction of 50-55 with no wall motion abnormalities no significant valvular abnormalities noted. Her MRI showed no acute ischemic event she does have white matter changes consistent with chronic small vessel disease also concerning was right lower extremity swelling but ultrasound showed no evidence of a DVT. She was also seen by pulthang byrd for the abnormal CT imaging. Recommendations include: - fungitell, urine histo and blasto which are pending at time of discharge - Acapella, incentive spirometer - Duonebs tid - Mucinex 1200mg bid - repeat CXR next week - I have ordered - fu in pulm at outpatient She has been eating and drinking and at her baseline. She is being discharged to home with new home health nursing for routine evaluation and management. She is being discharged to home by private vehicle with her daughter. Discharge discussed with Dr. Brenner Home Meds and New Rx's Prescriptions: New guaifenesin [Mucus Relief ER] 600 mg Tablet Extended Release 12hr 1,200 mg PO BID Qty: 60 0RF Stiolto Respimat 2.5-2.5 mcg/actuation Mist 2 puff inhalation DAILY Qty: 1 0RF Continued metoprolol tartrate 25 mg tablet 25 mg PO BID Qty: 180 3RF acetaminophen 500 MG tablet 1,000 mg PO daily prn (DME) Aerochamber MV Spacer See Dose Instructions .ROUTE .MEDSUPPLY Qty: 1 0RF Dose Instruction: As directed Rx Instructions: As directed albuterol sulfate [Ventolin HFA] 90 mcg/actuation HFA aerosol inhaler 2 puff IH Q4H PRN (Reason: shortness of breath or wheezing) Qty: 25.5 3RF albuterol sulfate 2.5 mg /3 mL (0.083 %) solution for nebulization 2.5 mg inhalation Q6H PRN (Reason: shortness of breath or wheezing) Qty: 75 0RF Discharge Instructions Instructions: Transient Ischemic Attack (DC) Stand Alone Forms: Nursing Discharge Form Referrals: Tg Baldwin MD [ [facility] STAFF PHYSICIAN] - Linus Saha MD [Primary Care Provider] - 11/09/23 3:00 pm Activity:: Activity as Tolerated Equipment/Supplies:: No Equipment Needed Diet:: As Tolerated Discharge Orders Discharge Orders: Discharge Order (Routine); Ordered 11/05/23 Ordered By: Soniya Pappas Discharge Data Discharge Date/Time-TO BE ENTERED AT DEPARTURE: 11/05/23 14:51 DS: Summary Time Spent with Patient providing and/or coordinating discharge services: Less than 30 minutes Status at Discharge Functional status at discharge: uses cane/walker Overall status at discharge: patient is back to baseline Mental Status: mental status grossly normal Speech and Movement: speech and movement normal Mood: congruent mood Affect: normal affect Quality:SDOH Health Related Social Needs: Health related social needs details none Health related social needs details: none Exam Narrative Exam Narrative: Elderly female of stated age no acute distress head is atraumatic oral mucosas moist eyes normal appearance nonicteric noninjected neck supple with no JVD respirations are even and unlabored oxygenating in the mid 90s on room air diminished in the bases bilaterally cardiovascular regular rate and rhythm she is awake alert oriented no focal deficits Psych Mental Status: mental status grossly normal Speech and Movement: speech and movement normal Mood: congruent mood Affect: normal affect DS: Data Vitals/I&O Vitals and I&O: Vital Signs Temperature 37.2 C 11/05/23 07:38 Temperature Source Tympanic 11/05/23 07:38 Pulse 87 11/05/23 09:43 Pulse Rhythm Regular 11/05/23 09:18 Respiratory Rate 14 11/05/23 09:32 Respiratory Effort Non-Labored 11/05/23 09:18 Respiratory Depth Normal 11/05/23 09:18 Respiratory Pattern Normal 11/05/23 09:18 Blood Pressure 150/63 H 11/05/23 09:16 Blood Pressure Position Sitting 11/04/23 21:02 Pulse Oximetry 92 11/05/23 09:32 Oxygen Delivery Method Room Air 11/05/23 09:32 Oxygen Flow Rate 0 11/05/23 09:32 Pain Level 6 11/05/23 12:32 Intake & Output 11/04/23 11/05/23 11/05/23 23:59 11:59 23:59 Output Total 650 / 650 Balance -650 / -650 Weight 85.7 kg 83.3 kg Output: Urine 650 / 650 Other: Urine Color Yellow Urine Appearance Clear Urine Odor Normal Voiding Methods Bedside Commode Data Completed and Pending Labs on day of discharge: Labs from last 24 hours 11/05/23 11/05/23 11/05/23 13:00 07:10 00:31 WBC RBC Hgb Hct MCV MCH MCHC RDW Plt Count MPV Immature Gran % Neutrophils % Lymphocytes % Monocytes % Eosinophils % Basophils % Nucleated RBC % Absolute Neutrophils Absolute Lymphocytes Absolute Monocytes Absolute Eosinophils Absolute Basophils RBC Morphology ESR VBG Lactate Sodium Potassium Chloride Carbon Dioxide Anion Gap BUN Creatinine Est GFR (CKD-EPI 2020) Glucose Hemoglobin A1c 6.0 H Calcium Magnesium Total Bilirubin AST ALT Alkaline Phosphatase Ammonia Creatine Kinase Troponin I < 50 C-Reactive Protein NT-Pro-B Natriuret Pep Total Protein Albumin Triglycerides 76 Total Cholesterol 163 LDL Cholesterol, Calc 91 HDL Cholesterol 57 Lipase Procalcitonin Urine Color Urine Clarity Urine pH Ur Specific [place] Urine Protein Urine Ketones Urine Blood Urine Nitrite Urine Bilirubin Urine Urobilinogen Ur Leukocyte Esterase Urine RBC Urine WBC Ur Epithelial Cells Urine Crystals Urine Bacteria Urine Casts Urine Mucus Ur Culture Indicated? Urine Glucose COVID-19 Source SARS-CoV-2 (PCR) Influenza Type A (PCR) Influenza Type B (PCR) RSV (PCR) B-(1,3)-D-Glucan Quant Pending B-(1,3)-D-Glucan Qual Pending 11/04/23 11/04/23 11/04/23 23:53 21:40 21:35 WBC RBC Hgb Hct MCV MCH MCHC RDW Plt Count MPV Immature Gran % Neutrophils % Lymphocytes % Monocytes % Eosinophils % Basophils % Nucleated RBC % Absolute Neutrophils Absolute Lymphocytes Absolute Monocytes Absolute Eosinophils Absolute Basophils RBC Morphology ESR VBG Lactate Sodium Potassium Chloride Carbon Dioxide Anion Gap BUN Creatinine Est GFR (CKD-EPI 2020) Glucose Hemoglobin A1c Calcium Magnesium Total Bilirubin AST ALT Alkaline Phosphatase Ammonia < 10 L Creatine Kinase Troponin I C-Reactive Protein NT-Pro-B Natriuret Pep Total Protein Albumin Triglycerides Total Cholesterol LDL Cholesterol, Calc HDL Cholesterol Lipase Procalcitonin Urine Color Yellow Urine Clarity Clear Urine pH 6.0 Ur Specific [place] 1.010 Urine Protein Negative Urine Ketones Negative Urine Blood Negative Urine Nitrite Negative Urine Bilirubin Negative Urine Urobilinogen 0.2 Ur Leukocyte Esterase Small H Urine RBC Negative Urine WBC 5-10 Ur Epithelial Cells Few Urine Crystals Negative Urine Bacteria Few Urine Casts Negative Urine Mucus Negative Ur Culture Indicated? Yes Urine Glucose Negative COVID-19 Source Nasopharynx SARS-CoV-2 (PCR) Negative Influenza Type A (PCR) Negative Influenza Type B (PCR) Negative RSV (PCR) Negative B-(1,3)-D-Glucan Quant B-(1,3)-D-Glucan Qual 11/04/23 21:15 WBC 15.94 H RBC 4.85 Hgb 14.2 Hct 43.7 MCV 90 MCH 29.3 MCHC 32.5 RDW 14.7 H Plt Count 263 MPV 10.1 Immature Gran % 0.4 Neutrophils % 76.2 Lymphocytes % 12.0 Monocytes % 10.7 Eosinophils % 0.3 Basophils % 0.4 Nucleated RBC % 0.0 Absolute Neutrophils 12.15 H Absolute Lymphocytes 1.91 Absolute Monocytes 1.71 H Absolute Eosinophils 0.05 Absolute Basophils 0.06 RBC Morphology Normal ESR 64 H VBG Lactate 1.2 Sodium 139 Potassium 3.9 Chloride 102 Carbon Dioxide 27.7 Anion Gap 9.3 BUN 10 Creatinine 0.7 Est GFR (CKD-EPI 2020) 85.23 Glucose 131 H Hemoglobin A1c Calcium 9.0 Magnesium 1.9 Total Bilirubin 0.9 AST 11 L ALT 13 L Alkaline Phosphatase 86 Ammonia Creatine Kinase 21 L Troponin I < 50 C-Reactive Protein 11.71 H NT-Pro-B Natriuret Pep 290 Total Protein 7.1 Albumin 3.3 L Triglycerides Total Cholesterol LDL Cholesterol, Calc HDL Cholesterol Lipase 43 Procalcitonin < 0.1 Urine Color Urine Clarity Urine pH Ur Specific [place] Urine Protein Urine Ketones Urine Blood Urine Nitrite Urine Bilirubin Urine Urobilinogen Ur Leukocyte Esterase Urine RBC Urine WBC Ur Epithelial Cells Urine Crystals Urine Bacteria Urine Casts Urine Mucus Ur Culture Indicated? Urine Glucose COVID-19 Source SARS-CoV-2 (PCR) Influenza Type A (PCR) Influenza Type B (PCR) RSV (PCR) B-(1,3)-D-Glucan Quant B-(1,3)-D-Glucan Qual 11/04/23 23:53 Urine - Reflex from Urine Culture - Pending 11/04/23 21:58 Blood Blood Culture - Pending 11/04/23 21:40 Blood Blood Culture - Pending Preliminary micro results at discharge 11/04/23 23:53 Urine Culture - Pending Urine - Reflex from Ua 11/04/23 21:58 Blood Culture - Pending Blood 11/04/23 21:40 Blood Culture - Pending Blood PFSH All Active Problems (Updated 11/05/23 @ 08:59 by Tg Baldwin MD) Emphysema lung (Acute) Discharge planning issues (Acute) DVT prophylaxis (Acute) Right leg swelling (Acute) Consolidation of left lower lobe of lung (Acute) Brain TIA (Acute) Pneumonia (Acute) SOB (shortness of breath) (Acute) Grief reaction (Chronic) suicide of Adjustment disorder with anxious mood (Acute) Tremulousness (Acute) Essential hypertension (Acute) Obesity (Chronic) Chronic obstructive pulmonary disease with hypoxia (Acute) UTI (urinary tract infection) (Acute) Protein-calorie malnutrition, moderate (Acute) Weakness of both lower extremities (Acute) Excessive cerumen in both ear canals (Acute) Hiatal hernia (Acute) Vertigo (Acute) Dizziness of unknown etiology (Acute) Traumatic hematoma of abdominal wall with infection (Acute) Malignant neoplasm of breast (female), unspecified site (Acute) LEFT BREAST (Note patient denies any history of breast cancer. She says she has had a spot on her left breast that is been there for 45 years and she declines to have any mammogram or work-up) Essential hypertension (Acute 04/04/12) Nausea (Acute) Abdominal wall hematoma (Acute) Other elevated white blood cell count (Acute) Abdominal wall bulge (Acute) Allergy (Acute) Phlegm in throat (Acute) Cough (Chronic) reactive/inflammatory Chronic cough (Chronic) sounds/looks allergic Elevated TSH (Chronic) Uncomplicated asthma (Acute 04/04/12) Transient cerebral ischemia (Acute 06/22/16) * NORMAL HEAD CT; [facility] 06/22/16 Increased body mass index (Chronic) History of tobacco use (Acute) Grief reaction (Acute) of son Chronic obstructive pulmonary disease (Acute) Patient denies this diagnosis and I could not find any formal PFTs to support the diagnosis Choledocholithiasis (Acute 10/04/16) 10/04/16 INCREASED LFT'S Adrenal adenoma (Acute) Cholecystitis (Acute) Medical History Diabetes mellitus COVID Viral URI History of PSVT (paroxysmal supraventricular tachycardia) Nausea Fracture of proximal end of right humerus (03/03/19) COPD (chronic obstructive pulmonary disease) TIA (transient ischemic attack) Diverticulitis Surgical History Cholecystectomy (09/03/16) Family History Sister , 85 Cancer Social History Smoking/Tobacco Use Status: Former Tobacco Use Quit Date: 12/14/88 Tobacco: How many years used: 35 Second Hand Exposure: Yes Smoking risk assessment performed?: Yes Alcohol Intake: never Substance use type: does not use Household members: none Housing: house Communication Needs: None Pets and animals: Yes Pets and animals: dog(s) Current gender identity: female What is your relationship status?: How often do you talk on the phone with friends or family?: decline to answer How often do you get together with friends or relatives?: decline to answer How often do you attend restorationism or mormonism services?: decline to answer Do you belong to any clubs or organized social groups?: decline to answer Panel score (0-1 are the most socially isolated patients): 1 What type of physical activity do you participate in: none Special curtis needs: No Seatbelt use: always Drive intox or ride w/intox automobile drivers: No Do you feel safe at home: Yes Do you feel safe in your relationship?: Yes Additional Social history: Lives in her own apartment in [facility], . Two children have apartments in the same house Time Spent with Patient Time Spent with Patient: 45-69 minutes Time was spent: preparing to see the patient(eg.review tests), obtaining and/or reviewing separately otained hiistory, ordering medications,tests, procedures, indepentently interpreting results, counseling the patient and care coordination
--- NOTE | 2023-11-05 16:52 | PDOC.CMDIS ---
Date of service: 11/05/23 Time of Service: 16:52 LACE Index Scoring Tool Questions: Length of Stay (in days): 1 Was the patient admitted via the E.D.?: Yes Comorbidities: Diabetes w/o Complication, Chronic Pulmonary Disease and Any Tumor E.D. Visits: 1 Answers: Total Score: 10 Risk of Readmission: High Risk Care Management Discharge Plan Reason for Hospitalization: TIA Discharge Plan: Heavenly will return home with new orders for HH RN. Her daughter will drive her home via private vehicle. She will follow up with her PCP and discharge plan of care. She is happy to be going home. Patient/Family Education Needs: Review discharge instructions and limitations, discussion of self care needs including ask me three. Services Needed at Discharge: Home Health Care Services (new HH RN) SDOH Health Related Social Needs: Health related social needs details none Health related social needs details: none
[2023-11-08 14:29] LABS: Fungitell Qualitative Negative (Negative); Fungitell Quantitative Value <31 pg/mL (<60 pg/mL)
== END 2023-11-05 14:51 | disposition home health service (06) | DRG 69 ==
LOC: ER 11-05 00:27 → MS 11-05 00:42
PROVIDERS: Physician Assistant; Student in an Organized Health Care Education/Training Program; Admitting Provider Family Medicine; Emergency Provider Student in an Organized Health Care Education/Training Program; PCP Family Medicine; Visit Provider Family Medicine
DX: G45.9 Transient cerebral ischemic attack, unspecified (principal); J18.1 Lobar pneumonia, unspecified organism; J43.9 Emphysema, unspecified; I10 Essential (primary) hypertension; D72.828 Other elevated white blood cell count; Z86.73 Personal history of transient ischemic attack (TIA), and cerebral infarction without residual deficits; R47.81 Slurred speech; R27.8 Other lack of coordination; R60.0 Localized edema; F43.22 Adjustment disorder with anxiety; E66.9 Obesity, unspecified; K44.9 Diaphragmatic hernia without obstruction or gangrene; R05.3 Chronic cough; Z87.891 Personal history of nicotine dependence; Z68.35 Body mass index [BMI] 35.0-35.9, adult
CPT/HCPCS: 00123; 36415; 70496; 70498; 80053; 80061; 82550; 83690; 84145; 85652; 87040; 87449; 87637; 93005; 93306; 94640; 99222; 99285; J1650; 70551; 81003; 81015; 82140; 83036; 83605; 83735; 83880; 84484; 85025; 86140; 87086; 93010; 93971; 94664; 94667; 94760; 99239; J2060; J3490; J7620

== ENCOUNTER → 2023-11-05 08:23 | Outpatient (BNVA) | payer MEDICARE, SELFPAY | PROVIDERS: PCP Family Medicine; Referring Provider Family Medicine; Visit Provider Student in an Organized Health Care Education/Training Program ==

== ENCOUNTER → 2023-11-15 15:21 | Outpatient (CLI) | payer MEDICARE, SELFPAY ==
--- NOTE | 2023-11-15 13:00 | DI.RAD_ITS ---
Exam(s) XR CHEST 2V PA LATERAL EXAM: XR CHEST 2V PA LATERAL CLINICAL HISTORY: assess resolution of pneumonia,j18.1 TECHNIQUE: 2D digital imaging was performed of the chest. Two images were obtained. PA and lateral views were obtained. COMPARISON: CR XR CHEST 2V PA LATERAL from 11/01/2023 FINDINGS: MEDIASTINUM: Normal. HEART: Normal. PULMONARY VASCULATURE: Normal. LUNGS: The lungs appear hyperinflated suggesting underlying COPD. No focal consolidating infiltrate is seen. PLEURAL SPACE: There is decrease in size of the left pleural effusion. No right pleural effusion. N o pneumothorax. BONE:Within normal limits for the patient's age. OTHER FINDINGS:Normal. IMPRESSION: 1. Interval decrease in size of the left pleural effusion with a small residual effusion. 2. No focal consolidating infiltrates. DATA REPOSITORY: RADIATION DOSE DELIVERED:
== END ==
PROVIDERS: PCP Family Medicine; Visit Provider Student in an Organized Health Care Education/Training Program
DX: J18.1 Lobar pneumonia, unspecified organism (principal); J90 Pleural effusion, not elsewhere classified; J44.9 Chronic obstructive pulmonary disease, unspecified
CPT/HCPCS: 71046

== ENCOUNTER 2024-04-06 11:32 | Emergency (ER) | payer MEDICARE, SELFPAY ==
[2024-04-06] VITALS (11 sets, daily range): BP systolic 100–156; BP diastolic 16–86; PULSE 53–78; RESP 15–21; O2SAT 89–96
--- NOTE | 2024-04-06 11:15 | RT.EKG_ITS ---
APPROVED REPORT Exam: Resting ECG Reason for Exam: fall Patient Location: E HR:60 bpm ECG Measurements Heart Rate 60 AXIS CA 155 P 67 QRSd 91 QRS 18 QT 423 T 52 QTc 422 Conclusion Sinus rhythm. 60 normal axis no stemi
--- NOTE | 2024-04-06 11:45 | DI.CT_ITS ---
Exam(s) CT HEAD CERVICAL SPINE WO EXAM: CT HEAD CERVICAL SPINE WO CLINICAL HISTORY: FALL. TECHNIQUE: Imaging Protocol: Axial computed tomography images with coronal and sagittal reformatted images were created and reviewed COMPARISON: CT CT BRAIN NECK CTA from 11/04/2023 FINDINGS: Head CT Ventricles and Extra axial spaces: Normal in size and morphology for the patient's age. Hemorrhage: None. Cerebral parenchyma: No evidence of mass or acute infarct. Atrophy and mild white matter changes c onsistent with the patient's age. Midline shift: None. Brainstem/Cerebellum: Normal. Calvarium: Hyperostosis frontalis interna. Hand again Visualized Paranasal sinuses/Mastoids: Clear. Soft tissues: Scalp swelling right frontal and left occipital regions. Cervical Spine CT Exam limited by motion. BONES: Vertebral body heights are maintained. Alignment is normal. There is no evidence of acute frac ture. Degenerative disc changes and facet degenerative changes are seen . SOFT TISSUES: No paraspinal hematoma. The airway appears intact. No pneumothorax is seen at the lung apices. IMPRESSION: Head CT: Scalp swelling. No acute intracranial abnormality. C-spine CT: Degenerative changes, no acute abnormality. RADIATION DOSE DELIVERED: Total DLP DATA REPOSITORY: All CT scans at this facility are submitted to the National Radiology Data Registry (NRDR) Dose Index Registry (DIR) with the [employer] (ACR). RADIATION OPTIMIZATION: All CT scans at this facility use at least one of these dose optimization te chniques: automated exposure control; mA and/or kV adjustment per patient size (includes targeted exa ms where dose is matched to clinical indication); or iterative reconstruction.
--- NOTE | 2024-04-06 11:45 | DI.CT_ITS ---
Exam(s) CT CHEST/ABD/PEL W EXAM: CT CHEST/ABD/PEL W wall that things CLINICAL HISTORY: TRAUMA. TECHNIQUE: Imaging Protocol: Axial computed tomography images with coronal and sagittal reformatted images were created and reviewed CONTRAST MATERIAL: Intravenous: Omnipaque 350 Contrast volume:100 ml Oral: yes / no COMPARISON: CT CT BRAIN NECK CTA from 11/04/2023 FINDINGS: CHEST: Tracheobronchial tree: Patent. Pulmonary parenchyma: No consolidation or dominant measurable mass. Pleura: No effusion or pneumothorax. Mediastinum: Within normal limits. Aorta: Thoracic portion non-dilated. Pulmonary arteries: No visible emboli. Heart: No pericardial effusion. Bones: Unremarkable for age. No lytic or blastic lesions.No compression fractures. Soft tissues: Unremarkable. ABDOMEN and PELVIS: Liver: Normal density. No measurable mass. Gallbladder and biliary tract: Status post cholecystectomy. No biliary dilatation. Pancreas: Normal density, no abnormal calcifications or inflammatory process. Spleen: Normal. Kidneys: Normal size, contour and axis. No radiodense stones. No obstructive uropathy. No suspicious masses seen. Adrenal glands: No masses seen. Aorta: Abdominal portion non-dilated. Atherosclerotic changes. Lymph nodes: Within normal limits. Soft tissues: Small fat containing umbilical hernia Bladder: Unremarkable. Bowel: No obstruction or bowel wall thickening. . Diverticulosis. No evidence of diverticulitis. A ppendix normal. Peritoneal cavity: No ascites. No focal collection. No mesenteric inflammatory response. No free ai r. Bones: Unremarkable for age. Reproductive organs: Within normal limits. IMPRESSION: No acute abnormality in the chest, abdomen or pelvis. RADIATION DOSE DELIVERED: Total DLP DATA REPOSITORY: All CT scans at this facility are submitted to the National Radiology Data Registry (NRDR) Dose Index Registry (DIR) with the [employer] (ACR). RADIATION OPTIMIZATION: All CT scans at this facility use at least one of these dose optimization te chniques: automated exposure control; mA and/or kV adjustment per patient size (includes targeted exa ms where dose is matched to clinical indication); or iterative reconstruction.
[2024-04-06] MEDS: Normal Saline - Diluent 50 ML VIAL IJ (12:40)
[2024-04-06] MEDS: Omnipaque 350 MG/ML 100 ML BTL IJ (12:41)
[2024-04-06] MEDS: ACETAMINOPHEN 1,000 MG/100 ML BTL 400 MG IVPB (13:01)
--- NOTE | 2024-04-06 13:01 | DI.RAD_ITS ---
Exam(s) XR HAND LT COMPLETE EXAM: XR HAND LT COMPLETE CLINICAL HISTORY: LEFT HAND INJURY. TECHNIQUE: 2D digital imaging was performed. Three views. COMPARISON: No exams were available for comparison FINDINGS: BONES: No acute fracture is present. 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 No b yudy destructive lesion is seen. JOINTS: No dislocation present. SOFT TISSUE: Overlying material. Swelling. IMPRESSION: No acute bony abnormality DATA REPOSITORY: RADIATION DOSE DELIVERED:
[2024-04-06] MEDS: ceFAZolin 2 GM/50 ML BAG IVPB (13:21)
[2024-04-06] MEDS: Ibuprofen 600 MG TAB PO (14:38)
[2024-04-06] MEDS: Methocarbamol 500 MG TAB PO (14:38)
--- NOTE | 2024-04-06 15:15 | DI.RAD_ITS ---
Exam(s) XR SHOULDER LT COMPLETE 2+V XR HUMERUS LT EXAM: XR SHOULDER LT COMPLETE 2+V and XR humerus LT CLINICAL HISTORY: arm pain. TECHNIQUE: 2D digital imaging was performed of the left humerus and shoulder. Six images were obtai chinedu. Multiple views were obtained. COMPARISON: CR XR SHOULDER RT COMPLETE 2+V from 07/17/2019 CR XR HUMERUS LT from 04/06/2024 FINDINGS: BONES: No acute fracture is present. No bony destructive lesion is seen. There is mild spurring at th e lateral aspect of the acromion. JOINTS: No dislocation present. There are degenerative changes seen at the acromioclavicular joint. The glenohumeral joint is well maintained. SOFT TISSUE: Normal. IMPRESSION: 1. No acute fracture or dislocation. 2. Degenerative changes at the acromioclavicular joint. DATA REPOSITORY: RADIATION DOSE DELIVERED:
--- NOTE | 2024-04-06 16:44 | NUR.NOTE ---
Referral faxed to PCP for wound care, possible referral to [facility] to be seen WedApr 10. Nursing Note:
--- NOTE | 2024-04-06 16:49 | ED.GENADUL_ITS ---
Discharge Plan Disposition Patient Disposition: Home Condition: Stable Discharge Details Clinical Impression: Gait instability, Fall, Multiple skin tears Primary Care Provider: Linus Saha ED Provider: Beth Sanchez Home Meds and New Rx's Prescriptions: New cephalexin 500 mg capsule 500 mg PO BID 5 Days Qty: 10 0RF No Action Bevespi Aerosphere 9-4.8 mcg HFA aerosol inhaler 2 puff inhalation BID Qty: 10.7 2RF aspirin 81 mg tablet,delayed release (DR/EC) 81 mg PO DAILY Qty: 90 3RF acetaminophen 500 MG tablet 1,000 mg PO daily prn (DME) Aerochamber MV Spacer See Dose Instructions .ROUTE .MEDSUPPLY Qty: 1 0RF Dose Instruction: As directed Rx Instructions: As directed metoprolol tartrate 25 mg tablet 25 mg PO BID Qty: 180 3RF albuterol sulfate [Ventolin HFA] 90 mcg/actuation HFA aerosol inhaler 2 puff IH Q4H PRN (Reason: shortness of breath or wheezing) Qty: 25.5 3RF albuterol sulfate 2.5 mg /3 mL (0.083 %) solution for nebulization 2.5 mg inhalation Q6H PRN (Reason: shortness of breath or wheezing) Qty: 75 0RF guaifenesin [Mucus Relief ER] 600 mg Tablet Extended Release 12hr 1,200 mg PO BID Qty: 60 0RF Stiolto Respimat 2.5-2.5 mcg/actuation Mist 2 puff inhalation DAILY Qty: 1 0RF Discharge Instructions Additional Instructions: * Please keep wounds clean with soap and water. Do not scrub the areas. Pat dry. * The areas of Steri-Strip will fall off on their own and should not be removed * The area that has the yellow cause should be replaced daily. This will help with wound healing. * You can cover the wounds with a nonadherent dressing * You will likely be sore for the next few days, continue Motrin Tylenol * Please follow-up with your primary care provider in 1 week for wound check and suture removal * Take antibiotic as prescribed to help prevent infection HPI General Date/Time Provider Initiated Documentation: 04/06/24 11:47 . Limitations to Documentation: no limitations . Information obtained by: patient and EMS . HPI Narrative: 83-year-old female with past medical history of TIA, hypertension, anxiety presents for evaluation after a fall. Patient came in by EMS after a fall downstairs. She states that she lost her balance and fell down the stairs. She was carrying a laundry basket and could not see the stairs. She is unsure if she lost consciousness. She reports severe pain in her left arm. She was noted to have multiple wounds by EMS. She was placed in a c-collar. Related Data Home Medications ?Medication ?Instructions ?Recorded ?Confirmed acetaminophen 500 mg tablet 1,000 mg PO daily prn 05/01/16 03/28/24 inhalational spacing device #1 ea 11/06/22 03/28/24 (Aerochamber MV spacer) albuterol sulfate 2.5 mg/3 mL 2.5 mg (3 mL) inhalation Q6H PRN 10/16/23 03/28/24 (0.083 %) solution for nebulization shortness of breath or wheezing #75 mL guaifenesin 600 mg tablet, 1,200 mg (2 x 600 mg) PO BID #60 11/05/23 03/28/24 extended release 12 hr (Mucus tabs Relief ER) tiotropium 2.5 mcg-olodaterol 2.5 2 puff inhalation DAILY #1 g 11/05/23 03/28/24 mcg/actuation mist for inhalation (Stiolto Respimat) aspirin 81 mg tablet,delayed 81 mg PO DAILY #90 tabs 11/09/23 03/28/24 release glycopyrrolate 9 mcg-formoterol 2 puff inhalation BID #10.7 grams 11/09/23 03/28/24 4.8 mcg HFA aerosol inhaler (Bevespi Aerosphere) metoprolol tartrate 25 mg tablet 25 mg PO BID #180 tab-caps 02/28/24 03/28/24 albuterol sulfate 90 mcg/actuation 2 puff inhalation Q4H PRN 03/08/24 03/28/24 aerosol inhaler (Ventolin HFA) shortness of breath or wheezing #25.5 grams cephalexin 500 mg capsule 500 mg PO BID 5 days #10 caps 04/06/24 Previous Rx's ?Medication ?Instructions ?Recorded inhalational spacing device #1 ea 11/06/22 (Aerochamber MV spacer) albuterol sulfate 2.5 mg/3 mL 2.5 mg (3 mL) inhalation Q6H PRN 10/16/23 (0.083 %) solution for nebulization shortness of breath or wheezing #75 mL guaifenesin 600 mg tablet, 1,200 mg (2 x 600 mg) PO BID #60 11/05/23 extended release 12 hr (Mucus tabs Relief ER) tiotropium 2.5 mcg-olodaterol 2.5 2 puff inhalation DAILY #1 g 11/05/23 mcg/actuation mist for inhalation (Stiolto Respimat) aspirin 81 mg tablet,delayed 81 mg PO DAILY #90 tabs 11/09/23 release glycopyrrolate 9 mcg-formoterol 2 puff inhalation BID #10.7 grams 11/09/23 4.8 mcg HFA aerosol inhaler (Bevespi Aerosphere) metoprolol tartrate 25 mg tablet 25 mg PO BID #180 tab-caps 02/28/24 albuterol sulfate 90 mcg/actuation 2 puff inhalation Q4H PRN 03/08/24 aerosol inhaler (Ventolin HFA) shortness of breath or wheezing #25.5 grams cephalexin 500 mg capsule 500 mg PO BID 5 days #10 caps 04/06/24 Allergies Allergy/AdvReac Type Severity Reaction Status Date / Time codeine AdvReac Severe GI UPSET Verified 03/28/24 09:56 omeprazole AdvReac Other (See Verified 03/28/24 09:56 Comment) Edward AdvReac Severe Nausea Uncoded 03/28/24 09:56 General Stated Complaint: Trauma INOCENCIA: 2 Exam Narrative Exam Narrative: Review of Systems: All systems reviewed & are unremarkable except as noted in HPI and below Well-developed, no acute distress NCAT C-collar in place RRR Unlabored respiratory effort clear bilaterally Nondistended abdomen soft nontender No deformities appreciated, pelvis stable, midline back without step-off or tenderness no focal neurologic deficits + Anxious Multiple skin tears noted * 1 on the right forearm * 1 on the left forearm * 1 large avulsion of the dorsal left hand Course Vital Signs Vital signs: Vital Signs Pulse 60 04/06/24 11:28 Respiratory Rate 18 04/06/24 11:28 Blood Pressure 156/86 H 04/06/24 11:28 Pulse Oximetry 96 04/06/24 11:28 Pulse 60 08/22/24 11:28 Respiratory Rate 18 04/06/24 11:28 Respiratory Effort Normal 04/06/24 11:58 Respiratory Depth Normal 04/06/24 11:58 Blood Pressure 156/86 H 04/06/24 11:28 Pulse Oximetry 96 04/06/24 11:28 Procedures Laceration Laceration 1: Site: other (Bilateral forearm skin tears) Skin layer closed with: other (Steri-Strips) Technique: other (Skin area irrigated with saline, skin rolled back into place with good coverage over the wound, Steri-Strips placed to keep the skin down) Laceration 2: Site: hand Side (If applicable): left Technique: other (Large avulsion of the left hand skin, tendon exposed, no foreign body, wound irrigated and closed with 3-0 Prolene simple interrupted 8 sutures, some Steri-Strips were also placed over smaller skin tears) Medical Decision Making Emergent evaluation of traumatic injuries. Patient reports falling down stairs. She is neurologically intact and not on any anticoagulation. She does c-collar placed by EMS. Imaging of head neck and chest abdomen pelvis were obtained given the mechanism of her injury. All of the scans were unremarkable. She was given 2 g of Ancef for her large hand wound and tetanus was updated today. She was provided pain control. Left hand wound was x-rayed, and there is no fracture noted. She was also complaining of left shoulder pain, and imaging was negative, she is able to have full range of motion that she is very hesitant to do so. The wound was repaired, she will be discharged on antibiotic, she is recommended to follow-up with her PCP as soon as possible for wound check and further wound care management. Sutures should come out in 1 week. Unfortunately although she requested home health, she is not a candidate given that she is ambulatory. Her insurance would not pay for this service. And wound care can be managed through her primary care provider. Patient was able to get up and ambulate independently in the ER. Advised that she was going to be very sore for the next few days and I did recommend continuation of Motrin and Tylenol. Quality:SDOH Health Related Social Needs: 2 Health related social needs details none PFSH All Active Problems Multiple skin tears (Acute) Fall (Acute) Gait instability (Acute) Peripheral edema (Acute) Emphysema lung (Acute) Right leg swelling (Acute) Consolidation of left lower lobe of lung (Acute) Brain TIA (Acute) Pneumonia (Acute) SOB (shortness of breath) (Acute) Grief reaction (Chronic) suicide of Adjustment disorder with anxious mood (Acute) Tremulousness (Acute) Essential hypertension (Acute) Obesity (Chronic) Chronic obstructive pulmonary disease with hypoxia (Acute) UTI (urinary tract infection) (Acute) Protein-calorie malnutrition, moderate (Acute) Weakness of both lower extremities (Acute) Excessive cerumen in both ear canals (Acute) Hiatal hernia (Acute) Vertigo (Acute) Dizziness of unknown etiology (Acute) Traumatic hematoma of abdominal wall with infection (Acute) Malignant neoplasm of breast (female), unspecified site (Acute) LEFT BREAST (Note patient denies any history of breast cancer. She says she has had a spot on her left breast that is been there for 45 years and she declines to have any mammogram or work-up) Essential hypertension (Acute 04/04/12) Nausea (Acute) Abdominal wall hematoma (Acute) Other elevated white blood cell count (Acute) Abdominal wall bulge (Acute) Allergy (Acute) Phlegm in throat (Acute) Cough (Chronic) reactive/inflammatory Chronic cough (Chronic) sounds/looks allergic Elevated TSH (Chronic) Uncomplicated asthma (Acute 04/04/12) Transient cerebral ischemia (Acute 06/22/16) * NORMAL HEAD CT; [facility] 06/22/16 Increased body mass index (Chronic) History of tobacco use (Acute) Grief reaction (Acute) of son Chronic obstructive pulmonary disease (Acute) Patient denies this diagnosis and I could not find any formal PFTs to support the diagnosis Choledocholithiasis (Acute 10/04/16) 10/04/16 INCREASED LFT'S Adrenal adenoma (Acute) Cholecystitis (Acute) Medical History Diabetes mellitus COVID Viral URI History of PSVT (paroxysmal supraventricular tachycardia) Nausea Fracture of proximal end of right humerus (03/03/19) COPD (chronic obstructive pulmonary disease) TIA (transient ischemic attack) Diverticulitis Surgical History Cholecystectomy (09/03/16) Family History Sister , 85 Cancer Social History Smoking/Tobacco Use Status: Former Tobacco Use Quit Date: 12/14/88 Tobacco: How many years used: 35 Second Hand Exposure: Yes Smoking risk assessment performed?: Yes Alcohol Intake: never Substance use type: does not use Household members: none Housing: house Communication Needs: None Pets and animals: Yes Pets and animals: dog(s) Current gender identity: female What is your relationship status?: How often do you talk on the phone with friends or family?: decline to answer How often do you get together with friends or relatives?: decline to answer How often do you attend denominational or uatsdin services?: decline to answer Do you belong to any clubs or organized social groups?: decline to answer Panel score (0-1 are the most socially isolated patients): 1 What type of physical activity do you participate in: none Special curtis needs: No Seatbelt use: always Drive intox or ride w/intox airport driver: No Do you feel safe at home: Yes Do you feel safe in your relationship?: Yes Additional Social history: Lives in her own apartment in [facility], . Two children have apartments in the same house
== END 2024-04-06 17:02 | disposition home or self-care (01) ==
PROVIDERS: Emergency Provider Emergency Medicine; PCP Family Medicine
DX: S61.412A Laceration without foreign body of left hand, initial encounter (principal); S51.811A Laceration without foreign body of right forearm, initial encounter; S91.311A Laceration without foreign body, right foot, initial encounter; M25.512 Pain in left shoulder; E11.9 Type 2 diabetes mellitus without complications; J44.9 Chronic obstructive pulmonary disease, unspecified; F41.9 Anxiety disorder, unspecified; Z23 Encounter for immunization; Z79.84 Long term (current) use of oral hypoglycemic drugs; Z79.82 Long term (current) use of aspirin; Z86.73 Personal history of transient ischemic attack (TIA), and cerebral infarction without residual deficits; Z87.891 Personal history of nicotine dependence; W10.8XXA Fall (on) (from) other stairs and steps, initial encounter; Y93.01 Activity, walking, marching and hiking; Y92.018 Other place in single-family (private) house as the place of occurrence of the external cause
CPT/HCPCS: 12001; 36415; 74177; 90471; 90715; 93005; 96365; 96366; 96367; 99285; 70450; 71260; 72125; 73030; 73060; 73130; 93010; J0131; J0690; J2004; J3490